=== PATIENT | male | born 1955 | race Caucasian/White ===

== ENCOUNTER → 2017-09-26 12:27 | Outpatient (CLI) | payer BC, SELFPAY | PROVIDERS: PCP General Practice; Visit Provider Surgery | DX: K62.89 Other specified diseases of anus and rectum (principal); I25.10 Atherosclerotic heart disease of native coronary artery without angina pectoris; I10 Essential (primary) hypertension; Z01.818 Encounter for other preprocedural examination | CPT/HCPCS: 93005; 93010 ==

== ENCOUNTER 2017-12-20 11:40 | Outpatient (CLI) | payer BC, SELFPAY ==
--- NOTE | 2017-12-20 11:40 | DI.RAD_ITS ---
SYMPTOM/DIAGNOSIS: PAIN RIGHT KNEE: Two views. There is moderate narrowing of the medial femoral tibial joint space. Periarticular spurring is seen involving all three joint compartments. There are large enthesophytes seen at the superior and inferior patella. There are also hypertrophic changes seen at the anterior tibial tuberosity. No acute fracture or dislocation is seen. The soft tissues are unremarkable. IMPRESSION: Moderate osteoarthritis of the right knee.
== END 2017-12-20 12:00 ==
PROVIDERS: PCP General Practice; Visit Provider Physician Assistant Surgical
DX: M25.561 Pain in right knee (principal); M17.11 Unilateral primary osteoarthritis, right knee
CPT/HCPCS: 73560

== ENCOUNTER 2018-06-30 09:29 | Emergency (ER) | payer BC, SELFPAY ==
[2018-06-30 09:34] VITALS: BP 156/116; PULSE 69; RESP 20; TEMP 36.2; O2SAT 96
--- NOTE | 2018-06-30 09:34 | W.ED.GENAD ---
Discharge Plan Disposition Patient Disposition: HOME Condition: Stable Discharge Details Chief Complaint: Epistaxis Clinical Impression: Right-sided epistaxis Primary Care Provider: Emery Goel ED Provider: Gumaro Delong Home Meds and New Rx's Prescriptions: New oxycodone 5 mg tablet 5 mg PO Q6H PRN (Reason: pain) Qty: 12 RF: 0 Continued acetaminophen [Tylenol Extra Strength] 500 mg tablet 1,000 mg PO DAILY PRNRF: 0 celecoxib [Celebrex] 200 mg capsule 200 mg PO DAILY RF: 0 celecoxib [Celebrex] 200 mg capsule 200 mg PO DAILY RF: 0 lisinopril 20 MG tablet 40 mg PO DAILY RF: 0 hydrochlorothiazide 25 MG tablet 25 mg PO DAILY RF: 0 doxazosin 4 MG tablet 4 mg PO DAILY RF: 0 Eliquis 5 MG tablet 5 mg PO BID RF: 0 metoprolol succinate 50 MG tablet extended release 24 hr 3 tab PO DAILY RF: 0 atorvastatin [Lipitor] 10 MG tablet 10 mg PO DAILY RF: 0 aspirin [Aspirin Low-Strength] 81 MG tablet,chewable 81 mg PO DAILY RF: 0 Discharge Instructions Instructions: Nosebleed (ED) Additional Instructions: if you are not contacted for an appointment with an ears, nose and throat specialist for Tuesday or Tuesday return to the emergency department on those days to have the packing removed if you have worsening bleeding return to the emergency department Medical Decision Making 62 yo male on asa and eliquis for afib and cad, comes in with right sided nose bleed that started this morning. Denies any trauma, no chest pain or sob. Direct pressure for 15 minutes hasn't slowed it down and has significant oozing from anterior right nare on exam, do not feel afrin likely to control bleeding so will place rhino rocket and reassess. Oozing is from anterior nose so doubt posterior nose bleed rhino rocket placed without incident and complications and bleeding has ceased. Will try and see if we can get him an appointment to see if ent can remove it Tuesday or tuesday, if unable advised to return here for removal Differential Diagnosis epistaxis, anterior vs posterior HPI General Mode of arrival: ambulatory. Date/Time Provider Initiated Documentation: 06/30/18 09:34. Limitations to Documentation: no limitations. Information obtained by: patient. History of Present Illness 62 year old M presents to the emergency department with the chief complaint of nose bleed, described as moderate, No relieving factors improve symptom(s), No exacerbating factors reported . Patient notes no other symptoms.. Patient did receive the following treatments prior to arrival, none Related Data Home Medications Medication Instructions Recorded Confirmed hydrochlorothiazide 25 mg PO DAILY 06/03/14 06/30/18 lisinopril 40 mg PO DAILY 06/03/14 06/30/18 Eliquis 5 mg PO BID 03/02/17 06/30/18 doxazosin 4 mg PO DAILY 03/02/17 06/30/18 aspirin [Aspirin Low-Strength] 81 mg PO DAILY 09/26/17 06/30/18 atorvastatin [Lipitor] 10 mg PO DAILY 09/26/17 06/30/18 metoprolol succinate 3 tab PO DAILY 09/26/17 06/30/18 acetaminophen 500 mg tablet 1,000 mg PO DAILY PRN tab 12/20/17 06/30/18 celecoxib 200 mg capsule 200 mg PO DAILY 12/23/17 06/30/18 celecoxib 200 mg capsule 200 mg PO DAILY 06/15/18 06/30/18 oxycodone 5 mg PO Q6H PRN #12 tab 06/30/18 Previous Rx's Medication Instructions Recorded oxycodone 5 mg PO Q6H PRN #12 tab 06/30/18 Allergies Allergy/AdvReac Type Severity Reaction Status Date / Time lansoprazole [From Prevacid] Allergy Intermediate Hives Verified 06/30/18 09:37 simvastatin [From Zocor] AdvReac Mild muscle Verified 06/30/18 09:37 aches Review of Systems Review of Systems All systems reviewed & are unremarkable except as noted in HPI and below Constitutional Denies chills, Denies fever(s) and Denies weakness Cardiovascular Denies chest pain and Denies dyspnea Respiratory Denies cough and Denies dyspnea Gastrointestinal Denies abdominal pain, Denies nausea and Denies vomiting Integumentary/Breasts Denies rash Neurologic Denies weakness PFSH Medical History CAD (coronary artery disease) CVA (cerebral vascular accident) (04/14/13) Depression HTN (hypertension) Hyperlipidemia [place] (myocardial infarction) DAVEY (obstructive sleep apnea) Obesity PAF (paroxysmal atrial fibrillation) Surgical History Cholecystectomy Colonoscopy - MAC (09/30/17) Coronary Stent Tonsillectomy Social History Smoking/Tobacco Use Status: Never Alcohol Intake: never Drug use: Rarely Do you feel safe at home: Yes Do you feel safe in your relationship?: Yes Exam Const General: no acute distress Orientation: alert HENMT Head: normal to inspection Ears: external ears normal General nose exam: no nasal polyps Mouth: moist mucous membranes Eyes General: appearance normal, both eyes and all related structures Neck Neck: normal visual inspection Resp Effort & Inspection: normal respiratory effort and able to speak in complete sentences Cardio Rate: regular rate Skin General skin exam: no rashes or lesions noted Neuro General: alert and oriented x3 Extrem General: normal to inspection Psych Mental Status: mental status grossly normal Procedures Epistaxis Control Time Out Performed: Yes Nostril: right Direct Inspection: yes Clots Removed by: blowing nose Cautery Used: none Device Inserted: other (rhino rocket) Device Size: 7 Patient Tolerated Procedure: well Complications: other (none)
--- NOTE | 2018-06-30 09:37 | ED.GENADUL_ITS ---
Discharge Plan Disposition Patient Disposition: HOME Condition: Stable Discharge Details Chief Complaint: Epistaxis Clinical Impression: Right-sided epistaxis Primary Care Provider: Emery Goel ED Provider: Gumaro Delong Home Meds and New Rx's Prescriptions: New oxycodone 5 mg tablet 5 mg PO Q6H PRN (Reason: pain) Qty: 12 RF: 0 Continued acetaminophen [Tylenol Extra Strength] 500 mg tablet 1,000 mg PO DAILY PRNRF: 0 celecoxib [Celebrex] 200 mg capsule 200 mg PO DAILY RF: 0 celecoxib [Celebrex] 200 mg capsule 200 mg PO DAILY RF: 0 lisinopril 20 MG tablet 40 mg PO DAILY RF: 0 hydrochlorothiazide 25 MG tablet 25 mg PO DAILY RF: 0 doxazosin 4 MG tablet 4 mg PO DAILY RF: 0 Eliquis 5 MG tablet 5 mg PO BID RF: 0 metoprolol succinate 50 MG tablet extended release 24 hr 3 tab PO DAILY RF: 0 atorvastatin [Lipitor] 10 MG tablet 10 mg PO DAILY RF: 0 aspirin [Aspirin Low-Strength] 81 MG tablet,chewable 81 mg PO DAILY RF: 0 Discharge Instructions Instructions: Nosebleed (ED) Additional Instructions: if you are not contacted for an appointment with an ears, nose and throat specialist for Tuesday or Tuesday return to the emergency department on those days to have the packing removed if you have worsening bleeding return to the emergency department Medical Decision Making 62 yo male on asa and eliquis for afib and cad, comes in with right sided nose bleed that started this morning. Denies any trauma, no chest pain or sob. Direct pressure for 15 minutes hasn't slowed it down and has significant oozing from anterior right nare on exam, do not feel afrin likely to control bleeding so will place rhino rocket and reassess. Oozing is from anterior nose so doubt posterior nose bleed rhino rocket placed without incident and complications and bleeding has ceased. Will try and see if we can get him an appointment to see if ent can remove it Tuesday or tuesday, if unable advised to return here for removal Differential Diagnosis epistaxis, anterior vs posterior HPI General Mode of arrival: ambulatory . Date/Time Provider Initiated Documentation: 06/30/18 09:34 . Limitations to Documentation: no limitations . Information obtained by: patient . History of Present Illness 62 year old M presents to the emergency department with the chief complaint of nose bleed, described as moderate, No relieving factors improve symptom(s), No exacerbating factors reported . Patient notes no other symptoms.. Patient did receive the following treatments prior to arrival, none Related Data Home Medications Medication Instructions Recorded Confirmed hydrochlorothiazide 25 mg PO DAILY 06/03/14 06/30/18 lisinopril 40 mg PO DAILY 06/03/14 06/30/18 Eliquis 5 mg PO BID 03/02/17 06/30/18 doxazosin 4 mg PO DAILY 03/02/17 06/30/18 aspirin [Aspirin Low-Strength] 81 mg PO DAILY 09/26/17 06/30/18 atorvastatin [Lipitor] 10 mg PO DAILY 09/26/17 06/30/18 metoprolol succinate 3 tab PO DAILY 09/26/17 06/30/18 acetaminophen 500 mg tablet 1,000 mg PO DAILY PRN tab 12/20/17 06/30/18 celecoxib 200 mg capsule 200 mg PO DAILY 12/23/17 06/30/18 celecoxib 200 mg capsule 200 mg PO DAILY 06/15/18 06/30/18 oxycodone 5 mg PO Q6H PRN #12 tab 06/30/18 Previous Rx's Medication Instructions Recorded oxycodone 5 mg PO Q6H PRN #12 tab 06/30/18 Allergies Allergy/AdvReac Type Severity Reaction Status Date / Time lansoprazole [From Prevacid] Allergy Intermediate Hives Verified 06/30/18 09:37 simvastatin [From Zocor] AdvReac Mild muscle Verified 06/30/18 09:37 aches Review of Systems Review of Systems All systems reviewed & are unremarkable except as noted in HPI and below Constitutional Denies chills, Denies fever(s) and Denies weakness Cardiovascular Denies chest pain and Denies dyspnea Respiratory Denies cough and Denies dyspnea Gastrointestinal Denies abdominal pain, Denies nausea and Denies vomiting Integumentary/Breasts Denies rash Neurologic Denies weakness PFSH Medical History CAD (coronary artery disease) CVA (cerebral vascular accident) (04/14/13) Depression HTN (hypertension) Hyperlipidemia [place] (myocardial infarction) DAVEY (obstructive sleep apnea) Obesity PAF (paroxysmal atrial fibrillation) Surgical History Cholecystectomy Colonoscopy - MAC (09/30/17) Coronary Stent Tonsillectomy Social History Smoking/Tobacco Use Status: Never Alcohol Intake: never Drug use: Rarely Do you feel safe at home: Yes Do you feel safe in your relationship?: Yes Exam Const General: no acute distress Orientation: alert HENMT Head: normal to inspection Ears: external ears normal General nose exam: no nasal polyps Mouth: moist mucous membranes Eyes General: appearance normal, both eyes and all related structures Neck Neck: normal visual inspection Resp Effort & Inspection: normal respiratory effort and able to speak in complete sentences Cardio Rate: regular rate Skin General skin exam: no rashes or lesions noted Neuro General: alert and oriented x3 Extrem General: normal to inspection Psych Mental Status: mental status grossly normal Procedures Epistaxis Control Time Out Performed: Yes Nostril: right Direct Inspection: yes Clots Removed by: blowing nose Cautery Used: none Device Inserted: other (rhino rocket) Device Size: 7 Patient Tolerated Procedure: well Complications: other (none)
[2018-06-30 10:13] VITALS: BP 192/156; PULSE 69; RESP 20; TEMP 36.2; O2SAT 98
--- NOTE | 2018-06-30 11:02 | PDOC.ERCMPRO ---
Care Management Progress Note 06/30-Dr. Delong requested assistance with an ENT f/u Tuesday/Tuesday, July 03 or , for removal of nasal packing. Referral faxed to ENT this am.
== END 2018-06-30 10:30 | disposition home or self-care (01) ==
PROVIDERS: Emergency Provider Emergency Medicine; PCP General Practice
DX: R04.0 Epistaxis (principal); I48.91 Unspecified atrial fibrillation; Z79.01 Long term (current) use of anticoagulants
CPT/HCPCS: 30901

== ENCOUNTER 2019-01-26 09:54 | Outpatient (REF) | payer MEDICARE, BC, SELFPAY ==
[2019-01-26 13:01] LABS: HGB 15.5 g/dL (13.5-17.5); Mean Corp. HGB Concentration 32.3 g/dL (32.0-36.0); Mean Corpuscular Hemoglobin 29.3 pg (27.0-33.0); Mean Corpuscular Volume 90.7 fL (80-95); Mean Platelet Volume 11.4 fL (8.0-11.0); Platelet Count 257 x1000/uL (130-400); RBC 5.29 m/cumm (4.50-6.00); RBC Distribution Width 15.4 % (11.8-14.1); White Blood Cell Count 8.15 k/cumm (4.4-10.8)
[2019-01-26 13:34] LABS: ALT 25 U/L (16-63); AST 18 U/L (15-37); Albumin 3.6 g/dL (3.4-5.0); Alkaline Phosphatase 126 U/L (46-116); Anion Gap 8.7 mmol/L (3-11); BUN 24 mg/dL (7-18); Bilirubin, Total 0.8 mg/dL (0.2-1.0); CO2 28.3 mmol/L (21.0-32.0); CREATININE 1.11 mg/dL (0.70-1.30); Calcium 8.9 mg/dL (8.5-10.1); Calculated LDL 86 mg/dL; Chloride 106 mmol/L (98-107); Cholesterol 143 mg/dL (<200); Glucose 101 mg/dL (74-106); HDL Cholesterol 45 mg/dL (40-60); Potassium 4.5 mmol/L (3.5-5.1); Sodium 143 mmol/L (136-145); Total Protein 7.1 g/dL (6.4-8.2); Triglyceride 64 mg/dL (<150)
[2019-01-26 13:42] LABS: COMMENT (LAB VIEW ONLY) 178.08 mg/dL
[2019-01-26 14:05] LABS: Microalb ug/mg Crea 525.2 ug/mg Cr
[2019-01-26 14:11] LABS: PROTEIN 137.3 mg/dL
[2019-01-26 14:18] LABS: Prot/Crea Ur Ratio 0.77
== END 2019-01-26 10:14 ==
LOC: NCHCN 09:54
PROVIDERS: PCP Nurse Practitioner Family; Visit Provider Nurse Practitioner Family
DX: I10 Essential (primary) hypertension (principal); I25.10 Atherosclerotic heart disease of native coronary artery without angina pectoris
CPT/HCPCS: 80053; 80061; 85027; 82043; 82565; 82570; 84156

== ENCOUNTER 2019-08-13 13:56 | Outpatient (CLI) | payer MEDICARE, BC, SELFPAY ==
[2019-08-15 22:45] LABS: SARS-CoV-2 RNA Undetected (Undetected)
== END 2019-08-13 14:16 ==
PROVIDERS: PCP Nurse Practitioner Family; Visit Provider Nurse Practitioner Family
DX: Z03.818 Encounter for observation for suspected exposure to other biological agents ruled out (principal)
CPT/HCPCS: U0003

== ENCOUNTER 2019-10-03 21:48 | Outpatient (REF) | payer MEDICARE, BC, SELFPAY ==
[2019-10-03 19:55] LABS: Clarity Cloudy (Clear)
[2019-10-03 20:30] LABS: C & S Indicated? No
== END 2019-10-03 22:08 ==
LOC: NCHCN 21:48
PROVIDERS: PCP Nurse Practitioner Family; Visit Provider Nurse Practitioner Family
DX: R31.0 Gross hematuria (principal)
CPT/HCPCS: 81003; 81015

== ENCOUNTER 2019-10-05 11:31 | Emergency (ER) | payer MEDICARE, BC, SELFPAY ==
[2019-10-05 11:38] VITALS: BP 101/52; PULSE 98; RESP 20; TEMP 36.3; O2SAT 96
--- NOTE | 2019-10-05 11:46 | W.ED.GENAD ---
Discharge Plan Disposition Patient Disposition: HOME Condition: Fair Discharge Details Chief Complaint: GenMedical Clinical Impression: UTI (urinary tract infection), Acute kidney injury, Dehydration Primary Care Provider: Seng Chand ED Provider: Manju Sharpe Home Meds and New Rx's Prescriptions: Continued acetaminophen [Tylenol Extra Strength] 500 mg tablet 1,000 mg PO DAILY PRNRF: 0 lisinopril 20 MG tablet 40 mg PO DAILY RF: 0 hydrochlorothiazide 25 MG tablet 25 mg PO DAILY RF: 0 doxazosin 4 MG tablet 4 mg PO DAILY RF: 0 Eliquis 5 MG tablet 5 mg PO BID RF: 0 metoprolol succinate 50 MG tablet extended release 24 hr 3 tab PO DAILY RF: 0 atorvastatin [Lipitor] 10 MG tablet 10 mg PO DAILY RF: 0 aspirin [Aspirin Low-Strength] 81 MG tablet,chewable 81 mg PO DAILY RF: 0 Discharge Instructions Instructions: Urinary Tract Infection in Men (ED) Additional Instructions: Please continue to encourage water intake. Please continue with your antibiotics, even if symptoms improve please take entire course. You are dehydrated and have changes in your blood work indicating kidney dysfunction. This is improving and likely associated with dehydration. These labs should be rechecked by your primary care. If you develop back pain, vomiting, abdominal pain, inability to stay hydrated or other new/worsening symptoms please seek care urgently once again. Please follow up with primary care provider at 3:45 with AMBIKA Simpson . Referrals: Ambrose Luna [ [facility] STAFF PHYSICIAN] - Discharge Data Discharge Date/Time-TO BE ENTERED AT DEPARTURE: 10/05/19 16:12 Medical Decision Making Patient is a pleasant 63-year-old male presenting today with chief complaint of dysuria and hematuria. Was seen by his primary care 2 days ago started on ciprofloxacin for early prostatitis. We were contacted by primary care office who sent him over here as they are concerned he may be developing sepsis. Over the past 2 days, patient has been having bouts of sweating, chills. Reports T-max of 99.7 ?F. He denies any abdominal pain. No GI upset. Denies any back or flank pain. States that the hematuria has been decreasing as has his dysuria. He states that initially, he was having 10 out of 10 pain with urination now he reports it to be a 6 out of 10. States that he did have a prostate exam completed on Tuesday and at that time it was nontender for him. On exam, patient appears nontoxic. He is noted to have a low blood pressure with a blood pressure of 101/52. However, primary care that called did report that the patient has been more hypotensive recently and attributes this to his weight loss and continuation on his antihypertensive medications. Patient has been tolerating this well. He is not endorsing any lightheadedness. He is afebrile currently. Abdominal exam is benign. Urine does appear to have RBCs and he did have some blood around his genitals. exam is significant for an enlarged prostate, More so on the right side than the left. This is firm. No boggy areas are palpated. He has no tenderness with this exam. No melena or hematochezia noted. Labs obtained. Patient has elevated lactate at 2.2. WBC 11.8. Creatinine 1.69, Patient does appear dry on exam and is currently receiving IV hdyration. UA has blood, leukocyte esterase and bacteria. While patient does have elevated lactate and creatinine, i am wondering if this is associated with dehydration. he has not been drinking much. He has no CVA tenderness, no abdominal pain or prostate tenderness. He is afebrile and nontoxic appearing. We will continue to hydrate and recheck lactate and BMP. Labs rechecked. Lactate now WNL. Creatinine is downtrending. Patient and I discussed disposition at length. Again, he has been improving with ciprofloxacin. I do not see evidence at pyelonephritis or prostatitis with a CONSUELO. He would prefer to go home and at this point, particularly since the patient is improving, this would be approrpiate. However, I would like for him to f/u closely with PCP and have his kidney function rechecked. Encouarged hydration intake. Strict return precautions given. I did call PCP and arrange for close f/u. He will continue with the ciprofloxacin. All of his questions and concerns were addressed, he is in agreement iwth this plan. HPI General Mode of arrival: ambulatory. Date/Time Provider Initiated Documentation: 10/05/19 11:46. Limitations to Documentation: no limitations. Information obtained by: patient and RN notes reviewed. History of Present Illness 63 year old M presents to the emergency department with the chief complaint of dysurea, described as severe, with intensity rated at 10. Quality is described as burning, and is localized to the genitals. Patient reports no radiation. Patient started experiencing this day(s) and it has been constant (improving since beginning antibiotics). Medication improves symptom(s), (feeling improved since bieng on antibiotics) Other factors that worsen symptoms (pain only present with urination) . Patient notes fever/chills (reports low grade fevers); denies cough, loss of appetite, nausea/vomiting, rash and shortness of breath. Patient did receive the following treatments prior to arrival, other (currently on ciprofloxacin) Related Data Home Medications Medication Instructions Recorded Confirmed hydrochlorothiazide 25 mg PO DAILY 06/03/14 10/05/19 lisinopril 40 mg PO DAILY 06/03/14 10/05/19 Eliquis 5 mg PO BID 03/02/17 10/05/19 doxazosin 4 mg PO DAILY 03/02/17 10/05/19 aspirin [Aspirin Low-Strength] 81 mg PO DAILY 09/26/17 10/05/19 atorvastatin [Lipitor] 10 mg PO DAILY 09/26/17 10/05/19 metoprolol succinate 3 tab PO DAILY 09/26/17 10/05/19 acetaminophen 500 mg tablet 1,000 mg PO DAILY PRN tab 12/20/17 10/05/19 Allergies Allergy/AdvReac Type Severity Reaction Status Date / Time lansoprazole [From Prevacid] Allergy Intermediate Hives Verified 06/30/18 09:37 simvastatin [From Zocor] AdvReac Mild muscle Verified 06/30/18 09:37 aches General Stated Complaint: GenMedical RUBIA: 3 Review of Systems Constitutional Constitutional: Reports as per HPI, Denies chills, Reports fever(s) and Denies poor appetite Cardiovascular Cardiovascular: Denies chest pain Respiratory Respiratory: Denies cough Gastrointestinal Gastrointestinal: Denies abdominal pain, Denies change in bowel habits, Denies nausea and Denies vomiting Genitourinary Genitourinary: Reports as per HPI Musculoskeletal Musculoskeletal: Reports as per HPI and Denies back pain Integumentary/Breasts Skin/Breast: Reports as per HPI and Denies rash [facility] Medical History (Updated 10/05/19 @ 16:01 by AMBIKA Salvador) CAD (coronary artery disease) CVA (cerebral vascular accident) (04/14/13) Depression HTN (hypertension) Hyperlipidemia [place] (myocardial infarction) Obesity DAVEY (obstructive sleep apnea) PAF (paroxysmal atrial fibrillation) Surgical History Cholecystectomy Colonoscopy - MAC (09/30/17) Coronary Stent Tonsillectomy Social History Smoking/Tobacco Use Status: Never Alcohol Intake: never Drug use: Rarely Do you feel safe at home: Yes Do you feel safe in your relationship?: Yes Exam Const General: cooperative, healthy appearing, comfortable, no acute distress, well developed and well groomed Nutritional Appearance: well nourished and obese Orientation: alert and awake HENCA Mouth: mucous membranes dry (appears dry) Resp Effort & Inspection: normal respiratory effort and no respiratory distress Auscultation: clear to auscultation bilaterally, no rales, no rhonchi and no wheezes Cardio Rate: regular rate Rhythm: regular rhythm Heart Sounds: S1 normal and S2 normal GI Inspection: normal to inspection Palpation: soft, no hepatosplenomegaly, not firm, no guarding, not rigid and nontender Rectal Exam: visual inspection normal, normal sphincter tone, prostate normal, No heme positive stool (normal, brown stool), No prostate abnormal and No tenderness Back/Spine/Pelvis Back: no CVA tenderness Skin General skin exam: no rashes or lesions noted Trauma: no lacerations or abrasions Neuro General: patient alert and patient awake Cognition: normal cognition Speech: speech normal Gait: normal gait Psych Appearance: grossly normal and well kempt Mental Status: mental status grossly normal Speech and Movement: speech and movement normal Course Vital Signs Vital signs: Vital Signs Temperature 36.3 C L 10/05/19 11:38 Pulse 98 H 10/05/19 11:38 Respiratory Rate 10/05/19 11:38 Blood Pressure 101/52 L 10/05/19 11:38 Pulse Oximetry 96 10/05/19 11:38 Temperature 36.3 C L 10/05/19 11:38 Temperature Source Skin 10/05/19 11:38 Pulse 98 H 10/05/19 11:38 Respiratory Rate 10/05/19 11:38 Respiratory Effort 10/05/19 11:43 Blood Pressure 101/52 L 10/05/19 11:38 Blood Pressure Position Sitting 08/21/20 11:38 Pulse Oximetry 96 10/05/19 11:38 Oxygen Delivery Method Room Air 10/05/19 11:38 Oxygen Flow Rate 0 10/05/19 11:38 Pain Level 6 10/05/19 11:38 Comment 10/05/19 11:38
[2019-10-05] MEDS: Normal Saline 1,000 ML 1000 ML IV (12:05)
[2019-10-05] MEDS: Normal Saline Flush 10 ML SYR IVP (12:05)
[2019-10-05 12:06] LABS: Abs Immature Grans 0.04 10^3/uL (0.0-0.06); Absolute Basophil Count 0.02 10^3/uL (0.0-0.2); Absolute Eosinophil Count 0.01 10^3/uL (0.0-0.7); Absolute Monocyte Count 0.72 10^3/uL (0.1-0.8); Basophils % 0.2; Eosinophils % 0.1; HCT 41.4 % (40.0-50.0); HGB 14.1 g/dL (13.5-17.5); Immature Grans % 0.3; Lymphocytes % 7.4; MCH 30.7 pg (27.0-33.0); MCHC 34.1 % (32.0-36.0); MCV 90.2 fL (80-95); MPV 10.8 fL (8.0-11.0); Monocytes % 6.1; Neutrophils % 85.9; Nucleated RBC 0 %; Platelet Count 199 10^3/uL (130-400); RBC 4.59 10^6/uL (4.36-5.78); RDW 14.9 % (11.8-14.1); RDW-SD 49.3 fL; WBC 11.83 10^3/uL (4.4-10.8)
[2019-10-05 12:07] LABS: Bilirubin Small (Negative); Blood Large (Negative); Clarity Sl Cloudy (Clear); Glucose Negative (Negative); Ketones Negative (Negative); Leukocyte Esterase Small (Negative); Nitrite Negative (Negative); pH 5.5 (5-8)
[2019-10-05 12:07] LABS: Absolute Lymphocyte Count 0.88 10^3/uL (1.2-3.4); Absolute Neutrophil Count 10.16 10^3/uL (1.2-6.7)
[2019-10-05 12:11] LABS: Lactate 2.2 mmol/L (0.6-1.4)
[2019-10-05 12:18] VITALS: RESP 16
[2019-10-05 12:24] LABS: ALT 23 U/L (16-63); AST 17 U/L (15-37); Albumin 2.7 g/dL (3.4-5.0); Alkaline Phosphatase 78 U/L (46-116); Anion Gap 9.5 mmol/L (3-11); BUN 24 mg/dL (7-18); CO2 25.5 mmol/L (21.0-32.0); CREATININE 1.69 mg/dL (0.70-1.30); Calcium 8.6 mg/dL (8.5-10.1); Chloride 99 mmol/L (98-107); Estimated GFR 40.93 (mL/min/1.73m2); Glucose 113 mg/dL (74-106); Potassium 3.5 mmol/L (3.5-5.1); Sodium 134 mmol/L (136-145); Total Protein 7.8 g/dL (6.4-8.2)
[2019-10-05 12:25] LABS: Bacteria Many HPF (Negative); Crystals Negative HPF (Negative); Epithelial Cells Rare HPF (Negative); Other Cells Few Renal (Negative); RBC >50 HPF (0-2); WBC >50 HPF (0-5)
[2019-10-05 12:26] LABS: Mucus Moderate (Negative)
[2019-10-05 12:27] LABS: C & S Indicated? Yes
[2019-10-05 12:29] VITALS: BP 123/89; PULSE 83; RESP 12; TEMP 36.7; O2SAT 98
[2019-10-05] MEDS: Lactated Ringers 1,000 ML 1000 ML IV (13:34)
[2019-10-05 14:18] VITALS: BP 131/72; PULSE 96; TEMP 36.6; O2SAT 98
[2019-10-05 15:04] LABS: Lactate 1.4 mmol/L (0.6-1.4)
[2019-10-05 15:15] LABS: Anion Gap 8.1 mmol/L (3-11); BUN 23 mg/dL (7-18); CO2 26.9 mmol/L (21.0-32.0); CREATININE 1.53 mg/dL (0.70-1.30); Calcium 8.2 mg/dL (8.5-10.1); Chloride 100 mmol/L (98-107); Estimated GFR 45.91 (mL/min/1.73m2); Glucose 95 mg/dL (74-106); Potassium 3.4 mmol/L (3.5-5.1); Sodium 135 mmol/L (136-145)
[2019-10-05 16:07] VITALS: BP 125/91; PULSE 93; RESP 24; TEMP 36.8; O2SAT 97
== END 2019-10-05 16:12 | disposition home or self-care (01) ==
PROVIDERS: Emergency Provider Physician Assistant; PCP Nurse Practitioner Family
DX: N39.0 Urinary tract infection, site not specified (principal); N17.9 Acute kidney failure, unspecified; E86.0 Dehydration; R50.9 Fever, unspecified; N40.1 Benign prostatic hyperplasia with lower urinary tract symptoms; R30.0 Dysuria; I10 Essential (primary) hypertension; Z79.01 Long term (current) use of anticoagulants; I48.0 Paroxysmal atrial fibrillation
CPT/HCPCS: 36415; 80048; 80053; 96360; 96361; 99284; 81003; 81015; 83605; 85025; 87086; J3490

== ENCOUNTER 2019-10-10 01:06 | Outpatient (CLI) | payer MEDICARE, BC, SELFPAY ==
--- NOTE | 2019-10-10 | DI.US_ITS ---
EXAM: US RENAL CLINICAL HISTORY: GROSS HEMATURIA, R31.0 TECHNIQUE: Ultrasound performed using standard protocol. COMPARISON: No exams were available for comparison FINDINGS: The kidneys are normal in size and shape. There is no evidence of renal mass, hydronephrosis, nephro lithiasis. Urinary bladder contained 81 cc. The patient was unable to void. Ureteral jets were nonvisualized. IMPRESSION: Negative renal ultrasound. In the setting of gross hematuria, additional evaluation with renal CT or MRI exam, or cystoscopy and retrograde study may be considered. DATA REPOSITORY:
== END 2019-10-10 01:26 ==
PROVIDERS: PCP Nurse Practitioner Family; Visit Provider Nurse Practitioner Family
DX: R31.0 Gross hematuria (principal)
CPT/HCPCS: 76770

== ENCOUNTER 2020-05-12 15:41 | Outpatient (REF) | payer MEDICARE, BC, SELFPAY ==
[2020-05-12 15:32] LABS: HCT 46.6 % (40.0-50.0); HGB 15.8 g/dL (13.5-17.5); MCH 30.2 pg (27.0-33.0); MCHC 33.9 % (32.0-36.0); MCV 88.9 fL (80-95); MPV 11.4 fL (8.0-11.0); Platelet Count 274 10^3/uL (130-400); RBC 5.24 10^6/uL (4.36-5.78); RDW 14.3 % (11.8-14.1); RDW-SD 46.2 fL; WBC 7.74 10^3/uL (4.4-10.8)
[2020-05-12 15:59] LABS: Hemoglobin A1C 5.7 % (<5.7)
[2020-05-12 16:16] LABS: ALT 41 U/L (16-63); AST 28 U/L (15-37); Albumin 3.8 g/dL (3.4-5.0); Alkaline Phosphatase 89 U/L (46-116); Anion Gap 10.2 mmol/L (3-11); BUN 26 mg/dL (7-18); Bilirubin, Total 0.9 mg/dL (0.2-1.0); CO2 26.8 mmol/L (21.0-32.0); CREATININE 1.3 mg/dL (0.70-1.30); Calcium 9.1 mg/dL (8.5-10.1); Chloride 105 mmol/L (98-107); Estimated GFR 55.23 (mL/min/1.73m2); Glucose 115 mg/dL (74-106); Potassium 3.6 mmol/L (3.5-5.1); Sodium 142 mmol/L (136-145); TSH (W/Ref FT4) 1.06 uIU/mL (0.36-3.74); Total Protein 7.9 g/dL (6.4-8.2)
[2020-05-12 16:27] LABS: COMMENT (LAB VIEW ONLY) 215.95 mg/dL
[2020-05-12 16:29] LABS: Microalb ug/mg Crea 74.1 ug/mg Cr
[2020-05-12 22:11] LABS: PSA, Screening 3.2 ng/mL (0.0-4.5)
[2020-05-13 09:43] LABS: HIV-1/2 Ag & Ab Screen Negative (Negative)
[2020-05-13 10:07] LABS: Hepatitis C Ab w Rflx HCV PCR Negative (Negative)
[2020-05-19 12:08] LABS: Testosterone, Free 9.43 ng/dL (3.47-13.0); Testosterone, Total 410 ng/dL (240-950)
== END 2020-05-12 15:42 | disposition home or self-care (01) ==
LOC: NCHCN 15:41
PROVIDERS: PCP Nurse Practitioner Family; Visit Provider Nurse Practitioner Family
DX: I10 Essential (primary) hypertension (principal); E78.5 Hyperlipidemia, unspecified; N52.9 Male erectile dysfunction, unspecified; Z68.41 Body mass index [BMI] 40.0-44.9, adult; Z51.81 Encounter for therapeutic drug level monitoring; Z12.5 Encounter for screening for malignant neoplasm of prostate; R73.09 Other abnormal glucose; Z11.59 Encounter for screening for other viral diseases; Z11.4 Encounter for screening for human immunodeficiency virus [HIV]
CPT/HCPCS: 80053; 84153; 84402; 84403; 85027; 86803; 87389; 82043; 82570; 83036; 84443

== ENCOUNTER 2021-08-25 15:53 | Outpatient (REF) | payer MEDICARE, BC, SELFPAY ==
[2021-08-25 14:49] LABS: HCT 46.1 % (40.0-50.0); HGB 15.5 g/dL (13.5-17.5); MCH 30.1 pg (27.0-33.0); MCHC 33.6 % (32.0-36.0); MCV 90 fL (80-95); MPV 11.5 fL (8.0-11.0); Platelet Count 299 10^3/uL (130-400); RBC 5.15 10^6/uL (4.36-5.78); RDW 15.1 % (11.8-14.1); WBC 8.65 10^3/uL (4.4-10.8)
[2021-08-25 14:54] LABS: ALT 31 U/L (16-63); AST 25 U/L (15-37); Albumin 3.7 g/dL (3.4-5.0); Alkaline Phosphatase 101 U/L (46-116); Anion Gap 11.8 mmol/L (3-11); BUN 21 mg/dL (7-18); Bilirubin, Total 0.6 mg/dL (0.2-1.0); CO2 28.2 mmol/L (21.0-32.0); CREATININE 1.3 mg/dL (0.70-1.30); Calcium 8.7 mg/dL (8.5-10.1); Calculated LDL 92 mg/dL (<100); Chloride 104 mmol/L (98-107); Cholesterol 152 mg/dL (<200); Estimated GFR 55.06 (mL/min/1.73m2); Glucose 110 mg/dL (74-106); HDL Cholesterol 41 mg/dL (40-60); Potassium 3.8 mmol/L (3.5-5.1); Sodium 144 mmol/L (136-145); Total Protein 7.4 g/dL (6.4-8.2); Triglyceride 97 mg/dL (<150)
[2021-08-25 17:22] LABS: Hemoglobin A1C 5.9 % (<5.7)
[2021-08-26 18:35] LABS: PSA, Screening 3.2 ng/mL (<=4.5)
== END 2021-08-25 15:54 | disposition home or self-care (01) ==
LOC: NCHCN 15:53
PROVIDERS: PCP Nurse Practitioner Family; Visit Provider Physician Assistant
DX: E78.5 Hyperlipidemia, unspecified (principal); R73.03 Prediabetes; Z12.5 Encounter for screening for malignant neoplasm of prostate; I48.0 Paroxysmal atrial fibrillation
CPT/HCPCS: 80053; 80061; 84153; 85027; 83036

== ENCOUNTER 2022-02-14 14:25 | Emergency (ER) | payer MEDICARE, BC, SELFPAY ==
[2022-02-14 14:36] VITALS: BP 160/95; PULSE 82; RESP 18; TEMP 36.7; O2SAT 97
--- NOTE | 2022-02-14 16:02 | ED.GENADUL_ITS ---
Discharge Plan Disposition Patient Disposition: Transfer-Acute Inpatient Care Specific Acute Inpt Facility: [facility] Condition: Serious Discharge Details Clinical Impression: Change in vision Primary Care Provider: Unknown,Unknown ED Provider: John Montana Home Meds and New Rx's Prescriptions: No Action acetaminophen [Tylenol Extra Strength] 500 mg tablet 1,000 mg PO DAILY PRN hydrochlorothiazide 25 MG tablet 25 mg PO DAILY doxazosin 4 MG tablet 4 mg PO DAILY Eliquis 5 MG tablet 5 mg PO BID diltiazem HCl 120 mg capsule,extended release 12 hr 1 cap PO DAILY Label Comments: TAKE ONE CAPSULE BY MOUTH EVERY DAY losartan 100 mg tablet 1 tab PO DAILY Label Comments: TAKE ONE TABLET BY MOUTH EVERY DAY atorvastatin [Lipitor] 10 MG tablet 10 mg PO DAILY aspirin [Aspirin Low-Strength] 81 MG tablet,chewable 81 mg PO DAILY Discharge Instructions Additional Instructions: You are offered ambulance transportation to [facility] and you have declined and wished to travel by private vehicle. Please go immediately to [facility] hospital in [place]. Go to clinic 4B in the main hospital building. You will be seen by ophthalmology. Please call us here if you have any difficulty [phone]. Return to the emerge department immediately for any worsening or new concerning symptoms Discharge Data Discharge Date/Time-TO BE ENTERED AT DEPARTURE: 02/14/22 16:22 Medical Decision Making 66-year-old male with multiple medical including history of coronary artery disease, CVA, hypertension, hyperlipidemia, A. fib, on Eliquis, here with visual disturbance left eye. Patient notes blurred vision left eye. Symptoms started 2 days ago with what are described as electrical shocks in his vision and then yesterday Yanna ink spots which have persisted. Visual disturbance is painless. Concern for retinal detachment versus vitreous detachment and hemorrhage. Bedside POC ocular ultrasound performed by me and concerning for vitreous detachment. I called [facility] transfer center to request transfer. I spoke with Dr. Staples who discussed case with attending Dr. Juan process, they will accept the patient in transfer to their clinic today. Patient wishes to be driven by his . I did offer ambulance and this was declined. HPI General Mode of arrival: ambulatory . Date/Time Provider Initiated Documentation: 02/14/22 14:48 . Limitations to Documentation: no limitations . Information obtained by: patient and family . HPI Narrative: 66-year-old male with history of coronary artery disease, CVA, hypertension, hyperlipidemia, A. fib, on Eliquis, here with chief complaint of visual disturbance. Patient notes 2 days ago he experienced visual disturbance described as electrical shocks in his left eye. Yesterday he started to experience black ink and black spots in his left vision. This has persisted. He notes blurred vision now. Patient denies numbness, tingling or weakness. No headache. No pain in his eye. Related Data Home Medications Medication Instructions Recorded Confirmed hydrochlorothiazide 25 mg tablet 25 mg PO DAILY 06/03/14 02/14/22 apixaban 5 mg tablet (Eliquis) 5 mg PO BID 03/02/17 02/14/22 doxazosin 4 mg tablet 4 mg PO DAILY 03/02/17 02/14/22 aspirin 81 mg chewable tablet 81 mg PO DAILY 09/26/17 02/14/22 (Aspirin Low-Strength) atorvastatin 10 mg tablet (Lipitor) 10 mg PO DAILY 09/26/17 02/14/22 acetaminophen 500 mg tablet 1,000 mg PO DAILY PRN 12/20/17 02/14/22 (Tylenol Extra Strength) diltiazem HCl 120 mg 1 cap PO DAILY 02/14/22 02/14/22 capsule,extended release 12 hr losartan 100 mg tablet 1 tab PO DAILY 02/14/22 02/14/22 Allergies Allergy/AdvReac Type Severity Reaction Status Date / Time lansoprazole [From Prevacid] Allergy Intermediate Hives Verified 02/14/22 14:44 simvastatin [From Zocor] AdvReac Mild muscle Verified 02/14/22 14:44 aches General Stated Complaint: EyeProblem RUBIA: 2 Review of Systems All systems reviewed & are unremarkable except as noted in HPI and below Constitutional Constitutional: Denies fever(s) Eyes Eyes: Reports as per HPI PFSH All Active Problems (Updated 02/14/22 @ 16:10 by John Montana MD) Change in vision (Acute) Medical History (Updated 02/14/22 @ 16:10 by John Montana MD) CAD (coronary artery disease) CVA (cerebral vascular accident) (04/14/13) Depression HTN (hypertension) Hyperlipidemia CO (myocardial infarction) Obesity DAVEY (obstructive sleep apnea) PAF (paroxysmal atrial fibrillation) Surgical History Cholecystectomy Colonoscopy - MAC (09/30/17) Coronary Stent Tonsillectomy Social History Smoking/Tobacco Use Status: Never Smoking risk assessment performed?: Yes Alcohol Intake: current Alcohol Intake frequency: holidays/special occasions only Alcohol type: beer Drug use: Rarely Substance use type: does not use Do you feel safe at home: Yes Do you feel safe in your relationship?: Yes Exam Const General: cooperative and no acute distress HENMT Head: normocephalic and atraumatic Mouth: moist mucous membranes Eyes Alignment and Position: alignment normal Periorbital: periorbital findings normal Conjunctivae: normal conjunctivae Sclera: normal sclerae Pupils: PERRL EOM: EOM intact bilaterally Direct ophthalmoscopy: no papilledema Other: Unable to visualize retina on the left with panoptic Resp Auscultation: clear to auscultation bilaterally, no rales, no rhonchi and no wheezes Cardio Rate: regular rate and not tachycardic Rhythm: regular rhythm Neuro General: patient alert, patient awake, patient oriented x3 and tone normal Cognition: normal cognition Speech: speech normal Motor: strength 5/5 throughout Sensory Exam: no sensory deficits noted Extrem General: no edema Course Vital Signs Vital signs: Vital Signs Temperature 36.7 C 02/14/22 14:36 Pulse 82 02/14/22 14:36 Respiratory Rate 18 02/14/22 14:36 Blood Pressure 160/95 H 02/14/22 14:36 Pulse Oximetry 97 02/14/22 14:36 Temperature 36.7 C 02/14/22 14:36 Temperature Source Temporal Artery Scan 02/14/22 14:36 Pulse 82 02/14/22 14:36 Respiratory Rate 18 02/14/22 14:36 Respiratory Effort Non-Labored 02/14/22 14:45 Blood Pressure 160/95 H 02/14/22 14:36 Blood Pressure Position Sitting 02/14/22 14:36 Pulse Oximetry 97 02/14/22 14:36 Oxygen Delivery Method Room Air 02/14/22 14:36 Oxygen Flow Rate 0 02/14/22 14:36 Pain Level 0 02/14/22 14:36 PAWSS Have you Been Recently Intoxicated or Drunk Within the Last 30 days?: No Have you Ever Experienced Previous Episodes of Alcohol Withdrawal?: No Have you ever Experienced Withdrawal Seizures?: No Have you ever Experienced Delirium Tremens(DT)s?: No Have you ever undergone Alcohol Rehabilitation Treatment (i.e, inpt ot outpatient treatment programs)?: No Have you ever Experienced Blackouts?: No Have you ever Combined Alcohol with other Downers within the last 90 days?: No Have you ever Combined Alcohol with any other Substance of Abuse during the last 90 days?: No Positive Blood Alcohol level on Presentation? [PCS.BAL]: No Evidence of Increased Autonomic Activity (i.e. HR>120, tremor, sweating, agitation, nausea)?: No Result: 0
== END 2022-02-14 16:22 | disposition short-term general hospital (02) ==
PROVIDERS: Emergency Provider Student in an Organized Health Care Education/Training Program
DX: H53.8 Other visual disturbances (principal)
CPT/HCPCS: 99285

== ENCOUNTER 2022-06-25 16:15 | Outpatient (REF) | payer MEDICARE, BC, SELFPAY ==
[2022-06-25 14:42] LABS: HCT 45.3 % (40.0-50.0); MCH 29.2 pg (27.0-33.0); MCHC 33.1 % (32.0-36.0); MCV 88 fL (80-95); MPV 11.2 fL (8.0-11.0); Platelet Count 271 10^3/uL (130-400); RBC 5.13 10^6/uL (4.36-5.78); RDW 14.7 % (11.8-14.1); RDW-SD 47.8 fL
[2022-06-25 15:17] LABS: ALT 30 U/L (16-63); AST 25 U/L (15-37); Albumin 3.6 g/dL (3.4-5.0); Alkaline Phosphatase 98 U/L (46-116); Anion Gap 8.7 mmol/L (3-11); BUN 19 mg/dL (7-18); Bilirubin, Total 0.7 mg/dL (0.2-1.0); CO2 29.3 mmol/L (21.0-32.0); CREATININE 1.3 mg/dL (0.70-1.30); Calcium 9.2 mg/dL (8.5-10.1); Calculated LDL 57 mg/dL (<100); Chloride 106 mmol/L (98-107); Cholesterol 114 mg/dL (<200); Estimated GFR 59.84 (mL/min/1.73m2); Glucose 115 mg/dL (74-106); HDL Cholesterol 40 mg/dL (40-60); Potassium 3.5 mmol/L (3.5-5.1); Sodium 144 mmol/L (136-145); Total Protein 7.7 g/dL (6.4-8.2); Triglyceride 88 mg/dL (<150)
[2022-06-25 19:29] LABS: Hemoglobin A1C 5.8 % (<5.7)
== END 2022-06-25 16:16 | disposition home or self-care (01) ==
LOC: NCHCN 16:15
PROVIDERS: Visit Provider Physician Assistant
DX: E78.5 Hyperlipidemia, unspecified (principal); I48.0 Paroxysmal atrial fibrillation; R73.03 Prediabetes
CPT/HCPCS: 80053; 80061; 85027; 83036

== ENCOUNTER → 2022-11-11 03:32 | Outpatient (CLI) | payer MEDICARE, BC, SELFPAY ==
--- NOTE | 2022-11-11 | DI.US_ITS ---
Exam(s) US CAROTID EXAM: US CAROTID CLINICAL HISTORY: DIZZINESS,R42. TECHNIQUE: Ultrasound carotids performed using grayscale, color-flow, and spectral Doppler imaging. COMPARISON: None FINDINGS: CAROTID ARTERIES: There is some plaque at the level both carotid bulbs and proximal ICAs but there are no significantly elevated velocities. VERTEBRAL ARTERIES: Antegrade flow demonstrated in both vertebral arteries in the neck. Measurements: R Bulb: 39.2cm/s PS / 13.9cm/s ED R CCA: 55.4cm/s PS / 16.2cm/s ED R ECA: 72cm/s PS / 15.2cm/s ED R ICA Prox: 46.1cm/s PS / 16.4cm/s ED R ICA Mid: 59.9cm/s PS / 15.8cm/s ED R ICA Distal: 61cm/s PS /19.6cm/s ED R Vert: 62.1cm/s PS / 16.3cm/s ED R SVR: 1.1 R DVR: 1.2 L Bulb: 51.6cm/s PS / 15.9cm/s ED L CCA: PS / 12.1cm/s ED L ECA: 80.8cm/s PS / 13cm/s ED L ICA Prox: 54.5cm/s PS / 18.5cm/s ED L ICA Mid: 50.7cm/s PS / 12.3cm/s ED L ICA Distal: 85.2cm/s PS / 25.8cm/s ED L Vert: 50.1cm/s PS / 17.3cm/s ED L SVR: 1.7 L DVR: 2.1 IMPRESSION: There is some plaque bilaterally at the carotid bulbs and proximal ICAs but no evidence of elevated v elocities. This implies that the amount of stenosis is less than 50 percent bilaterally. Antegrade flow demonstrated in both vertebral arteries. Criteria for Carotid Stenosis: Normal: ICA PSV <125 cm/s no plaque or intimal thickening is visible. <50% stenosis: ICA PSV <125 cm/s and plaque or intimal thickening is visible. 50-69% stenosis: ICA PSV is 125-250 cm/s and plaque is visible. >70% stenosis to near occlusion: ICA PSV >250 cm/s with visible plaque and luminal narrowing. DATA REPOSITORY:
== END ==
PROVIDERS: Visit Provider Physician Assistant
DX: I65.23 Occlusion and stenosis of bilateral carotid arteries
CPT/HCPCS: 93880

== ENCOUNTER 2022-11-29 12:51 | Outpatient (CLI) | payer MEDICARE, BC, SELFPAY ==
--- NOTE | 2022-11-29 08:45 | DI.RAD_ITS ---
Exam(s) XR KNEE RT 3V AP,LAT,YURIY EXAM: XR KNEE RT 3V AP,LAT,YURIY CLINICAL HISTORY: RIGHT KNEE PAIN. TECHNIQUE: 2D digital imaging was performed of the right knee. Three views obtained. AP, lateral an d PA tunnel views were obtained. COMPARISON: CR XR knee RT 2V AP,lat from 12/20/2017 FINDINGS: BONES: No acute fracture is present. No bony destructive lesion is seen. There are enthesophytes at t he anterior patella. There is a well corticated osseous density again seen at the anterior tibial tu berosity. JOINTS: There has been progression of the degenerative changes in the right knee since the prior exam ination. There is marked narrowing of the medial femoral tibial joint space. There are osteophytes involving all 3 joint compartments. No joint effusion is seen. SOFT TISSUE: Normal. IMPRESSION: Progressive degenerative changes in the right knee which are now moderately severe. DATA REPOSITORY: RADIATION DOSE DELIVERED:
== END 2022-11-29 12:52 | disposition home or self-care (01) ==
LOC: DIORS 12:51
PROVIDERS: PCP Physician Assistant; Referring Provider Physician Assistant; Visit Provider Student in an Organized Health Care Education/Training Program
DX: M17.11 Unilateral primary osteoarthritis, right knee
CPT/HCPCS: 73562; 99213

== ENCOUNTER 2023-03-07 04:45 | Outpatient (CLI) | payer MEDICARE, BC, SELFPAY ==
[2023-03-07 14:14] LABS: HCT 47.3 % (40.0-50.0); HGB 16.1 g/dL (13.5-17.5); MCH 29.4 pg (27.0-33.0); MCV 86 fL (80-95); MPV 10.7 fL (8.0-11.0); Platelet Count 256 10^3/uL (130-400); RBC 5.48 10^6/uL (4.36-5.78); RDW 14.6 % (11.8-14.1); RDW-SD 46.5 fL; WBC 10.28 10^3/uL (4.4-10.8)
[2023-03-07 14:29] LABS: Anion Gap 10.8 mmol/L (3-11); BUN 22 mg/dL (7-18); CO2 25.2 mmol/L (21.0-32.0); CREATININE 1.5 mg/dL (0.70-1.30); Calcium 9.1 mg/dL (8.5-10.1); Chloride 104 mmol/L (98-107); Estimated GFR 50.08 (mL/min/1.73m2); Glucose 101 mg/dL (74-106); Potassium 3.7 mmol/L (3.5-5.1); Sodium 140 mmol/L (136-145)
== END 2023-03-07 04:46 | disposition home or self-care (01) ==
LOC: LBO 04:45
PROVIDERS: PCP Physician Assistant; Visit Provider Student in an Organized Health Care Education/Training Program
DX: M17.11 Unilateral primary osteoarthritis, right knee (principal); Z01.818 Encounter for other preprocedural examination
CPT/HCPCS: 36415; 80048; 85027; 73560; 77073

== ENCOUNTER 2023-03-07 15:48 | Outpatient (CLI) | payer MEDICARE, BC, SELFPAY ==
--- NOTE | 2023-03-07 13:00 | DI.RAD_ITS ---
Exam(s) XR KNEE RT 1V XR STANDING ALIGNMENT EXAM: XR STANDING ALIGNMENT and XR knee RT 1 V CLINICAL HISTORY: PRE OP RIGHT TKR. TECHNIQUE: 2D digital imaging was performed. Five images were obtained. COMPARISON: CR XR knee RT 2V AP,lat from 12/20/2017 CR XR KNEE RT 3V AP,LAT,YURIY from 11/29/2022 FINDINGS: BONES: The hips are well maintained. The left knee is well maintained. There is marked narrowing of the medial joint compartment of the right knee. There are osteophytes seen at the posterior patella . In these 0 fights are seen at the anterior aspect of the right patella. There is a well-circumscr ibed bony density adjacent to the anterior tibial tuberosity which appears chronic. There is a small joint effusion. There is a mild genu varus deformity of the right leg. The ankles are well maintai danay.There is no significant leg length discrepancy. SOFT TISSUE: Normal. IMPRESSION: Arthrosis of the right knee. DATA REPOSITORY: RADIATION DOSE DELIVERED:
== END 2023-03-07 15:49 | disposition home or self-care (01) ==
LOC: DIORS 15:48
PROVIDERS: PCP Physician Assistant; Visit Provider Physician Assistant
DX: M17.11 Unilateral primary osteoarthritis, right knee (principal); Z01.818 Encounter for other preprocedural examination
CPT/HCPCS: 73560; 77073

== ENCOUNTER 2023-03-22 05:52 | Day surgery (SDC) | payer MEDICARE, BC, SELFPAY ==
[2023-03-22] VITALS (12 sets, daily range): BP systolic 107–143; BP diastolic 53–93; PULSE 66–90; RESP 14–18; TEMP 36.2–36.7; O2SAT 93–97; BMI 44.4
--- NOTE | 2023-03-22 06:25 | ANES.PREOP_ITS ---
General Info Date of Service Date Performed: 03/22/23 Height: 5 ft 10 in Weight: 140.614 kg Body Mass Index (BMI): 44.4 Surgical Procedure: Operation Date: 03/22/23 07:40 Proposed Procedure Side Surgeon p Knee Total Arthroplasty w/OrthAlign, Cementless CR Right Michael Spencer MD Meds Allergies and Home Medications Allergies Allergy/AdvReac Type Severity Reaction Status Date / Time lansoprazole [From Prevacid] Allergy Intermediate Hives Verified 03/18/23 10:56 simvastatin [From Zocor] AdvReac Mild muscle Verified 03/18/23 10:56 aches Home Medication Medication Instructions Recorded apixaban 5 mg tablet (Eliquis) 5 mg PO BID 03/02/17 doxazosin 4 mg tablet 4 mg PO DAILY 03/02/17 hydrochlorothiazide 25 mg tablet 12.5 mg PO DAILY 11/29/22 diltiazem HCl 120 mg 120 mg PO DAILY 03/07/23 capsule,extended release 12 hr losartan 100 mg tablet 100 mg PO DAILY 03/07/23 ezetimibe 10 mg tablet 10 mg PO DAILY 03/18/23 acetaminophen 500 mg tablet 1,000 mg (2 x 500 mg) PO Q8H PRN 03/22/23 pain #90 tabs dexamethasone 4 mg tablet 4 mg PO DAILY #2 tabs 03/22/23 docusate sodium 100 mg capsule 100 mg PO BID #30 caps 03/22/23 (Colace) gabapentin 300 mg capsule 300 mg PO QHS #14 caps 03/22/23 meloxicam 15 mg tablet 15 mg PO DAILY #30 tabs 03/22/23 oxycodone 5 mg tablet 5 mg PO Q4H PRN #18 tabs 03/22/23 Current Visit Medications: Current Medications Generic Name Dose Route Start Last Admin Trade Name Freq PRN Reason Stop Dose Admin Acetaminophen 1,000 mg 03/22/23 06:00 Acetaminophen 500 Mg Tab PO 03/22/23 18:00 PREOP JOANA Gabapentin 300 mg 03/22/23 06:00 Gabapentin 300 Mg Cap PO 03/22/23 18:00 PREOP JOANA Tranexamic Acid 1,000 mg/ 60 mls @ 360 mls/hr 03/22/23 06:00 Sodium Chloride IVPB 03/22/23 18:00 PREOP JOANA Ringer's Solution 1,000 mls @ 80 mls/hr 03/22/23 06:00 IV 04/20/23 23:59 INFUSION JOANA Cefazolin Sodium 3,000 mg/ 100 mls @ 200 mls/hr 03/22/23 06:00 Sodium Chloride IVPB 03/22/23 16:00 PREOP JOANA IV Miscellaneous Supplies 1 each 03/22/23 06:00 Iv Access IV 04/20/23 23:59 DIRECTED JOANA Meloxicam 7.5 mg 03/22/23 06:00 Meloxicam 7.5 Mg Tab PO 03/22/23 16:00 PREOP JOANA Sodium Chloride 0 ml 03/22/23 06:00 Normal Saline Flush 10 Ml Syr IV 04/20/23 23:59 PRN PRN Sodium Chloride 0 ml 03/22/23 06:00 Normal Saline 10 Ml Vial IJ 04/20/23 23:59 DIRECTED PRN Sterile Water 0 ml 03/22/23 06:00 Water,Injection,Sterile 10 Ml Vial IJ 04/20/23 23:59 DIRECTED PRN [facility] Active Problems Active Problems: Problem Status Onset Code Osteoarthritis of right knee M17.11 Medical History Medical History Chronic a-fib CVA (cerebral vascular accident) (04/14/13) 2018-19. Pt. states he lost part of his speech and had to go to speech therapy and has got 85% of it back. Has been dc'd from neurology at [facility] Obesity HTN (hypertension) PAF (paroxysmal atrial fibrillation) MT (myocardial infarction) 2010 [place] [facility] [place] Hyperlipidemia Depression CAD (coronary artery disease) DAVEY (obstructive sleep apnea) Does not wear machine Surgical History Surgical History Calcaneal spur, left foot Tonsillectomy Coronary Stent 2011 Colonoscopy - MAC (09/30/17) Cholecystectomy Tobacco Smoking/Tobacco Use Status: Never Alcohol Alcohol Intake: current Alcohol intake frequency: holidays/special occasions only Alcohol type: beer Substance Use Substance use: Never Substance use type: does not use Vital Signs and Lab Results Lab Results Blood Type / Crossmatch: No Data to Display Complete Blood Count: White Blood Count 10.28 10^3/uL (4.4-10.8) 03/07/23 14:05 Red Blood Count 5.48 10^6/uL (4.36-5.78) 03/07/23 14:05 Hemoglobin 16.1 g/dL (13.5-17.5) 03/07/23 14:05 Hematocrit 47.3 % (40.0-50.0) 03/07/23 14:05 Platelet Count 256 10^3/uL (130-400) 03/07/23 14:05 Complete Metabolic Panel: Sodium 140 mmol/L (136-145) 03/07/23 14:05 Potassium 3.7 mmol/L (3.5-5.1) 03/07/23 14:05 Chloride 104 mmol/L (98-107) 03/07/23 14:05 Carbon Dioxide 25.2 mmol/L (21.0-32.0) 03/07/23 14:05 BUN 22 mg/dL (7-18) H 03/07/23 14:05 Creatinine 1.5 mg/dL (0.70-1.30) H 03/07/23 14:05 Est GFR (CKD-EPI 2020) 50.08 (mL/min/1.73m2) 03/07/23 14:05 Calcium 9.1 mg/dL (8.5-10.1) 03/07/23 14:05 Glucose 101 mg/dL (74-106) 03/07/23 14:05 Liver Function Panel: No Data to Display Coagulation Panel: No Data to Display Cardiac Panel: No Data to Display Arterial Blood Gas: No Data to Display Venous Blood Gas: No Data to Display Pancreas Panel: No Data to Display Thyroid Panel: No Data to Display Infectious Disease: No Data to Display Blood Cultures: No Data to Display Toxicology Panel: No Data to Display Imaging and Studies Imaging and Studies Study information below may be from another EMR and interpreted by another provider. Please see original notes in EMR for more complete details. Stress Test Summary: STRESS TEST - NUCLEAR MEDICINE PATIENT NAME: ISSAC ESPINO UNIT #: [id number] ADMITTING PROVIDER: CARLA FAUST, JESUS PRIMARY CARE PROVIDER: SONJA BRYAN MD DATE OF SERVICE: 07/12/13 : 1955 PRE-STRESS EVALUATION DATE: 07/12/13 : 51 HEIGHT: 70 inches WEIGHT: 300 lbs BP: 160/80 PULSE: 52 SUBJECTIVE: Hx a-fib. States it's been a while since he has had anything done. States he's had a stroke 3 weeks ago and was put on new medication. States CVA left him with speech deficit. Hx MT with stent 4-5 years ago. Smoker: Never Exercises Regularly: No Elevated lipids: Chol: 134 Diabetes: Neg HDL: 34 Hypertension: Yes LDL: 84 Asthma: Neg [facility] Allergies: Prevacid. Family History: Father/MT's Medications: Lisinopril, metoprolol, coumadin, Statin. PHYSICAL EXAMINATION: HR reg. LS clear. RESTING 12-LEAD EKG: Sinus bradycardia at 58 bpm with nonspecific T-wave changes. * STRESS TEST REPORT PROTOCOL: Lexiscan TARGET HEART RATE: N/A (% of maximal). TARGET HEART RATE ACHIEVED: N/A TERMINATION OF EXERCISE: ARRHYTHMIAS: Rare PAC's ANGINA: None ASSESSMENT: Myocardial perfusion imaging shows no significant defects. LVEF 40% but visually the LVEF is essentially normal. IMPRESSION: Negative for ischemia. Patient Name: ISSAC ESPINO Unit #: [id number] Loc: DI Ordering Provider: JESUS AGUIRRE MD Status: REG CLI Primary Care Provider: SONJA BRYAN MD Date of Exam: 07/12/13 Sex: M : 1955 Age: 57 Exam(s) [id number] NM:MPI Resting & Stress GRP Reason for exam: CAD, 414.00, A FIB, 427.31 Medical History: Comment: SYMPTOMS/DIAGNOSIS: CORONARY ARTERY DISEASE, AFIB, CVA Department of Nuclear Medicine SPECT Nuclear Cardiology Report Exercise: Lexiscan: X Dose: 0.4mgm REST: 15.9 mCi [id number] IV was administered at 7:40 AM on 07/12/13 in accordance with established rest protocol procedures. Images of the heart were obtained with SPECT reconstruction. STRESS: 46.3 mCi [id number] IV was administered at 8:55 AM on 07/12/13 in accordance with established stress protocol procedures. Images of the heart were obtained with SPECT reconstruction. INTERPRETATION: View Normal Transient Mixed Fixed Perfusion Defect Defect Defect Short Doole X Vertical Long Doole X Horizontal Long Doole X Low dose, non-diagnostic CT used for attenuation correction only. EJECTION FRACTION: 40% EDV: ml ESV: ml GATED WALL MOTION: visually appears 50-60% NORMAL OTHER (DESCRIBE) CONCLUSION: No evidence of ischemia. TECH: TF The exam was performed on 07/12/13 and read by the Radiologist on 07/12/13, the Facilities Maintenance Assistant did not read until 07/17/13. CC: CARLA FAUST, JESUS Dictated By: BENJAMIN AGUIRRE MD [id number] <Electronically signed by BENJAMIN WAGGONER MD> 07/18/13 0823 <Electronically signed by JESUS AGUIRRE MD> 07/26/13 0734 Transcribed By: Francie Madrigal 07/17/13 0922 Technologist: Kole Isaac This is privileged, confidential information intended only for the provider named. Any use or distribution by any person other than this provider is strictly prohibited. If you receive this report in error, please notify us immediately at [phone] and return the original report to us at the address above. Thank-you. Carotid Artery Summary:: Patient Name: Issac Espino Unit #: [id number] Loc: DI Ordering Provider: Ambrose Luna Status: REG CLI Primary Care Provider: None,None Date of Exam: 11/11/22 Sex: M Admission Date: 11/11/22 : 1955 Age: 67 Exam(s) US CAROTID EXAM: US CAROTID CLINICAL HISTORY: DIZZINESS,R42. TECHNIQUE: Ultrasound carotids performed using grayscale, color-flow, and spectral Doppler imaging. COMPARISON: None FINDINGS: CAROTID ARTERIES: There is some plaque at the level both carotid bulbs and proximal ICAs but there are no significantly elevated velocities. VERTEBRAL ARTERIES: Antegrade flow demonstrated in both vertebral arteries in the neck. Measurements: R Bulb: 39.2cm/s PS / 13.9cm/s ED R CCA: 55.4cm/s PS / 16.2cm/s ED R ECA: 72cm/s PS / 15.2cm/s ED R ICA Prox: 46.1cm/s PS / 16.4cm/s ED R ICA Mid: 59.9cm/s PS / 15.8cm/s ED R ICA Distal: 61cm/s PS /19.6cm/s ED R Vert: 62.1cm/s PS / 16.3cm/s ED R SVR: 1.1 R DVR: 1.2 L Bulb: 51.6cm/s PS / 15.9cm/s ED L CCA: PS / 12.1cm/s ED L ECA: 80.8cm/s PS / 13cm/s ED L ICA Prox: 54.5cm/s PS / 18.5cm/s ED L ICA Mid: 50.7cm/s PS / 12.3cm/s ED L ICA Distal: 85.2cm/s PS / 25.8cm/s ED L Vert: 50.1cm/s PS / 17.3cm/s ED L SVR: 1.7 L DVR: 2.1 IMPRESSION: There is some plaque bilaterally at the carotid bulbs and proximal ICAs but no evidence of elevated velocities. This implies that the amount of stenosis is less than 50 percent bilaterally. Antegrade flow demonstrated in both vertebral arteries. Criteria for Carotid Stenosis: Normal: ICA PSV <125 cm/s no plaque or intimal thickening is visible. <50% stenosis: ICA PSV <125 cm/s and plaque or intimal thickening is visible. 50-69% stenosis: ICA PSV is 125-250 cm/s and plaque is visible. >70% stenosis to near occlusion: ICA PSV >250 cm/s with visible plaque and luminal narrowing. DATA REPOSITORY: Ordered By: Ambrose Luna CC: Dictated By: Mich Black M.D. 11/11/22 1140 <Electronically signed by Mich Black M.D. in [place]> 11/11/22 114 Transcribed By: Mich Black MD This is privileged, confidential information intended only for the provider named. Any use or distribution by any person other than this provider is strictly prohibited. If you receive this report in error, please notify us immediately at [phone] and return the original report to us at the address above. Thank-you. Anesthesia Assessment and Plan Anesthesia History Personal History: No History of Anesthesia Complications Family History: No Family History of Anesthesia Complications Exercise Tolerance Exercise Tolerance: Metabolic Equivalents>4 Pertinent Negatives Pertinent Negatives: No Symptoms of GERD, No Major Cardiovascular Symptoms or Complaints and No Major Pulmonary Symptoms or Complaints Cardiac & Pulmonary Exam Cardiac Exam: Normal S1/S2 Heart Sounds (distant) Pulmonary Exam: Clear Bilateral Breath Sounds Implantable Cardiac Device Does patient have a Pacemaker or an ICD?: No Airway Exam Known Difficult Airway: No Mallampati Class: 3 Mouth Opening: Normal (> 3cm) Thyromental Distance: Greater than 3 cm Facial Hair: Full Franks Neck Range of Motion: Full ROM Neck Circumference: Normal Teeth Condition: Normal Dentition ASA Classification ASA Score: ASA 3 Emergency Case?: No NPO Status NPO Status: NPO Clears >2 hours, Solids >8 hours Anesthesia Plan Resuscitation Status: Full Code Anesthesia Technique: Spinal Anesthesia Airway Planned: Natural Airway Pain Management: Surgeon and patient request nerve block Monitors Used: Standard Monitors Preoperative Comments:: History of cva and mi with stents- cleared by cardiology no further testing required
[2023-03-22] MEDS: Lactated Ringers 1,000 ML 80 ML IV (07:03)
[2023-03-22] MEDS: Gabapentin 300 MG CAP PO (07:04)
[2023-03-22] MEDS: Acetaminophen 500 MG TAB 1000 MG PO (07:04)
[2023-03-22] MEDS: MELOXICAM 7.5 MG TAB PO (07:10)
--- NOTE | 2023-03-22 07:21 | PDOC.DSDIS_ITS ---
Date of service: 03/22/23 Time of Service: 07:26 Discharge Plan Disposition Patient Disposition: Home Condition: Good Discharge Details Reason For Visit: Right knee DJD Attending Provider: Michael Spencer Primary Care Provider: Ambrose Luna Home Meds and New Rx's Prescriptions: New acetaminophen 500 mg tablet 1,000 mg PO Q8H PRN Qty: 90 0RF Rx Instructions: Take two tablets up to every 8 hours as needed for pain docusate sodium [Colace] 100 mg capsule 100 mg PO BID Qty: 30 0RF meloxicam 15 mg tablet 15 mg PO DAILY Qty: 30 1RF Rx Instructions: Take one tablet daily for pain and inflammation dexamethasone 4 mg tablet 4 mg PO DAILY Qty: 2 0RF Rx Instructions: Take one tablet once daily for two days gabapentin 300 mg capsule 300 mg PO QHS Qty: 14 0RF Rx Instructions: Take one tablet at bedtime oxycodone 5 mg tablet 5 mg PO Q4H PRNQty: 18 0RF Rx Instructions: Take one tablet up to every 4 hours as needed for severe postoperative pain Continued hydrochlorothiazide 25 mg tablet 12.5 mg PO DAILY doxazosin 4 MG tablet 4 mg PO DAILY Eliquis 5 MG tablet 5 mg PO BID diltiazem HCl 120 mg capsule,extended release 12 hr 120 mg PO DAILY Patient Comments: TAKE ONE CAPSULE BY MOUTH EVERY DAY losartan 100 mg tablet 100 mg PO DAILY Patient Comments: TAKE ONE TABLET BY MOUTH EVERY DAY ezetimibe 10 mg tablet 10 mg PO DAILY Patient Comments: TAKE ONE TABLET BY MOUTH EVERY DAY Discontinued acetaminophen [Tylenol Extra Strength] 500 mg tablet 1,000 mg PO DAILY PRN celecoxib [Celebrex] 100 mg capsule 100 mg PO DAILY Discharge Instructions Additional Instructions: Total Knee Discharge Instructions Activity: The most important activity is to walk and to work on gentle motion (both flexion and extension). You should try to take short walks a few times a day. It is important that when resting you work on keeping the knee straight. Avoid putting a pillow behind the knee as this will encourage flexion. Work on range of motion exercises as provided by Physical Therapy. - Start outpatient physical therapy within 2 weeks. - You should wear the VIDAL hose on both legs for 2 weeks. You may remove these at night. You may also use any compression sock in place of the VIDAL hose. - Utilize [employer] to review exercises, see videos on exercises and obtain basic information pertaining to your surgery and your recovery. Dressing: Remove the Matias wrap by 2 days after your surgery and put on the VIDAL stocking given to you from the hospital. Keep the surgical dressing (underneath the MATIAS wrap) in place for at least one week. After the first week it may be removed and replaced with light gauze and tape or nothing. The wound and dressi ng may get wet after 3 days but avoid soaking the dressing or otherwise it will need to be changed. Many people prefer covering the dressing with cling wrap (saran wrap) to minimize it from getting soaked. If it gets wet, just pat dry. If it starts to peel off then it will need to be changed. Medications: - You should take Tylenol and anti-inflammatory Meloxicam as your primary pain control medications. If the Meloxicam is too expensive or not covered, please call the office for another alternative (Advil/Ibuprofen or Naproxen/Aleve) - You have been prescribed a stronger pain medication Oxycodone for breakthrough pain, take as needed as prescribed. - You have been prescribed Gabapentin to take at night for restlessness and nerve pain. - You will resume your anticoagulation, Eliquis, tomorrow for DVT prevention unless instructed otherwise. - You have also been prescribed Decadron to take to control post-operative nausea and pain. You will start this tomorrow. - If you have constipation you should take Colace (which has been prescribed) or Miralax (which is available [id number]). It takes most people 3-4 days to have a bowel movement. Follow-up: 2 weeks If you have any acute concerns or questions, please do not hesitate to contact the office at [phone]. You may contact Dr. Spencer with any questions after hours through the hospital at [phone] or on his cell phone at [phone]. Referrals: Michael Spencer MD [ [facility] STAFF PHYSICIAN] - Equipment/Supplies: Walker Activity:: Elevate Remove Dressings/Wound Care:: Do Not Remove Shower/Bathe:: 72 hours and Cover Diet:: As Tolerated Discharge Orders Discharge Orders: Discharge Order (Routine); Ordered 03/22/23 Ordered By: Serene Kumar
[2023-03-22] MEDS: ceFAZolin 3,000 MG in Normal Saline 100 ML 200 MG IVPB (07:44)
--- NOTE | 2023-03-22 08:22 | W.ANESNERVE ---
Nerve Block Single Injection Procedure Date and Time Date Performed: 03/22/23 Procedure Start: 07:20 Location Where Procedure Performed Procedure Location: Day Surgery Unit Reason Performed: Postoperative Analgesia Requesting Provider: Michael Spencer Timeout Performed Timeout Performed: Yes Monitoring Used ECG, Blood Pressure and SpO2 Sterility Sterility: Hand Hygiene, Surgical Cap, Surgical Mask, Sterile Gloves and Chlorhexidine Sedation Given During Procedure Sedation Given (Indicate Dose Given): No Sedation given Patient Mental Status Patient Mental Status: Awake Nerve Block 1st Nerve Block: Laterality: Right Block Type: Adductor Canal Ultrasound Image Saved?: Yes Needle / Catheter Used: 100mm SonoPlex II Local Anesthetic Bolus (Indicate Dose Given): Lidocaine used for local infiltration of skin, Injected in 3-5ml increments after negative blood aspiration and Bupivacaine 0.25% Dose:: 15mL Additives (Indicate Dose Given): None Ultrasound: Sterile probe cover and gel used Nerve Stimulator: Not Used Paresthesia: None Procedure Tolerated: No Complications and Patient tolerated well Procedure Outcome: Successful Performed By: Magali Rivera Supervised By: Matilda Kasper
--- NOTE | 2023-03-22 09:46 | W.PM.OP ---
Date of service: 03/22/23 Time of Service: 08:05 Operative Note Operative Note DATE OF PROCEDURE: 03/22/23 PRE-OP DIAGNOSIS: Right Knee Osteoarthritis POST-OP DIAGNOSIS: same PROCEDURE: Right Total Knee Replacement with Intraoperative Navigation SURGEON: Michael Spencer EDGER MACHINE OPERATOR: Serene Kumar ANESTHESIA TYPE: Spinal Refer to Anesthesia Record ESTIMATED BLOOD LOSS: 150 PATHOLOGY: none sent TOURNIQUET TIME: 0 COMPLICATIONS: None Patient was transported to: PACU Patient's condition: stable Implants: 1. Depuy Attune Cementless Cruciate Retaining Femoral Component, Size 7 2. Depuy Attune Cementless Fixed Bearing Tibial Component, Size 7 3. Depuy Attune 7x8mm CR/FB Poly 4. Depuy Attune Patellar Component, Size 38 Indications: I have seen Issac in clinic for symptoms of RIGHT knee arthritis, confirmed with radiographic findings. Issac has exhausted nonoperative methods and was having significant limitations in daily function and desired better function and less pain. I discussed the technical details of a knee replacement. I explained the risks of the procedure to include, but not limited to, bleeding, infection, pain, stiffness, fracture, damage to nerves and vessels, damage to muscles and tendons, loosening, need for repeat procedure, blood clot and cardiopulmonary demise. Despite these risks, Issac elected to proceed. Findings: There was significant signs of arthritis throughout the knee involving all three compartments, worse medially. There was an ossicle in the patellar tendon which was protected. Procedure Description: Issac was greeted in the preoperative holding area where the correct side was identified and marked. The consent was reviewed with the patient and signed. The history and physical was updated. All questions were answered. Preoperative mediacations were administered: Acetaminophen 1000mg, Celebrex 400mg, and Gabapentin 300mg. An adductor canal block was then administered by the anesthesia team in the PACU. Issac was taken back to the operating room. A spinal anesthestic was then administered. The patient was placed into the supine position on the operating room table. A nonsterile tourniquet was placed high onto the leg. Posts were placed for positioning during the procedure. All bony prominences were well padded. Prophylactic antibiotics in the form of Cefazolin were administered. 1g of Tranxemic Acid was given intravenously within 30 minutes of incision. The right leg was then prepped with Chloraprep and draped in a standard fashion with impervious stockinette. A second prep with Chloraprep was performed prior to application of Iodine impregnated skin protection. A timeout to confirm correct identity, side and site, procedure, allergies, anesthesia, and medical concerns was performed. With the knee in some flexion, a midline incision was made overlying the knee. Full thickness skin flaps were raised once the extensor mechanism was encountered. These were raised medially and laterally. Any bleeding was controlled with electrocautery. Once the extensor mechanism was fully exposed, a medial parapatellar arthrotomy was performed in a flexed position. All bleeding from the arthrotomy and the geniculate arteries was coagulated. A medial subperiosteal peel was performed with electrocautery to the midcoronal plane. Due to the significant varus deformity the entire medial tibial plateau was exposed. The fat pad was removed while keeping the patellar tendon protected. The anterior distal femur synovium was removed for later visualization. The ACL and PCL were resected and the anterior horn of the lateral meniscus was transected. The knee was then flexed with the patella everted. Large osteophytes from the tibia were removed. Large osteophytes from the femur were removed. A single starting pin was then placed 1cm anterior to the PCL insertion and the notch in the direction of the femoral head. The OrthoAlign device was applied over the pin. It was oriented to be in line with the epicondylar axis and the trochlear groove. It was then pinned into place. The navigation computer was then turned on and calibrated. The distal femur cut was set at 1 degrees varus and 3.5 degrees flexion. The distal femur cutting guide then was positioned for a 9mm cut. The distal femur was cut with an oscillating saw while protecting the soft tissues. The tibia was then addressed. The OrthoAlign device was placed over the tibial tubercle and medial tibia and secured into position. Once again, OrthoAlign was calibrated and then set for a 2 degree varus cut and 5 degrees of posterior slope. With this locked into position, the cut thickness stylus was used to assess cut thickness. The medial side, most involved side, was set for a 6mm cut. This was then held in position and pinned into place with 2 additional pins and a cross pin for stability. The medial and lateral collateral ligaments were protected and the cut was performed. With this completed, it was assessed and noted to be of appropriate dimensions. The guide and OrthoAlign was removed. A spacer block was inserted and the knee was brought into extension to ensure enough space was present. . The Orthoalign gap balancing device was then placed in extension. This was used to ensure that the ligaments were properly balanced with up to 2 to 3 mm laxity laterally compared medially. The extension gap was measured as 20mm. The knee was then brought into 90 degrees of flexion and the ligament saw runner was once again placed. Under the same amount of force the flexion gap was measured. The Attune specific jig was placed and the flexion gap was made to match the extension gap. The femur was then sized as a size 7. The 4-in-1 cutting guide was the placed. An barb wing was used to confirm appropriate position of the anterior cut to avoid notching. This cutting guide was ensured to be flush on the cut surface and then pinned into place with headed pins. While protecting the soft tissues, quad tendon, and collateral ligaments, the anterior and posterior cuts were performed with a saw. The central two pins were removed and the posterior and anterior chamfers were cut next. The notch-cutting guide was placed. This was pinned to lateralize the femoral component as much as possible while keeping it flush on the cut surface. This was then pinned into position. A saw was used to make the notch cut. A rasp smoothed the cut surfaces. The medial and lateral menisci were removed. A trial femoral component was then inserted, impacted down to the cut surfaces, and the lug holes were drilled. A provisional trial tibial component was placed and the knee was brought through range of motion. The polyethylene was trialed until there was good flexion and extension with excellent stability to the medial and lateral collaterals. The patella was tracking without thumbs. A size 8mm polyethylene component provided the best range of motion and stability with less than 2mm gapping with medial and lateral stress and full extension without significant hyperextension. The tibial cut surface was fully exposed. The tibia was then sized as a 7. The tibia had been previously marked during trialing to correspond to the center of the tibial component to help with rotation. The trial was aligned to this toney, approximately rotated to the medial 1/3rd of the tibial tubercle. The trial was pinned into place. The tibia was prepared with a reamer and a keel punch and lug holes. The knee was then brought into extension and the patella was measured as 29mm. Using the patellar clamp and cut guide, this was resected to a flat surface with at least 13mm of thickness remaining. The size 38 patella fit the best. This was oriented and then clamped into position. The lugs were drilled. The trial components were removed. The final components were opened on the back table. The periosteal and capsular tissues, especially posteriorly, around the knee were then systematically injected with a periarticular cocktail consisting of 246mg of Ropivacaine, 0.5mg of Epinephrine, 0.08mg of Clonidine, and 30mg of Ketorolac, diluted to 100cc. On the back table, with the implants opened, the cement was mixed. One batch of high viscosity cement was prepared with vacuum assistance. After the cement was ready a small amount was placed on the cut surface of the patella and the patellar button was clamped into position and held. While the cement was hardening, the cementless knee components were placed. Starting with the tibial component, the tibia was subluxed anteriorly and the lug holes of the component were lined up. The tibia was then impacted with an impactor and mallet until the tibial component was in contact with the tibia. Then, the femoral component was inserted. The lug holes were aligned and the component was impacted into position. The final polyethylene component was inserted. The knee was irrigated with Irrisept Chlorhexadine solution. This was allowed to sit in the knee for 3 minutes and then it was thoroughly irrigated out with saline. After the cement had finally cured, approximately 15min, the clamp was removed from the patella and the knee was taken through range of motion. The patella was tracking with a no-thumbs technique. The capsule was then reapproximated with a No. 1 Vicryl at multiple locations. The capsule was finally closed with a No. 2 Stratafix, barbed suture. Deep tissues were then reapproximated with 0 Vicryl and 2-0 Vicryl. The skin was closed with a running 3-0 Monocryl in a subcuticular fashion. This was reinforced with skin glue. A Mepilex silver dressing was applied along with a [id number] TORIN wrap. A CryoCuff was applied. Issac was transferred to the hospital bed without difficulty an suffering no apparent complication. Issac has a good prognosis. Physical therapy will start today and without restrictions, weight-bearing as tolerated. Eliquis 5mg BID, regular home anticoagulation, will be used for DVT prophylaxis.
[2023-03-22] MEDS: fentaNYL 100 MCG/2 ML VIAL IVP ×2 (10:30→10:40)
[2023-03-22] MEDS: oxyCODONE 5 MG TAB PO (11:10)
--- NOTE | 2023-03-22 11:48 | IN_ITS ---
PT Notes Visit Reasons: Right knee DJD Physical Therapy Day Surgery Initial Evaluation Date: 03/22/2023 Referring Doctor: AMBIKA Wills PT Orders: PT CONSULT: S/P Ortho Surgery Precautions: WBAT on the R LE with AD. Patient Profile/Admitting Diagnosis: Issac is a 67-year-old male with degenerative joint disease of the right knee and is status post right total knee arthroplasty on postoperative day 0. PMHX: Medical History (Updated 03/07/23 @ 13:29 by Serene Kumar) CVA (cerebral vascular accident) (04/14/13) Obesity HTN (hypertension) PAF (paroxysmal atrial fibrillation) NV (myocardial infarction) Hyperlipidemia Depression CAD (coronary artery disease) DAVEY (obstructive sleep apnea) Does not wear machine Surgical History (Updated 03/07/23 @ 13:29 by Serene Kumar) Calcaneal spur, left foot Tonsillectomy Coronary Stent Colonoscopy - MAC (09/30/17) Cholecystectomy Social History/Home Situation: Lives with spouse in a private home with 7 steps to enter with a rail on one side. Independent with all aspects of ADLs prior to surgery without AD although has had increasing difficulty with mobility ADL performance due to worsening arthritis. Equipment Owned/DME: [facility] Subjective: Reports 3/10 pain in the right knee at rest. Denied headache, chest pain, and lightheadedness throughout session. Objective: General Observation: TORIN wraps to right LE. TEDS to L leg. Mental Status: Alert and oriented x 4 Pain: As above ROM: Right Lower Extremity: Hip flexion WFL. Hip abduction WFL. Knee flexion 30 degrees to 100 degrees. Knee extension -30 degrees. Ankle dorsiflexion WFL. Ankle plantarflexion WFL. Left Lower Extremity: Hip flexion WFL. Hip abduction WFL. Knee flexion WFL. Ankle dorsiflexion WFL. Ankle plantarflexion WFL. Strength: Right Lower Extremity: Hip flexors 4/5. Hip abductors 4/5. Knee flexors 3-/5. Knee extensors 3-/5. Ankle dorsiflexors 5/5. Ankle plantarflexors 5/5. Left Lower Extremity:Hip flexors 5/5. Hip abductors 5/5. Knee flexors 5/5. Knee extensors 5/5. Ankle dorsiflexors 5/5. Ankle plantarflexors 5/5. Sensation: Intact tested pain and light pressure in BLE Bed Mobility/Transfers: Minimal cueing provided for use of B hands as needed for support, movement sequence, AD management, and posture to reduce fall risk and minimize pain report Sit to stand contact-guard assist with FWW Stand to sit standby assist with FWW Bed to chair standby assist with FWW Gait: Facilitated safe and correct performance of level surface ambulation covering a distance of 150 feet using front wheeled walker with reciprocal step through Heel-toe gait pattern requiring only standby assist and minimal cueing provided for movement sequence, AD management, and posture to reduce fall risk and minimize pain report. Stairs: Guided patient with safe and correct negotiation of 3 x 4 inch steps and 2 x 6 inch steps holding onto 1 rail and using a single-point cane on the other side requiring only contact-guard assist with step to gait pattern and minimal verbal cueing for movement sequence, increased right knee flexion on each ascent, AD management, and posture to reduce fall risk and minimize pain report. Balance: Static Sitting: Normal Dynamic Sitting: Normal Static Standing: Fair Dynamic Standing: Fair Special Tests: Mobility Limitations Standardized Measure [facility] 6 clicks Basic Mobility Inpatient Short Form: Raw Score: 23 CMS Score: 11% deficit Informed Consent/Education: Patient instructed in purpose of PT consult. Packet containing TKA exercise protocol has been given to patient. Education and training on initial set of exercises that can be done at home have been completed with patient. Trained patient with correct performance of exercises below to maximize motor control, joint flexibility, soft tissue extensibility of the R knee musculature: Access Code: [email or web address] URL: [email or web address] Date: 03/22/2023 Prepared by: Barbra Pichardo Exercises - Supine Quad Set - 1 x daily - 7 x weekly - 1 sets - 10 reps - 5 hold - Supine Heel Slide - 1 x daily - 7 x weekly - 1 sets - 10 reps - 5 hold - Supine Ankle Pumps - 1 x daily - 7 x weekly - 1 sets - 10 reps - 5 hold - Small Range Straight Leg Raise - 1 x daily - 7 x weekly - 1 sets - 10 reps - 5 hold - Seated April - 1 x daily - 7 x weekly - 1 sets - 10 reps - 5 hold Assessment: Patient requires use of a front wheel walker for mobility ADL performance to maximize independence and reduce fall risk. Patient presents with clinical signs and symptoms consistent with current/admitting diagnoses that have resulted to mobility limitations, gait instability, generalized weakness, and impairment of motor control as demonstrated by the following impairment level findings: 1. Decreased strength to R knee major muscle groups 2. Impaired standing balance 3. Limitation of joint range of motion in R knee Impairments are contributing to the following functional limitations: 1. Inability to safely ambulate without assistive device 2. Increase completion time for mobility ADL performance 3. Increased fall risk Patient is assessed as a 70884 moderate complexity based on the following: History: 67-year-old male with impairment level findings, functional limitati ons, and past medical history as indicated above Examination: Demonstrable impairment in strength, balance, and mobility level with underlying impairments and functional limitations as documented above Presentation: Evolving Decision Makin moderate complexity Goals: N/A. PT evaluation and 1-2 treatment sessions only for functional mobility training using recommended AD and for HEP instruction. Plan of Care/Treatment Plan: N/A. PT evaluation and 1-2 treatment session only for functional mobility training using recommended AD and for HEP instruction. DISCHARGE RECOMMENDATIONS: Home when medically cleared by orthopedic surgeon. Recommend outpatient PT services in order to optimize functional mobility outcomes and facilitate return to independent community ambulation without an assistive device. TREATMENT CODE/TIME: 50349 x 20 minutes for 1 unit, 9753 0 x 13 minutes for 1 unit (11:48-12:21) Thank you for the opportunity to participate in the care of this patient. Please sign an return this page within 30 days if you agree with the above POC. Thank you! Physician Signature Date [facility] Thank you for the opportunity to participate in the care of this patient. Barbra Pichardo PT, DPT, CLT [facility] [place], [place]
--- NOTE | 2023-03-22 12:22 | W.ANESPOSTOP ---
Postoperative Evaluation Date, Time and Location Date Performed: 03/22/23 Time Performed: 12:23 Patient Location: Day Surgery Unit Vital Signs Most Recent Imported Vital Signs: Most Recent Vital Signs Temp Pulse Resp BP Pulse Ox 36.5 C 77 17 122/85 94 03/22/23 11:32 03/22/23 11:32 03/22/23 11:32 03/22/23 11:32 03/22/23 11:32 Pain Score Most Recent Pain Score: Most Recent Pain Score Pain Level 3 03/22/23 11:00 Assessment Mental Status: Awake (Alert & Oriented to Patient Baseline) Airway and Respiratory Function: Patent airway with normal (patient baseline) respiratory exam Cardiovascular Function: Hemodynamically Stable Hydration Status: Adequately Hydrated Nausea & Vomiting: No Nausea or Vomiting Pain: Pt. Denies Any Pain Peripheral Nerve Block: Regional nerve block not resolved at time of post operative discharge
== END 2023-03-22 13:03 | disposition home or self-care (01) ==
PROVIDERS: PCP Physician Assistant; Visit Provider Student in an Organized Health Care Education/Training Program
PROC: (CPT 27447; principal; 2023-03-22 07:30)
DX: M17.11 Unilateral primary osteoarthritis, right knee (principal); I48.0 Paroxysmal atrial fibrillation; Z79.01 Long term (current) use of anticoagulants; I10 Essential (primary) hypertension; I25.10 Atherosclerotic heart disease of native coronary artery without angina pectoris; Z95.5 Presence of coronary angioplasty implant and graft; G47.33 Obstructive sleep apnea (adult) (pediatric); E66.9 Obesity, unspecified; I25.2 Old myocardial infarction; Z86.73 Personal history of transient ischemic attack (TIA), and cerebral infarction without residual deficits; Z68.41 Body mass index [BMI] 40.0-44.9, adult
CPT/HCPCS: 27447; 20985; 76942; 97162; 97530; C1776; J0665; J0690; J1100; J2001; J2250; J2371; J2401; J2405; J2598; J2704; J3010

== ENCOUNTER 2023-03-29 13:07 | Outpatient (REF) | payer MEDICARE, BC, SELFPAY ==
[2023-03-29 15:24] LABS: HCT 36.8 % (40.0-50.0); HGB 12.3 g/dL (13.5-17.5); MCH 29.6 pg (27.0-33.0); MCHC 33.4 % (32.0-36.0); MCV 89 fL (80-95); MPV 10.8 fL (8.0-11.0); Platelet Count 311 10^3/uL (130-400); RBC 4.15 10^6/uL (4.36-5.78); RDW 15.9 % (11.8-14.1); RDW-SD 51.4 fL
[2023-03-29 15:31] LABS: ESR 42 mm/hr (0-20)
[2023-03-29 15:52] LABS: Bacteria Many HPF (Negative); C & S Indicated? C&S Done As Ordered; Casts Negative LPF (Negative); Crystals Few Calcium Oxalate HPF (Negative); Epithelial Cells Negative HPF (Negative); Mucus Negative (Negative); RBC Negative HPF (0-2)
[2023-03-29 15:56] LABS: ALT 77 U/L (16-63); AST 26 U/L (15-37); Albumin 2.8 g/dL (3.4-5.0); Alkaline Phosphatase 116 U/L (46-116); Anion Gap 9.8 mmol/L (3-11); BUN 31 mg/dL (7-18); Bilirubin, Total 1.1 mg/dL (0.2-1.0); C-Reactive Protein 5.79 mg/dL (<or=0.5); CO2 27.2 mmol/L (21.0-32.0); CREATININE 1.2 mg/dL (0.70-1.30); Calcium 8.4 mg/dL (8.5-10.1); Chloride 107 mmol/L (98-107); Estimated GFR 65.46 (mL/min/1.73m2); Glucose 124 mg/dL (74-106); Potassium 3.9 mmol/L (3.5-5.1); Sodium 144 mmol/L (136-145); Total Protein 6.3 g/dL (6.4-8.2)
[2023-03-29 23:18] LABS: PSA, Screening 4.8 ng/mL (<=4.5)
== END 2023-03-29 13:08 | disposition home or self-care (01) ==
LOC: NCHCN 13:07
PROVIDERS: PCP Physician Assistant; Visit Provider Student in an Organized Health Care Education/Training Program
DX: R31.0 Gross hematuria (principal); Z12.5 Encounter for screening for malignant neoplasm of prostate
CPT/HCPCS: 80053; 84153; 85027; 85652; 81015; 86140; 87086

== ENCOUNTER 2023-04-04 15:52 | Outpatient (CLI) | payer MEDICARE, BC, SELFPAY ==
--- NOTE | 2023-04-04 09:45 | DI.RAD_ITS ---
Exam(s) XR STANDING ALIGNMENT XR KNEE RT 1V EXAM: XR STANDING ALIGNMENT and XR knee RT 1 V CLINICAL HISTORY: 1ST POST OP S/P R TKA. TECHNIQUE: 2D digital imaging was performed. Five images were obtained. COMPARISON: CR XR STANDING ALIGNMENT from 03/07/2023 CR XR KNEE RT 1V from 03/07/2023 FINDINGS: BONES: There are degenerative changes seen in the hips bilaterally. The patient is now status post r ight total knee replacement. The orthopedic hardware appears in good position. There is still soft tissue swelling around the knee and small joint effusion. The well corticated osseous density adjace nt to the anterior tibial tuberosity is unchanged. There are mild degenerative changes seen in the l eft knee characterized by joint space narrowing and small osteophytes. The ankles are well maintaine d.The right lower extremity measures 98 cm long. The left lower extremity measures 100 cm long. SOFT TISSUE: Normal. IMPRESSION: Right total knee replacement. DATA REPOSITORY: RADIATION DOSE DELIVERED:
== END 2023-04-04 15:53 | disposition home or self-care (01) ==
LOC: DIORS 15:52
PROVIDERS: PCP Physician Assistant; Referring Provider Physician Assistant; Visit Provider Student in an Organized Health Care Education/Training Program
DX: Z96.651 Presence of right artificial knee joint (principal); Z47.1 Aftercare following joint replacement surgery
CPT/HCPCS: 73560; 77073

== ENCOUNTER → 2023-04-26 03:28 | Outpatient (CLI) | payer MEDICARE, BC, SELFPAY ==
--- NOTE | 2023-04-26 06:15 | DI.CT_ITS ---
Exam(s) CT ABDOMEN PELVIS WO/W EXAM: CT ABDOMEN PELVIS WO/W CLINICAL HISTORY: hematuria,r31.0. TECHNIQUE: Imaging Protocol: Axial computed tomography images with coronal and sagittal reformatted images were created and reviewed CONTRAST MATERIAL: Intravenous: Omnipaque-350 100cc Oral: None COMPARISON: CT ABD PELVIS WITH CONTRAST from 08/04/2017 FINDINGS: VISUALIZED LUNG BASES: No nodules nor pleural effusions evident. However, there is now a small amoun t of increased pericardial fluid posteriorly; none anteriorly. Heart size is upper normal. ABDOMEN: There is no ascites. LIVER: There are no focal hepatic lesions evident. No dilated intrahepatic ducts. GALLBLADDER/BILIARY: Gallbladder is again noted to be surgically absent. CBD is not dilated. PANCREAS: No evidence of pancreatic mass nor dilatation of the pancreatic duct. SPLEEN: Spleen is not enlarged. No obvious intrasplenic lesions. Splenic and portal veins are paten t. ADRENALS: There are no significant adrenal masses. KIDNEYS:No cysts evident. No solid renal masses. No calculi nor hydronephrosis.. Single ureter on each side is not dilated. There are no filling defects within the renal pelves and infundibulum. ABDOMINAL AORTA: Abdominal aorta is not enlarged. LYMPH NODES:There is no retroperitoneal nor paraaortic adenopathy. ABDOMINAL WALL: Again noted is a fat containing anterior left para umbilical hernia sac. Does not co ntain bowel loops. No adjacent bowel transition point. No bowel obstruction. GI: There is no evidence of bowel obstruction, free air, nor abscess. PELVIS: GI: No evidence of appendicitis.No evidence of sigmoid diverticulitis. LYMPH NODES: There is no intrapelvic nor inguinal adenopathy. REPRODUCTIVE: Enlarged prostate gland is again noted.. Measures 6 cm wide. There is no adjacent obt urator adenopathy. Seminal vesicles appear unremarkable. URINARY BLADDER: Urinary bladder wall is mildly uniformly thickened and appears trabeculated. No div erticuli. No distinct intraluminal mass evident.. The bladder base is indented by the enlarged pros power. OSSEOUS: No fractures and no significant osseous lesions. IMPRESSION: 1. No radiopaque calculi in the kidneys. No hydronephrosis nor hydroureter. No solid renal masses n or cysts evident. 2. Urinary bladder wall is diffusely thickened and mildly trabeculated. There is no distinct bladder wall mass. No bladder diverticuli noted. Solitary nondilated ureter on each side. 3. Enlarged prostate gland measuring 6 cm wide. No obturator adenopathy. No sclerotic bone lesions. 4. No evidence of acute inflammatory process in the abdomen and pelvis. No bowel obstruction. No fr ee air. No abscess. No ascites. Left para umbilical anterior abdominal wall fat only containing hernias again noted. The previously described epiploic appendagitis in left side of the pelvis has resolved. RADIATION DOSE DELIVERED: Total DLP DATA REPOSITORY: All CT scans at this facility are submitted to the National Radiology Data Registry (NRDR) Dose Index Registry (DIR) with the [employer] ([employer]). RADIATION OPTIMIZATION: All CT scans at this facility use at least one of these dose optimization te chniques: automated exposure control; mA and/or kV adjustment per patient size (includes targeted exa ms where dose is matched to clinical indication); or iterative reconstruction.
[2023-04-26] MEDS: Omnipaque 350 MG/ML 500 ML BTL-Imaging package 100 ML IJ (08:19)
[2023-04-26] MEDS: Normal Saline - Diluent 50 ML VIAL IJ ×2 (08:22→08:23)
== END ==
PROVIDERS: PCP Physician Assistant; Visit Provider Urology
DX: R31.0 Gross hematuria (principal); N20.1 Calculus of ureter
CPT/HCPCS: 74178

== ENCOUNTER → 2023-05-02 08:22 | Outpatient (BNVA) | payer MEDICARE, BC, SELFPAY | PROVIDERS: PCP Physician Assistant; Visit Provider Student in an Organized Health Care Education/Training Program | DX: Z47.1 Aftercare following joint replacement surgery (principal); Z96.651 Presence of right artificial knee joint ==

== ENCOUNTER → 2023-05-16 12:29 | Outpatient (BNVA) | payer MEDICARE, BC, SELFPAY | PROVIDERS: PCP Physician Assistant; Referring Provider Physician Assistant; Visit Provider Urology | DX: R31.0 Gross hematuria (principal); R97.20 Elevated prostate specific antigen [PSA] | CPT/HCPCS: 52000 ==

== ENCOUNTER → 2023-06-13 08:04 | Outpatient (BNVA) | payer MEDICARE, BC, SELFPAY | PROVIDERS: PCP Physician Assistant | DX: Z47.1 Aftercare following joint replacement surgery (principal); Z96.651 Presence of right artificial knee joint ==

== ENCOUNTER 2023-08-02 16:09 | Outpatient (REF) | payer MEDICARE, BC, SELFPAY ==
[2023-08-02 16:08] LABS: Hemoglobin A1C 5.7 % (<5.7)
[2023-08-02 16:20] LABS: ALT 26 U/L (16-63); AST 23 U/L (15-37); Albumin 3.7 g/dL (3.4-5.0); Alkaline Phosphatase 106 U/L (46-116); Anion Gap 9.8 mmol/L (3-11); BUN 16 mg/dL (7-18); Bilirubin, Total 0.9 mg/dL (0.2-1.0); CO2 28.2 mmol/L (21.0-32.0); Calcium 9.1 mg/dL (8.5-10.1); Calculated LDL 58 mg/dL (<100); Chloride 104 mmol/L (98-107); Cholesterol 121 mg/dL (<200); Glucose 104 mg/dL (74-106); HDL Cholesterol 49 mg/dL (40-60); Potassium 3.5 mmol/L (3.5-5.1); Sodium 142 mmol/L (136-145); Total Protein 7.2 g/dL (6.4-8.2); Triglyceride 73 mg/dL (<150)
[2023-08-02 16:35] LABS: CREATININE 1.2 mg/dL (0.70-1.30); Estimated GFR 65.46 (mL/min/1.73m2)
[2023-08-03 18:27] LABS: PSA, Screening 3.4 ng/mL (<=4.5)
== END 2023-08-02 16:10 | disposition home or self-care (01) ==
LOC: NCHCN 16:09
PROVIDERS: PCP Physician Assistant; Visit Provider Physician Assistant
DX: R73.03 Prediabetes (principal); I10 Essential (primary) hypertension; E78.5 Hyperlipidemia, unspecified; R97.20 Elevated prostate specific antigen [PSA]; Z12.5 Encounter for screening for malignant neoplasm of prostate
CPT/HCPCS: 80053; 80061; 84153; 83036

== ENCOUNTER 2024-02-09 12:33 | Outpatient (REF) | payer MEDICARE, BC, SELFPAY ==
--- OUTSIDE RECORDS SUMMARY | 2024-02-09 12:37 | XMS_ITS | Encounter Summary ---
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 Social History Tobacco Use Types Packs/Day Years Used Date Smoking Tobacco: Never Smokeless Tobacco: Never Alcohol Use Standard Drinks/Week Comments Not Currently 0 (1 standard drink = 0.6 oz pur e alcohol) occ Sex and Gender Information Value Date Recorded Sex Assigned at Not on file Gender Identity Not on file Sexual Orientation Not on file documented as of this encounter Progress Notes * Michael Irizarry MD - 03/16/2022 7:15 AM EST ASSESSMENT/PLAN: Visual Acuity Visual Acuity (Snellen - Linear) Right Left Dist cc 20/20 -2 20/100 -/+1 Dist ph cc NI Correction: Glasses Tonometry Tonometry (Tonopen, 7:41 AM) Right Left Pressure 15 22 1. Vitreous hemorrhage of left eye 02/14/2022 2. 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 Post-op instructions reviewed. Discussed that the combination of VH, NVD, NVEs with vein dilation (after avastin) are suspicious for RVO. 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
--- OUTSIDE RECORDS SUMMARY | 2024-02-09 12:37 | XMS_ITS | Encounter Summary ---
[place] [address] Care Team Providers Care Supervisor Dyer Name Role Phone Ambrose Luna Primary Care Provider [phone] Reason for Visit * Auth/Cert (Routine) Specialty Diagnoses / Procedures Referred By Contpepper t Referred To Contact Diagnoses Vitreous hemorrhage, left eye Vitreous hemorrhage, left eye Procedures PRO VITRECTOMY,FOCAL LASER RX RETINA VITRECTOMY, PARS PLANA, LASER (WRVU 13.2) Michael Irizarry MD [facility] Referral ID Status Reason Start Date Expiration Date Visits Re quested Visits Authorized [id number] 1 1 Encounter Details Date Type Department Care Team (Late st Contact Info) Description 03/15/2022 1:10 PM EST - 03/15/2022 3:01 PM EST Surgery [place] [address] Michael Irizarry MD VITRECTOMY, PARS PLANA, LASER (WRVU 13.2) Social History Tobacco Use Types Packs/Day Years Used Date Smoking Tobacco: Never Smokeless Tobacco: Never Tobacco Cessation:Counseling Given: Not Answered Alcohol Use Standard Drinks/Week Comments Not Currently 0 (1 standard drink = 0.6 oz pur e alcohol) occ Sex and Gender Information Value Date Recorded Sex Assigned at Not on file Gender Identity Not on file Sexual Orientation Not on file documented as of this encounter Last Filed Vital Signs Vital Sign Reading Time Taken Comments Blood Pressure 145/102 03/15/2022 3:00 PM EST Pulse 56 03/15/2022 2:52 PM EST Temperature 36.5 ??C (97.7 ??F) 03/15/2022 3:00 PM ES T Respiratory Rate 14 03/15/2022 3:00 PM EST Oxygen Saturation 95% 03/15/2022 3:00 PM EST Inhaled Oxygen Concentration - - Weight 147 kg (324 lb) 03/15/2022 11:49 AM EST Height 177.8 cm (5' 10) 03/15/2022 11:49 AM EST Body Mass Index 46.49 03/15/2022 11:49 AM EST documented in this encounter Discharge Instructions * Patient Instructions* Michael Irizarry MD - 03/15/2022 2:52 PM EST DROPS: Operated eye: Please keep the patch on the operated eye and do NOT use any eye drops. You will start them right after your post-op day 1 exam. Non- operated eye: Please continue all the eye drops (if any) as previously instructed POSITIONING: No special positioning WARNING SYMPTOMS People frequently feel mild-moderate soreness, blurriness or discomfort that improve within days. Eyelid edema and redness are also common for weeks. However, if you experience severe pain, severe blurriness, severe tenderness and/or light sensitivity please call the [facility] telephone center ([phone]) immediately and ask to be connected to the shot blast equipment operator forest economics professor. PAIN May use over the counter pain medications as needed: Tylenol 1000mg- up to 3 times/day as needed and/or ibuprofen 600mg up to 3 times/day as needed EYE SHIELD: Keep eye shield on the eye overnight. OTHERS It is ok to walk or do most of the simple daily activities at home (eg watching TV, reading with the other eye) Avoid high impact exercise or activities (e.g. weight lifting, running) for at least 1 week. Avoid lifting heavy weights for 1 week (i.e. Not more than 5-10 lbs) Avoid straining, coughing, squeezing etc as much as possible FLIGHTS: Do NOT take any flights until you discuss it with your doctor. There's severe risk for the eye if you're in areas of high altitude (flight, very tall mountains etc) documented in this encounter Medications at Time of Discharge Medication Sig Dispensed Refills Start Date End Date ezetimibe (Zetia) 10 mg Tablet 03/10/2022 hydroCHLOROthiazide (Hydrodiuril) 25 mg Tablet Take 25 mg by mouth daily. 01/04/2022 losartan (COZAAR) 100 mg Tablet 02/19/2022 Eliquis 5 mg Tablet Take 5 mg by mouth 2 times daily. 01/01/2022 simvastatin (ZOCOR) 80 mg tablet Take by mouth every other day. 03/26/2010 nitroGLYcerin (NITROSTAT) 0.4 mg SL tablet 0.4 MG = 1 Tablet(s), Sublingual, PRN 03/26/2010 dilTIAZem CD (Cardizem CD) 120 mg Capsule, Sust. Release 24 hr 02/19/2022 07/20/2022 documented as of this encounter H&P Notes * Michael Irizarry MD - 03/15/2022 12:31 PM EST Patient Name: Issac Espino Patient Age: 66 y.o. Birthdate: 1955 Admit date: 03/15/2022 Attending Physician: Michael Irizarry MD History and Physical Reviewed. No changes noted. Ok to proceed with eye surgery as planned. Michael Irizarry MD, PhD Apprentice Painter [employer] of Ophthalmology Diseases of the Retina and Vitreous documented in this encounter Miscellaneous Notes * Op Note - Michael Irizarry MD - 03/15/2022 1:31 PM EST [facility] Operative Note Patient Name: Issac Espino : [id number] MR#: [id number] Case Date: 03/15/2022 Surgeon: Surgeon(s) and Role: * Michael Irizarry MD - Primary Preoperative diagnosis: Vitreous hemorrhage, left eye Postoperative diagnosis: Vitreous hemorrhage, retinal vein occlusion, neovacularization of the discand elseswhere, left eye Procedure(s) (LRB): VITRECTOMY, PARS PLANA, LASER (WRVU 13.2) (Left) Anesthesia: MAC Estimated Blood Loss: 10-15ml Specimens removed during surgery: None Drains: * No LDAs found * Surgical Closure: Primary Closure - skin incision is completely closed without any wires, lucas, drains or other devices Disposition: regional anesthesia administered without incident Condition: doing well without problems (Please see the Surgical Encounter Summary for any Implant and Specimen details pertinent to this patient.) HPI/Surgical Indications: Blurred vision due to vitreous hemorrhage, left eye Procedure Description: DESCRIPTION OF PROCEDURE: The patient was brought to the operative suite at the [facility] where a time-out was done to confirm correct eye, correct patient, and correct procedure.The patient was sedated and peribulbar anesthesia was given using a 5ml mixture of 50:50 lidocaine 4% and marcaine 0.75%. The left eye was prepped and draped in the normal sterile fashion for intraocular surgery and a wire lid speculum was used throughout the case to retract the eyelids. Using the Dimitri 25-gauge vitrectomy system, trocars were placed in the inferotemporal, superotemporal and superonasal quadrants approximately 4 mm from the limbus. An infusion cannula was placed in the inferotemporal quadrant and its position was confirmed by direct visualization with the light pipe before it was turned on. Using the vitrector and the light pipe, the eye was entered and examination of the fundus revealed very dense vitreous hemorrhage. A 360 core vitrectomy was performed. Due to the ongoing bleeding core vitrectomy took more than 10-15 minutes while the IOP was on 60mmHg. The posterior hyaloid was detached. Careful vitrectomy of the vitreous base was performed while the medical services assistant was depressing the sclera. There were no retinal breaks. 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 Panretinal photocoagulation was performed 360 degrees (1362 spots, 200- 300mw, 200ms). Partial fluid -air exchange was performed. Intravitreal injection of Avastin 1.25 mg/0.05ml (Lot [id number] ER, [facility] [id number]) was administered in order to control of the neovacsularization During the procedure the cornea developed edema limiting the view and the epithelium had to be carefully removed using a crescent blade. Each of the trocars was removed sequentially, the sclerotomies were closed with 6-0 plain gut sutures and the eye was left adequately pressurized, air and watertight. A drop of vigamox and antibioticointment were applied on the eye followed by a patch and shield. The patient was awoken from sedation and brought to the recovery room in stable condition.They have follow up in the retina clinic in 1 day. Surgical Infection Prevention Bundle Used? No Attestation: Case Date: 03/15/2022 I performed this procedure without the involvement of a resident. Michael Irizarry MD 03/15/2022 documented in this encounter Plan of Treatment Not on file documented as of this encounter Procedures Procedure Name Priority Date/Time Associated Diagnosis Comments REMOVAL OF CORNEAL EPITHELIUM, W OR W/O, CHEMOCAUTERIZATION Routine 03/15/2022 2:50 PM EST Vitreous hemorrhage of left eye Removal Corneal Epithelium W/Wo Chemocauterization (32431) Yes 03/15/2022 12:54 PM EST Vitreous hemorrhage of left eye Vitrectomy, Focal Laser Rx Retina ([id number]) Yes 03/15/2022 12:54 PM EST Vitreous hemorrhage of left eye VITRECTOMY, PARS PLANA, LASER Routine 03/15/2022 11:36 AM EST Vitreous hemorrhage of left eye documented in this encounter Visit Diagnoses Diagnosis Vitreous hemorrhage of left eye Vitreous hemorrhage Vitreous hemorrhage of left eye Vitreous hemorrhage documented in this encounter Administered Medications Inactive Administered Medications - up to 3 most recent administrations Medication Order MAR Action Action Date Dose Rate Site acetaminophen (Tylenol) tablet 1,000 mg 1,000 mg, Oral, ONCE, 1 dose, On Tue03/15/22 at 1215, Administer with SIP of H2O only. Maximum dose of acetaminophen is 4,000 mg from all sources in 24 hours., Day of Surgery (Day of Procedure), Routine Given 03/15/2022 11:59 AM EST 1,000 mg atropine (Isopto Atropine) 1 % solution 1 drop 1 drop, Left Eye, EVERY 5 MIN, 3 doses, First dose on Tue03/15/22 at 1215, Last dose on Tue03/15/22 at 1225, Day of Surgery (Day of Procedure), Routine Given 03/15/2022 12:49 PM EST 1 drop Given 03/15/2022 12:46 PM EST 1 drop Given 03/15/2022 12:38 PM EST 1 drop balanced salt (BSS PLUS) irrigation solution ONCE PRN, Starting on Tue03/15/22 at 1334, Until Tue03/15/22 at 1738, Intra-Operative (Intra-Procedure), Routine Given 03/15/2022 1:34 PM EST 1 Bottle 19- Surgical Site balanced salt (BSS) irrigation solution ONCE PRN, Starting on Tue03/15/22 at 1335, Until Tue03/15/22 at 1738, Intra-Operative (Intra-Procedure), Routine Given 03/15/2022 1:35 PM EST 1 Bottle 19- Surgical Site BEVACizumab (Avastin) ophthalmic injection ONCE PRN, Starting on Tue03/15/22 at 1441, Until Tue03/15/22 at 1738, Intra-Operative (Intra-Procedure), Routine Given 03/15/2022 2:41 PM EST 1.25 mg BUpivacaine (pf) (Marcaine) (7.5 mg/mL) 0.75% injection ONCE PRN, Starting on Tue03/15/22 at 1310, Until Tue03/15/22 at 1738, Intra-Operative (Intra-Procedure), Routine Given 03/15/2022 1:10 PM EST 2.5 mLs 19- Surgical Site EPINEPHrine (Adrenalin (PF)) injection solution ONCE PRN, Starting on Tue03/15/22 at 1336, Until Tue03/15/22 at 1738, Intra-Operative (Intra-Procedure), Routine Given 03/15/2022 1:36 PM EST 0.5 mg 20-Other (document i n comment section) lactated ringers infusion 1,000 mL, at 100 mL/hr, Intravenous, CONTINUOUS, Starting on Tue03/15/22 at 1215, Until Tue03/15/22 at 1519, Day of Surgery (Day of Procedure) Restarted 03/15/2022 12:54 PM EST New Bag 03/15/2022 12:02 PM EST 1,000 mLs 100 mL/hr lidocaine (Xylocaine) (20 mg/mL) 2% injection ONCE PRN, Starting on Tue03/15/22 at 1310, Until Tue03/15/22 at 1738, Intra-Operative (Intra-Procedure), Routine Given 03/15/2022 1:10 PM EST 2.5 mLs 20-Other (document i n comment section) moxifloxacin (Vigamox) 0.5 % ophthalmic solution 1 drop 1 drop, Left Eye, EVERY 5 MIN, 3 doses, First dose on Tue03/15/22 at 1215, Last dose on Tue03/15/22 at 1225, Day of Surgery (Day of Procedure), Routine Given 03/15/2022 12:49 PM EST 1 drop Given 03/15/2022 12:45 PM EST 1 drop Given 03/15/2022 12:39 PM EST 1 drop moxifloxacin (Vigamox) 0.5 % ophthalmic solution ONCE PRN, Starting on Tue03/15/22 at 1337, Until Tue03/15/22 at 1738, Intra-Operative (Intra-Procedure), Routine Given 03/15/2022 1:37 PM EST 1 drop pcpcnybi-yqekcvoqd-odyULERHwqxuf (Dexacine) 3.5 mg/g-10,000 unit/g-0.1 % ophthalmic ointment ONCE PRN, Starting on Tue03/15/22 at 1337, Until Tue03/15/22 at 1738, Intra-Operative (Intra-Procedure), Routine Given 03/15/2022 1:37 PM EST 0.25 Tubes PHENYLephrine (Mydfrin) 2.5 % ophthalmic solution 1 drop 1 drop, Left Eye, EVERY 5 MIN, 3 doses, First dose on Tue03/15/22 at 1215, Last dose on Tue03/15/22 at 1225, Day of Surgery (Day of Procedure), Routine Given 03/15/2022 12:45 PM EST 1 drop Given 03/15/2022 12:39 PM EST 1 drop Given 03/15/2022 12:25 PM EST 1 drop povidone-iodine (Betadine Ophthalmic Prep) 5 % ophthalmic solution ONCE PRN, Starting on Tue03/15/22 at 1315, Until Tue03/15/22 at 1738, Intra-Operative (Intra-Procedure), Routine Given 03/15/2022 1:15 PM EST 30 mLs prednisoLONE acetate (Pred-Forte) 1 % suspension 1 drop 1 drop, Left Eye, ONCE, 1 dose, On Tue03/15/22 at 1215, Day of Surgery (Day of Procedure), Routine Given 03/15/2022 12:35 PM EST 1 drop tetracaine (PF) (Pontocaine) ophthalmic solution ONCE PRN, Starting on Tue03/15/22 at 1310, Until Tue03/15/22 at 1738, Intra-Operative (Intra-Procedure), Routine Given 03/15/2022 1:10 PM EST 1 drop documented in this encounter Active and Recently Administered Medications Times are shown in EST. Scheduled Medication Order 03/13/2022 03/14/2022 03/15/2022 acetaminophen (Tylenol) tablet 1,000 mg (COMPLETED) 1,000 mg, Oral, ONCE, 1 dose, On Tue03/15/22 at 1215, Administer with SIP of H2O only. Maximum dose of acetaminophen is 4,000 mg from all sources in 24 hours., Day of Surgery (Day of Procedure), Routine 1159 (Given - Provid er: Jennifer Escamilla RN) atropine (Isopto Atropine) 1 % solution 1 drop (COMPLETED) 1 drop, Left Eye, EVERY 5 MIN, 3 doses, First dose on Tue03/15/22 at 1215, Last dose on Tue03/15/22 at 1225, Day of Surgery (Day of Procedure), Routine 1238 (Given - Provid er: Jennifer Escamilla RN)1246 (Given - Provider: Jennifer Escamilla RN)1249 (Given - Provider: Jennifer Escamilla RN) moxifloxacin (Vigamox) 0.5 % ophthalmic solution 1 drop (COMPLETED) 1 drop, Left Eye, EVERY 5 MIN, 3 doses, First dose on Tue03/15/22 at 1215, Last dose on Tue03/15/22 at 1225, Day of Surgery (Day of Procedure), Routine 1239 (Given - Provid er: Jennifer Escamilla RN)1245 (Given - Provider: Jennifer Escamilla RN)1249 (Given - Provider: Jennifer Escamilla RN) PHENYLephrine (Mydfrin) 2.5 % ophthalmic solution 1 drop (COMPLETED) 1 drop, Left Eye, EVERY 5 MIN, 3 doses, First dose on Tue03/15/22 at 1215, Last dose on Tue03/15/22 at 1225, Day of Surgery (Day of Procedure), Routine 1225 (Given - Provid er: Jennifer Escamilla RN)1239 (Given - Provider: Jennifer Escamilla RN)1245 (Given - Provider: Jennifer Escamilla RN) prednisoLONE acetate (Pred-Forte) 1 % suspension 1 drop (COMPLETED) 1 drop, Left Eye, ONCE, 1 dose, On Tue03/15/22 at 1215, Day of Surgery (Day of Procedure), Routine 1235 (Given - Provid er: Jnenifer Escamilla RN) Continuous Medication Order 03/13/2022 03/14/2022 03/15/2022 lactated ringers infusion (CANCELED) 1,000 mL, at 100 mL/hr, Intravenous, CONTINUOUS, Starting on Tue03/15/22 at 1215, Until Tue03/15/22 at 1519, Day of Surgery (Day of Procedure) 1202 (New Bag - Prov ider: Jennifer Escamilla RN)1253 (Paused - Provider: Braden Salmeron CRNA - Comment: Switch to gravity)1254 (Restarted - Provider: Braden Salmeron CRNA)1313 (Anesthesia Volume Adjustment - Provider: Braden Salmeron CRNA) PRN Medication Order 03/13/2022 03/14/2022 03/15/2022 acetaminophen (Tylenol) tablet 1,000 mg 1,000 mg, Oral, EVERY 6 HOURS PRN, Starting on Tue03/15/22 at 1452, Until Tue03/15/22 at 1738, Pain, MODERATE pain (4-6), Should be used concomitantly if other analgesics are ordered. Maximum dose of acetaminophen is 4,000 mg from all sources in 24 hours., Routine balanced salt (BSS PLUS) irrigation solution (CANCELED) ONCE PRN, Starting on Tue03/15/22 at 1334, Until Tue03/15/22 at 1738, Intra-Operative (Intra-Procedure), Routine 1334 (Given - Provid er: Michael Irizarry MD) balanced salt (BSS) irrigation solution (CANCELED) ONCE PRN, Starting on Tue03/15/22 at 1335, Until Tue03/15/22 at 1738, Intra-Operative (Intra-Procedure), Routine 1335 (Given - Provid er: Michael Irizarry MD) BEVACizumab (Avastin) ophthalmic injection (CANCELED) ONCE PRN, Starting on Tue03/15/22 at 1441, Until Tue03/15/22 at 1738, Intra-Operative (Intra-Procedure), Routine 1441 (Given - Provid er: Michael Irizarry MD) BUpivacaine (pf) (Marcaine) (7.5 mg/mL) 0.75% injection (CANCELED) ONCE PRN, Starting on Tue03/15/22 at 1310, Until Tue03/15/22 at 1738, Intra-Operative (Intra-Procedure), Routine 1310 (Given - Provid er: Michael Irizarry MD - Comment: peribulbar block) EPINEPHrine (Adrenalin (PF)) injection solution (CANCELED) ONCE PRN, Starting on Tue03/15/22 at 1336, Until Tue03/15/22 at 1738, Intra-Operative (Intra-Procedure), Routine 1336 (Given - Provid er: Michael Irizarry MD - Comment: added to BSS Plus) lidocaine (Xylocaine) (20 mg/mL) 2% injection (CANCELED) ONCE PRN, Starting on Tue03/15/22 at 1310, Until Tue03/15/22 at 1738, Intra-Operative (Intra-Procedure), Routine 1310 (Given - Provid er: Michael Irizarry MD - Comment: peribulbar block) moxifloxacin (Vigamox) 0.5 % ophthalmic solution (CANCELED) ONCE PRN, Starting on Tue03/15/22 at 1337, Until Tue03/15/22 at 1738, Intra-Operative (Intra-Procedure), Routine 1337 (Given - Provid er: Shanta Castellon RN - Comment: post op) nzswqipq-ghlgnmerz-fvmWEXCXaekxc (Dexacine) 3.5 mg/g-10,000 unit/g-0.1 % ophthalmic ointment (CANCELED) ONCE PRN, Starting on Tue03/15/22 at 1337, Until Tue03/15/22 at 1738, Intra-Operative (Intra-Procedure), Routine 1337 (Given - Provid er: Shanta Castellon RN - Comment: post op) povidone-iodine (Betadine Ophthalmic Prep) 5 % ophthalmic solution (CANCELED) ONCE PRN, Starting on Tue03/15/22 at 1315, Until Tue03/15/22 at 1738, Intra-Operative (Intra-Procedure), Routine 1315 (Given - Provid er: Shanta Castellon RN - Comment: prep) tetracaine (PF) (Pontocaine) ophthalmic solution (CANCELED) ONCE PRN, Starting on Tue03/15/22 at 1310, Until Tue03/15/22 at 1738, Intra-Operative (Intra-Procedure), Routine 1310 (Given - Provid er: Shanta Castellon RN) documented in this encounter Care Teams Supervisor Dyer Relationship Specialty Start Date End Date Ambrose Luna PA [address] [place] [address] PCP - General Internal Medicine 03/12/22 documented as of this encounter
--- OUTSIDE RECORDS SUMMARY | 2024-02-09 12:37 | XMS_ITS | Encounter Summary ---
Author Organization [facility] [place] [address] Care Team Providers Care Photographic Equipment Technician Name Role Phone Ambrose Luna Primary Care Provider [phone] Reason for Visit * Reason Comments Blurred Vision Encounter Details Date Type Department Care Team (Late st Contact Info) Description 05/31/2023 8:00 AM EDT [place] [address] Gumaro Chavez MD [facility] [place] [address] Age-related nuclear cataract of both eyes; Macular pucker, left; Stable branch retinal vein occlusion of left eye- post PRP and PPV Social History Tobacco Use Types Packs/Day Years Used Date Smoking Tobacco: Never Smokeless Tobacco: Never Alcohol Use Standard Drinks/Week Comments Not Currently 0 (1 standard drink = 0.6 oz pur e alcohol) occ Sex and Gender Information Value Date Recorded Sex Assigned at Not on file Gender Identity Not on file Sexual Orientation Not on file documented as of this encounter Patient Instructions * Patient Instructions* Gumaro Chavez MD - 05/31/2023 8:00 AM EDT Medications: Use eye medications as instructed by Dr. Chavez during your appointment. For non eye medications not prescribed by the Ophthalmology (Eye) Clinic, please follow up with your PCP (primary care provider) for instructions. Dilation: Your eyes may have been dilated during your visit. Patients response to dilation varies and the duration of dilation can range from 4 to 24 hours. Be careful with visually demanding tasks until these effects have worn off. Driving: Wait until your vision has returned to normal baseline after your eye visit before driving. Changes in vision or eyes: Please call the eye clinic, , for any significant changes invision, new flashes or floaters or eye pain Eye safety is important: please use eye protection during any activities in which you could injury your eyes. documented in this encounter Progress Notes * Gumaro Chavez MD - 05/31/2023 8:00 AM EDT Images from the original note were not included. Encounter Diagnoses Name Primary? Age-related nuclear cataract of both eyes Macular pucker, left Stable branch retinal vein occlusion of left eye- post PRP and PPV Issac Espino is a 67 y.o. with the following ophthalmic problems: Cataract with Anisometropia OS>OD: elects to follow for now. Essentially has mono vision. MR given per request BRVO OS post PRP and PPV (VH) 2022 Follow 05/31/23 photo ERM OS: follow Plan: - as above - Follow up 2 m or as needed - Findings and concerns discussed with Issac and he expressed understanding. -Upon Return IOP MR if vision down by 2 lines compared to last visit BAT documented in this encounter Plan of Treatment Not on file documented as of this encounter Procedures Procedure Name Priority Date/Time Associated Diagnosis Comments FUNDUS PHOTOS - OU- BOTH EYES Routine 05/31/2023 10:16 AM EDT Stable branch retinal vein occlusion of left eye- post PRP and PPV OCT RETINA - OU - BOTH EYES Routine 05/31/2023 10:15 AM EDT Macular pucker, left documented in this encounter Results * Fundus Photos - OU - Both Eyes (05/31/2023 10:16 AM EDT) Anatomical Region Laterality Modality Other Narrative 05/31/2023 10:16 AM EDT OD: wnl OS: 360 PRP, no NV, scattered blot heme- rare. Gumaro Chavez MD OPHTHALMOLOGY SERVIC ES ORDERABLES * OCT Retina - OU - Both Eyes (05/31/2023 10:15 AM EDT) Anatomical Region Laterality Modality Other Narrative 05/31/2023 10:15 AM EDT Indication: Evaluation of possible macular pathology OD: nl foveal contour with center = 232 microns OS: abnl foveal contour with center = 255 microns Impression: Mild ERM OS Gumaro Chavez MD OPHTHALMOLOGY SERVIC ES ORDERABLES documented in this encounter Visit Diagnoses Diagnosis Age-related nuclear cataract of both eyes Senile nuclear sclerosis Macular pucker, left Stable branch retinal vein occlusion of left eye- post PRP and PPV documented in this encounter Care Teams Photographic Equipment Technician Relationship Specialty Start Date End Date Ambrose Luna PA [address] [place] [address] PCP - General Internal Medicine 03/12/22 documented as of this encounter
--- OUTSIDE RECORDS SUMMARY | 2024-02-09 12:37 | XMS_ITS | Encounter Summary ---
Author Organization [facility] [place] [address] Care Team Providers Care Receipt And Report Clerk Name Role Phone Ambrose Luna Primary Care Provider Encounter Details Date Type Department Care Team (Latest Contact Info) Description 03/16/2022 Travel Social History Tobacco Use Types Packs/Day Years Used Date Smoking Tobacco: Never Smokeless Tobacco: Never Alcohol Use Standard Drinks/Week Comments Not Currently 0 (1 standard drink = 0.6 oz pur e alcohol) occ Sex and Gender Information Value Date Recorded Sex Assigned at Not on file Gender Identity Not on file Sexual Orientation Not on file documented as of this encounter Plan of Treatment Not on file documented as of this encounter Visit Diagnoses Not on filedocumented in this encounter Care Teams Receipt And Report Clerk Relationship Specialty Start Date End Date Ambrose Luna PA [address] [place], [place] [id number] PCP - General Internal Medicine 03/12/22 documented as of this encounter
--- OUTSIDE RECORDS SUMMARY | 2024-02-09 12:37 | XMS_ITS | Encounter Summary ---
Author Organization [facility] [place] [address] Care Team Providers Care Wet Finisher Wool Name Role Phone Ambrose Luna Primary Care Provider [phone] Reason for Visit * Reason Comments Procedure Encounter Details Date Type Department Care Team (Latest Contact Info) Description 05/10/2023 9:00 AM EDT Procedure [place] [address] Gumaro Chavez MD [facility] [place] [address] Cataract, unspecified cataract type, unspecified laterality Social History Tobacco Use Types Packs/Day Years [...] as of this encounter Progress Notes * Gumaro Chavez MD - 05/10/2023 9:00 AM EDT POMs done today. documented in this encounter Plan of Treatment Not on file documented as of this encounter Procedures Procedure Name Priority Date/Time Associated Diagnosis Comments [id number]-[id number]-MMA CALC BY LASER INTERFEROMETRY - OU - BOTH EYES Routine 05/10/2023 9:46 AM EDT Cataract, unspecified cataract type, unspecified laterality documented in this encounter Results * CUDINBO-PPCMP-NUN Calc By Laser Interferometry - OU - Both Eyes (05/10/2023 9:46 AM EDT) Anatomical Region Laterality Modality Other Narrative 05/10/2023 9:46 AM EDT Table formatting from the original result was not included. Patient Hx Past Medical Hx ??Pt. ??has a past medical history of Allergy, Cataract, Herpes, Hyperlipidemia, and Hypertension. Past Ophth Surg Hx ??Ophth surgical history includes: left intravitreal injection, 03/15/2022 (Avastin done during PPV sx) and left retina procedures other, 03/15/2022 (PPV/Avastin - DM). Eye Meds ??apixaban, dilTIAZem, doxazosin, ezetimibe, hydroCHLOROthiazide, losartan, moxifloxacin, fwciohmg-ioqfpelke-qzaCMQPPoobxk, nitroGLYcerin, prednisoLONE acetate, sildenafiL, and simvastatin IOL Biometry - Initial (source: [facility]STAR) OD OS Date Performed 05/10/2023 ??9:22 AM 05/10/2023 ??9:22 AM ?? Target Refraction -0.25 -0.25 ?? Axial Length 23.99 (mm) 23.97 (mm) ?? Anterior Chamber Depth 3.51 (mm) 3.57 (mm) ?? Horizontal White to White 11.95 (mm) 11.92 (mm) ?? Formula Used ? K's 42.83, 42.99@043, 034 / 43.00, 43.10@133, 124 43.35, 43.38@007, 009 / 44.23, 44.53@097, 099 ? Add'l Comments/Discrepancies/Concerns: POM done by DEEDEE on 05/10/2023 S/p PPV + Avastin OS on 03/15/[address] OS [address] Dr[address] Irizarry IOL-Master results: AL - OD: 24.00 mm ?? OS: 23.96 mm ACD - OD: 3.52 mm ?? OS: 3.62 mm WTW - OD: 12.10 mm ?? OS: 12.20 mm Gumaro Chavez MD OPHTHALMOLOGY SERVIC ES ORDERABLES documented in this encounter Visit Diagnoses Diagnosis Cataract, unspecified cataract type, unspecified laterality documented in this encounter Care Teams Wet Finisher Wool Relationship Specialty Start Date End Date Ambrose Luna PA [address] [place] [address] PCP - General Internal Medicine 03/12/22 documented as of this encounter
--- OUTSIDE RECORDS SUMMARY | 2024-02-09 12:37 | XMS_ITS | Encounter Summary ---
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 Vitreous hemorrhage of left eye 2. 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 Branch retinal vein occlusion of left eye with retinal neovascularization Good anatomic and surgical outcome. Despite the PPV, the cataract has not yet progressed- the patient would not benefit from CE in the near future Postpone the existing 10/[address] 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
--- OUTSIDE RECORDS SUMMARY | 2024-02-09 12:37 | XMS_ITS | Clinical Summary ---
Author Organization [facility] Address [facility] [place] [address] Care Team Providers Care Taco Maker Name Role Phone Ambrose Luna Primary Care Provider [phone] Allergies Active Allergy Reactions Criticality Noted Date Comments Lansoprazole Hives 03/12/2022 Lsnegfz-Uqg-Lhr Reductase Inhibitors 03/12/2022 Muscle aches Medications Medication Sig Dispensed Refills Start Date End Date Status simvastatin (ZOCOR) 80 mg tablet Take by mouth every other day. 03/26/2010 Active nitroGLYcerin (NITROSTAT) 0.4 mg SL tablet 0.4 MG = 1 Tablet(s), Sublingual, PRN 03/26/2010 Active Eliquis 5 mg Tablet Take 5 mg by mouth 2 times daily. 01/01/2022 Active ezetimibe (Zetia) 10 mg Tablet 03/10/2022 Active hydroCHLOROthiazide (Hydrodiuril) 25 mg Tablet Take 25 mg by mouth daily. 01/04/2022 Active losartan (COZAAR) 100 mg Tablet 02/19/2022 Active doxazosin (Cardura) 2 mg tablet TAKE TWO TABLETS BY MOUTH EVERY NIGHT 06/25/2022 Active sildenafiL (Viagra) 100 mg tablet TAKE ONE-HALF TO ONE TABLET BY MOUTH APPROXIMATELY 30 MINUTES PRIOR TO INTERCOURSE 06/25/2022 Active dilTIAZem (Cardizem SR) 120 mg ER 12 hr capsule Take 120 mg by mouth daily. 06/17/2022 Active Active Problems Problem Noted Date Diagnosed Date Age-related nuclear cataract of both eyes 2023 Macular pucker, left 05/31/2023 Stable branch retinal vein o cclusion of left eye- post PRP and PPV 05/31/2023 DAVEY (obstructive sleep apnea) 01/15/2020 Permanent atrial fibrillation 01/15/2020 S/P coronary artery stent placement 01/15/2020 Coronary artery disease invo lving [place] coronary artery of [place] heart without angina pectoris 07/16/2019 Current use of intermediate school teacher anticoagulation 020 Dyslipidemia 07/16/2019 Family History Medical History Relation Comments Heart Disease Father Hypertension Father Cancer Mother Amblyopia Neg Hx Cataracts Neg Hx Diabetes Neg Hx Glaucoma Neg Hx Macular Degeneration Neg Hx Retinal Detachment Neg Hx Strabismus Neg Hx Thyroid Disease Neg Hx Relation Status Comments Father Mother Social History Tobacco Use Types Packs/Day Years Used Date Smoking Tobacco: Never Smokeless Tobacco: Never Tobacco Cessation:Counseling Given: Not Answered Alcohol Use Standard Drinks/Week Comments Not Currently 0 (1 standard drink = 0.6 oz pur e alcohol) occ Sex and Gender Information Value Date Recorded Sex Assigned at Not on file Gender Identity Not on file Sexual Orientation Not on file Last Filed Vital Signs Vital Sign Reading [...] Mass Index 46.49 03/15/2022 11:49 AM EST Plan of Treatment Health Maintenance Due Date Last Done Comments CT Colonography 1953 Colonoscopy 1953 Colorectal Cancer Screening 1955 FIT DNA 1953 FIT 1953 Sigmoidoscopy (10 year) with FIT yearly 1953 Sigmoidoscopy 1953 Hepatitis C Screening 10/27/1971 Pneumoccocal Vaccine: 65+ (1 of 2 - PCV) 1972 Tetanus/Diphtheria/Pertussis Vaccines (1 - Tdap) 1972 Zoster vaccine (1 of 2) 10/27/2003 Advance Directive 2008 Diabetes Screening (HgbA1C o r Glucose) 03/26/2013 03/26/2010, 03/25/2010, 03/25/2010 RSV Vaccine (1 - Risk 60-74 years 1-dose series) 2013 Covid-19 Vaccine ( - 2023-2 5 season) 2023 Influenza (Flu) vaccine (1 o f 1 - Influenza standard series) 10/16/2023 Lipid Screening Discontinued 03/25/2010 Procedures Procedure Name Priority Date/Time Associated Diagnosis Comments BASIC METABOLIC PANEL Routine 03/26/2010 8:42 AM EST LIPID PANEL (REFLEX DIRECT LDL) Routine 03/25/2010 8:00 PM EST from Last 3 Months or Most Recently Relevant to Health Maintenance Results * BASIC METABOLIC PANEL (NON-FASTING) (03/26/2010 8:42 AM EST) Glucose 88 <=199 mg/dL CERNER MILLENNIUM Comment:Diabetes: >=200 mg/d L plus symptoms Blood Urea Nitrogen 15 10 - 20 mg/dL CERNER MILLENNIUM Creatinine 0.90 0.80 - 1.50 mg/dL CERNER MILLENNIUM Sodium 139 135 - 145 mmol/L CERNER MILLENNIUM Potassium 3.8 3.5 - 5.0 mmol/L CERNER MILLENNIUM Comment: Please note: ??Patients with WBC >100,000 may have falsely elevated Potassium levels. ??For accurate Potassium quantification in these patients send serum separator tube (gold top) for subsequent determinations. ??Contact the Clinical Chemistry Laboratory if there are any questions. Chloride 105 98 - 107 mmol/L CERNER MILLENNIUM Carbon Dioxide 24 22 - 31 mmol/L CERNER MILLENNIUM Anion Gap 10 5 - 15 mmol/L CERNER MILLENNIUM Calcium 8.5 8.5 - 10.5 mg/dL CERNER MILLENNIUM Est Glomerular Filtration Rate >60 >=60 CERNER MILLENNIUM Comment: The National Kidney Disease Education Program (NKDEP) has recommended all laboratories report estimated GFR (eGFR) along with plasma creatinine measurements to assist you with recognition of early kidney disease. Caveats: ??Plasma creatinine should be at steady-state (unchanged within the past week). ??Patient age > = 18 years, and for Americans multiply eGFR by 1.2. At present, NKDEP does NOT recommend using the MDRD equation for drug dosing purposes and pharmacists should continue to use their current dosing methods. In addition, numerical eGFR values greater than 60 ml/min/1.73 square meters should be treated as > 60, and not an exact number due to greater inaccuracies at these higher values. Per NKDEP, they classify normal renal function as any GFR >60ml/min/1.73 square meters; chronic kidney disease when GFR <60, and renal failure when GFR <15. ??This calculation may not be valid for patients with atypical muscle mass (very lean or obese), acute renal failure, and in patients with diabetic kidney disease. References: http://nkdep.nih.gov/resources/NKDEP_Suggestn4Labs_0606_508.pdf http://www.kidney.org/professionals/kls/pdf/faq_gfr.pdf Blood specimen (specimen) 03/26/2010 8:42 AM EST 03/26/2010 9:06 AM EST Andrew Lockwood II, MD CHEMISTRY ORDER ANNA [facility] * (ABNORMAL) LIPID PANEL (03/25/2010 8:00 PM EST) [facility] Signature Cholesterol, Total 174 <=199 mg/dL [facility] Comment: Recommendations of the NCEP Adult Treatment Panel for the following risk cutoff thresholds for the [place] population: Desirable: <200 mg/dL Borderline High: 200-239 mg/dL High: > or = 240 mg/dL Triglyceride 104 <=149 mg/dL ZIA [facility] Comment: Reference Range: Normal triglycerides: ??<150 mg/dL Borderline high: ??150-199 mg/dL High: ??200-499 mg/dL Very high: ??>lo=037 mg/dL AMANDA 2001; 285(19):0223-0576 HDL Cholesterol 49 >=40 mg/dL ZIA [facility] Comment: Reference range: ??Low HDL: ?? < 40 mg/dL ??Normal: ?40-60 mg/dL ??Desirable: > 60 mg/dL AMANDA 2001; 285(19):3730-7678 LDL Cholesterol 104(H) <=99 mg/dL [facility]ERN[facility] MILLENNIUM Comment: Reference range: ?? Optimal: ?<100 mg/dL ?? Near Optimal/Above Optimal: ?? 100-129 mg/dL ?? Borderline high: ?130-159 mg/dL ?? High: ? 160-189 mg/dL ?? Very high: ?>kk=652 mg/dL AMANDA 2001: 285(19):6870-4650 Cholesterol/HDL Ratio 3.6 ratio [facility]ER MILLENNIUM Comment: A Cholesterol to HDL ratio below 4:1 is desirable. ??Studies suggest that increased CAD risk occurs at ratios above 5 for females and above 6 for men. ? [place] Heart Association ??(http://www.americanheart.org) ? Gem Int Med, 1994; 121:641 ? AM J Med, 1998; 105(1A):48S Fasting? Not Indicated ZIA MARIEIUM Blood specimen (specimen) 03/25/2010 8:00 PM EST 03/25/2010 8:09 PM EST Andrew Lockwood II, MD CHEMISTRY ORDER ANNA ZIA MUÑIZ from Last 3 Months or Most Recently Relevant to Health Maintenance Care Teams Taco Maker Relationship Specialty Start Date End Date Ambrose Luna PA [address] [place], [place] [id number] PCP - General Internal Medicine 03/12/22
--- OUTSIDE RECORDS SUMMARY | 2024-02-09 12:37 | XMS_ITS | Encounter Summary ---
Author Organization [facility] [place] [address] Care Team Providers Care Conservation Of Resources Commissioner Name Role Phone Ambrose Luna Primary Care Provider Encounter Details Date Type Department Care Team (Latest Contact Info) Description 03/20/2022 Travel Social History Tobacco Use Types Packs/Day [...] on filedocumented in this encounter Care Teams Conservation Of Resources Commissioner Relationship Specialty Start Date End Date Ambrose Luna PA [address] [place], [place] [id number] PCP - General Internal Medicine 03/12/22 documented as of this encounter
--- OUTSIDE RECORDS SUMMARY | 2024-02-09 12:37 | XMS_ITS | Encounter Summary ---
Author Organization [facility] [place] [address] Care Team Providers Care Application Processor Name Role Phone Ambrose Luna Primary Care Provider Encounter Details Date Type Department Care Team (Latest Contact Info) Description 07/13/2022 Travel Social History Tobacco Use Types Packs/Day [...] on filedocumented in this encounter Care Teams Application Processor Relationship Specialty Start Date End Date Ambrose Luna PA [address] [place], [place] [id number] PCP - General Internal Medicine 03/12/22 documented as of this encounter
--- OUTSIDE RECORDS SUMMARY | 2024-02-09 12:37 | XMS_ITS | Encounter Summary ---
Author Organization [facility] [place] [address] Care Team Providers Care Medical Program Specialist Name Role Phone Ambrose Luna Primary Care Provider [phone] Encounter Details Date Type Department Care Team (Latest Contact Info) Description 05/09/2023 Travel Social History Tobacco Use Types Packs/Day [...] on filedocumented in this encounter Care Teams Medical Program Specialist Relationship Specialty Start Date End Date Ambrose Luna PA [address] [place], [place] [phone] PCP - General Internal Medicine 03/12/22 documented as of this encounter
--- OUTSIDE RECORDS SUMMARY | 2024-02-09 12:37 | XMS_ITS | Encounter Summary ---
Author Organization [facility] [place] [address] Care Team Providers Care Trimming Assembler Name Role Phone Ambrose Luna Primary Care Provider [phone] Reason for Visit * Reason Onset Date Comments Bumped Appointment 06/22/2022 Encounter Details Date Type Department Care Team (Late st Contact Info) Description 06/22/2022 [place] [phone] Michael Irizarry MD Bumped Appointment Social History Tobacco Use Types Packs/Day Years Used Date Smoking Tobacco: Never Smokeless Tobacco: Never Alcohol Use Standard Drinks/Week Comments Not Currently 0 (1 standard drink = 0.6 oz pur e alcohol) occ Sex and Gender Information Value Date Recorded Sex Assigned at Not on file Gender Identity Not on file Sexual Orientation Not on file documented as of this encounter Miscellaneous Notes * Telephone Encounter - Paty Barksdale - 06/29/2022 4:36 PM EDT Scheduled * Telephone Encounter - Makayla Haddad - 06/29/2022 3:29 PM EDT LMx2 for pt to let him know 08/27 appt with DM has been canceled and that [place] [facility] [place] of [place] and [place] out of [place]. Follow up with [facility] in 4 months for DFE, OCT OU Bumped x1 08/27 Let pt know in msg that we can reschedule his appt with DM to see him before he leaves in June or July and to call back to reschedule if he would like to see DM before he leaves. Letter sent. * Telephone Encounter - Makayla Haddad - 06/22/2022 8:23 AM EDT LM for pt to let him know appt on 08/27 w/ DM has been canceled and calling to reschedule: Follow up with [facility] in 4 months for DFE, OCT OU bumped x1 08/27 Please let pt know that DM is leaving [facility] and [place] out of state. Okay to reschedule appt for June or July to see DM prior to his leaving [facility]. Please ask Makayla for scheduling options if needed. documented in this encounter Plan of Treatment Not on file documented as of this encounter Visit Diagnoses Not on filedocumented in this encounter Care Teams Trimming Assembler Relationship Specialty Start Date End Date Ambrose Luna PA [address] [place] [address] PCP - General Internal Medicine 03/12/22 documented as of this encounter
--- OUTSIDE RECORDS SUMMARY | 2024-02-09 12:37 | XMS_ITS | Encounter Summary ---
Author Organization [facility] [place] [address] Care Team Providers Care Tunneller Name Role Phone Ambrose Luna Primary Care Provider Encounter Details Date Type Department Care Team (Latest Contact Info) Description 03/26/2022 Travel Social History Tobacco Use Types Packs/Day [...] on filedocumented in this encounter Care Teams Tunneller Relationship Specialty Start Date End Date Ambrose Luna PA [address] [place], [place] [phone] PCP - General Internal Medicine 03/12/22 documented as of this encounter
--- OUTSIDE RECORDS SUMMARY | 2024-02-09 12:37 | XMS_ITS | Encounter Summary ---
Author Organization [facility] Address [facility] [place] [address] Care Team Providers Care Asphalt Spreader Operator Name Role Phone Ambrose Luna Primary Care Provider [phone] Reason for Visit * Reason Comments Post Op s/p PPV / Avastin OS done 03/15/2022 Encounter Details Date Type Department Care Team (Late st Contact Info) Description 03/26/2022 2:00 PM EST [place] [address] Travis Rodriguez MD 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 Vitreous hemorrhage of left eye s/p PPV 03/15/22 2. 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 ORELLANA I have seen the patient in person and reviewed the history and I agree with the details as written.The assessment and plan were formulated in discussion with me and I agree with them as documented. 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
--- OUTSIDE RECORDS SUMMARY | 2024-02-09 12:37 | XMS_ITS | Encounter Summary ---
Author Organization [facility] [place] [address] Care Team Providers Care Elevator Erector Name Role Phone Ambrose Luna Primary Care Provider [phone] Reason for Visit * Reason Comments Post Op s/p PPV / Avastin OS done 03/15/2022 for VH OS 02/14/2022 Encounter Details Date Type Department Care Team (Late st Contact Info) Description 04/20/2022 12:15 PM EST Office [place] [address] Michael Irizarry MD Vitreous hemorrhage of left eye s/p PPV [...] as of this encounter Progress Notes * Freddy Person MD - 04/20/2022 12:15 PM EST I also saw this patient with Dr. Irizarry. See his note for our joint assessment and plan. Briefly, 66 M doing well s/p PPV with endolaser and avastin for VH from NVD/NVE. Regressed, good laser, VH cleared. IOP good. -- Freddy Person MD PGY-3, Ophthalmology Resident #[id number] 04/20/2022 1:20 PM I saw the patient with the following level of supervision from the attending: Direct from Dr. Irizarry. * Michael Irizarry MD - 04/20/2022 12:15 PM EST ASSESSMENT/PLAN: 1. Vitreous hemorrhage of left eye s/p PPV 03/15/22 2. 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 Discussed the relatively slow and oftentimes incomplete visual recovery after successful surgery for this condition. The cataract is slowly progressing - the patient will benefit from CE over the next year Refer for cataract evaluation in 6-9 months Follow up with Retina in 4 months for DFE, OCT OU I, Luiz Gaviria, have performed the documentation for this encounter in the presence of, and acting asa scribe for Michael Irizarry MD PhD. I performed the services which were documented by the scribe, and I agree with the accuracy of the documentation in this encounter. Michael Irizarry MD PhD. 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
--- OUTSIDE RECORDS SUMMARY | 2024-02-09 12:37 | XMS_ITS | Encounter Summary ---
Author Organization [facility] [place] [address] Care Team Providers Care Reflow Operator Name Role Phone Ambrose Luna Primary Care Provider [phone] Encounter Details Date Type Department Care Team (Latest Contact Info) Description 04/20/2022 Travel Social History Tobacco Use Types Packs/Day [...] on filedocumented in this encounter Care Teams Reflow Operator Relationship Specialty Start Date End Date Ambrose Luna PA [address] [place], [place] [phone] PCP - General Internal Medicine 03/12/22 documented as of this encounter
--- OUTSIDE RECORDS SUMMARY | 2024-02-09 12:37 | XMS_ITS | Encounter Summary ---
Author Organization [facility] [place] [address] Care Team Providers Care Gravel Inspector Name Role Phone Ambrose Luna Primary Care Provider [phone] Encounter Details Date Type Department Care Team (Latest Contact Info) Description 07/20/2022 Travel Social History Tobacco Use Types Packs/Day [...] on filedocumented in this encounter Care Teams Gravel Inspector Relationship Specialty Start Date End Date Ambrose Luna PA [address] [place], [place] [phone] PCP - General Internal Medicine 03/12/22 documented as of this encounter
--- OUTSIDE RECORDS SUMMARY | 2024-02-09 12:37 | XMS_ITS | Encounter Summary ---
Author Organization [facility] [place] [address] Care Team Providers Care Grab Driver Name Role Phone Ambrose Luna Primary Care Provider Encounter Details Date Type Department Care Team (Latest Contact Info) Description 05/31/2023 Travel Social History Tobacco Use Types Packs/Day [...] on filedocumented in this encounter Care Teams Grab Driver Relationship Specialty Start Date End Date Ambrose Luna PA [address] [place], [place] [phone] PCP - General Internal Medicine 03/12/22 documented as of this encounter
--- OUTSIDE RECORDS SUMMARY | 2024-02-09 12:38 | XMS_ITS | Encounter Summary ---
[facility] [place] [address] Care Team Providers Care Jammer Hooker Name Role Phone Unknown Primary Care Provider Unavailabl e Encounter Details Date Type Department Care Team (Latest Contact Info) Description 02/19/2022 Travel Social History Tobacco Use Types Packs/Day Years Used Date Smoking Tobacco: Never Assessed Sex and Gender Information Value Date Recorded Sex Assigned at Not on file Gender Identity Not on file Sexual Orientation Not on file documented as of this encounter Plan of Treatment Not on file documented as of this encounter Visit Diagnoses Not on filedocumented in this encounter Care Teams Jammer Hooker Relationship Specialty Start Date End Date Unknown None PCP - General 02/14/19 03/11/22 documented as of this encounter
--- OUTSIDE RECORDS SUMMARY | 2024-02-09 12:38 | XMS_ITS | Encounter Summary ---
Author Organization [facility] Address [address] [place] [address] Care Team Providers Care Cuff Presser Name Role Phone Sudhakar Fitzgerald MD Unavailable [phone] Ambrose Luna [facility] Primary Care Provider [phone] Encounter Details Date Type Department Care Team (Late st Contact Info) Description 03/29/2023 Lab Requisition [facility] Pathology & Laboratory Medicine - [address] [id number] Outr Resulting Lab, Provider Social History Tobacco Use Types Packs/Day Years Used Date Smoking Tobacco: Never Smokeless Tobacco: Never Interpersonal Safety Answer Date Record ed Physically Hurt Never 09/16/2019 Verbally Threaten Not on file 09/16/2019 Sex and Gender Information Value Date Recorded Sex Assigned at Not on file Legal Sex Male 18:30 EST Gender Identity Male 01/12/2021 10:53 EST Sexual Orientation Not on file documented as of this encounter Functional Status * Because of a physical, mental, or emotional condition, does this person have difficulty doing errands alone such as visiting a doctor's office or shopping? Answer Date of Assessment Author No 07/16/2019 11:13 EDT documented as of this encounter Mental Status * Because of a physical, mental, or emotional condition, does this person have serious difficulty concentrating, remembering, or making decisions? Answer Entry Date Author No 07/16/2019 11:13 EDT documented in this encounter Plan of Treatment Upcoming Encounters Date Type Department Care Team (Late st Contact Info) Description 03/14/2024 8:15 EST Office Visit [facility] [address] [place] [address] [place] [address] Sudhakar Fitzgerald MD [address] [place] [address] documented as of this encounter Procedures Procedure Name Priority Date/Time Associated Diagnosis Comments PSA TOTAL, DIAGNOSTIC Routine 03/29/2023 8:31 EST documented in this encounter Results * (ABNORMAL) PSA TOTAL, DIAGNOSTIC (03/29/2023 8:31 EST) PSA 4.8(H) <=4.5 ng/mL 03/29/2023 23:13 EST [facility] Blood VENOUS BLOOD / Unknown 03/29/2023 8:31 EST 03/29/2023 21:36 EST Narrative [facility] - 03/29/2023 23:13 EST NOTE: Serum PSA concentration should not be interpreted as absolute evidence for the presence or absence of malignant disease. Assayed on Siemens ADVIA Centaur XPT using chemiluminescent technology.??Values obtained by using different assay methods cannot be used interchangeably. us Provider Outr Resulting Lab CHEMISTRY & BLOOD GA S ORDERABLES Final Result [facility] [address] [place] [address] documented in this encounter Visit Diagnoses Not on filedocumented in this encounter Care Teams Cuff Presser Relationship Specialty Start Date End Date Ambrose Luna RPA [address] [place] [id number] PCP - General Family Medicine - Primary Care 02/15/20 Sudhakar Fitzgerald MD [address] [place] [address] Cardiovascular Disease 02/25/21 documented as of this encounter
--- OUTSIDE RECORDS SUMMARY | 2024-02-09 12:38 | XMS_ITS | Encounter Summary ---
Author Organization [facility] Address [address] [place] [address] Care Team Providers Care Outcome Analyst Name Role Phone Sudhakar Fitzgerald MD Unavailable [phone] Ambrose Luna [facility] Primary Care Provider + [phone] Encounter Details Date Type Department Care Team (Late st Contact Info) Description 05/12/2020 Lab Requisition [facility] Pathology & Laboratory Medicine - [address] [id number] Outr Resulting Lab, Provider Social History Tobacco [...] Info) Description 03/14/2024 8:15 EST Office Visit [facility] [address] [place] [address] [place] [id number] Sudhakar Fitzgerald MD [address] [place] [address] documented as of this encounter Procedures Procedure Name Priority Date/Time Associated Diagnosis Comments HEPATITIS C AB W REFLEX TO HCV RNA BY PCR Routine 05/12/2020 10:40 EDT documented in this encounter Results * HEPATITIS C AB W REFLEX TO HCV RNA BY PCR (05/12/2020 10:40 EDT) Hep C Antibody Negative Negative 05/13/2020 10:03 EDT [facility] Blood VENOUS BLOOD / Unknown 05/12/2020 10:40 EDT 05/12/2020 21:14 EDT us Provider Outr Resulting Lab CHEMISTRY & BLOOD GA S ORDERABLES Final Result [facility] [address] [place] [address] documented in this encounter Visit Diagnoses Not on filedocumented in this encounter Care Teams Outcome Analyst Relationship Specialty Start Date End Date Ambrose Luna RPA [address] [place] [id number] PCP - General Family Medicine - Primary Care 02/15/20 Sudhakar Fitzgerald MD [address] [place], [place] [address]A [address] [place] [address] Cardiovascular Disease 02/25/21 documented as of this encounter
--- OUTSIDE RECORDS SUMMARY | 2024-02-09 12:38 | XMS_ITS | Encounter Summary ---
Author Organization [facility] [place] [address] Care Team Providers Care Coin Teller Name Role Phone Unknown Primary Care Provider Unavailabl e Encounter Details Date Type Department Care Team (Late st Contact Info) Description 03/03/2022 [place] [address] Michael Irizarry MD Social History Tobacco Use Types Packs/Day Years Used Date Smoking Tobacco: Never Assessed Sex and Gender Information Value Date Recorded Sex Assigned at Not on file Gender Identity Not on file Sexual Orientation Not on file documented as of this encounter Miscellaneous Notes * Telephone Encounter - Samy Nunn - 03/03/2022 9:12 AM EST Pt scheduled * Telephone Encounter - Makayla Haddad - 03/03/2022 8:48 AM EST Called pt to schedule next appt with DM: Follow up 2wk for DFE OS, B-scan OS No answer, unable to leave vm - vm full. documented in this encounter Plan of Treatment Not on file documented as of this encounter Visit Diagnoses Not on filedocumented in this encounter Care Teams Coin Teller Relationship Specialty Start Date End Date Unknown None PCP - General 02/14/19 03/11/22 documented as of this encounter
--- OUTSIDE RECORDS SUMMARY | 2024-02-09 12:38 | XMS_ITS | Encounter Summary ---
[facility] Organization [facility] [place] [address] Care Team Providers Care Overhead Foreman Name Role Phone Emery Goel MD Primary Care Provider [phone] Encounter Details Date Type Department Care Team (Late st Contact Info) Description 03/25/2010 1:18 PM EST - 03/26/2010 1:20 PM EST Hospital Encounter Intermediate [place] [id number] Andrew Lockwood II, MD Discharge Disposition: Home Social History Tobacco Use Types Packs/Day Years Used Date Smoking Tobacco: Never Assessed Sex and Gender Information Value Date Recorded Sex Assigned at Not on file Gender Identity Not on file Sexual Orientation Not on file documented as of this encounter Medications at Time of Discharge Medication Sig Dispensed Refills Start Date End Date simvastatin (ZOCOR) 80 mg tablet Take by mouth every other day. 03/26/2010 nitroGLYcerin (NITROSTAT) 0.4 mg SL tablet 0.4 MG = 1 Tablet(s), Sublingual, PRN 03/26/2010 clopidogrel (PLAVIX) 75 mg tablet 75 MG = 1 Tablet(s), PO, Once daily 03/26/2010 03/12/2022 metoprolol succinate (TOPROL-XL) 50 mg 24 hr tablet 50 MG = 1 Tablet(s), PO, Once daily 03/26/2010 03/12/2022 lisinopril (PRINIVIL;ZESTRIL) 20 mg tablet 20 MG = 1 Tablet(s), PO, Once daily 03/26/2010 03/12/2022 aspirin 325 mg tablet 03/25/20102022 documented as of this encounter Plan of Treatment Not on file documented as of this encounter Procedures Procedure Name Priority Date/Time Associated Diagnosis Comments DIFFERENTIAL, AUTOMATED Routine 03/26/19 11 8:42 AM EST CARDIAC ENZYMES ([facility]) Routine 03/26/2010 8:42 AM EST PROTHROMBIN TIME Routine 03/26/2010 8:42 AM EST CBC (WITH DIFF) Routine 03/26/2010 8:42 AM EST ALANINE AMINOTRANSFERASE Routine 011 8:42 AM EST ASPARTATE AMINOTRANSFERASE Routine 03/26/2010 8:42 AM EST PHOSPHORUS Routine 03/26/2010 8:42 AM EST ALKALINE PHOSPHATASE Routine 03/26/2010 8:42 AM EST MAGNESIUM Routine 03/26/2010 8:42 AM EST BASIC METABOLIC PANEL Routine 03/26/2010 8:42 AM EST CARDIAC ENZYMES ([facility]) Routine 03/26/2010 12:25 AM EST DIFFERENTIAL, AUTOMATED Routine 03/25/19 11 8:00 PM EST APTT STAT 03/25/2010 8:00 PM EST PROTHROMBIN TIME Routine 03/25/2010 8:00 PM EST CBC (WITH DIFF) Routine 03/25/2010 8:00 PM EST TSH Routine 03/25/2010 8:00 PM EST PHOSPHORUS Routine 03/25/2010 8:00 PM EST PRO-BRAIN NATRIURETIC PEPTIDE Routine 03/25/2010 8:00 PM EST MAGNESIUM Routine 03/25/2010 8:00 PM EST HEMOGLOBIN A1C Routine 03/25/2010 8:00 PM EST HEPATIC FUNCTION PANEL Routine 1 8:00 PM EST LIPID PANEL (REFLEX DIRECT LDL) Routine 03/25/2010 8:00 PM EST BASIC METABOLIC PANEL Routine 03/25/2010 8:00 PM EST CARDIAC ENZYMES ([facility]P) Routine 03/25/2010 5:15 PM EST documented in this encounter Results * (ABNORMAL) REFLEX LAB-A-DIFF (03/26/2010 8:42 AM EST) Neutrophil % 73.9(H) 34.0 - 71.0 % CERNER MILLENNIUM Neutrophil Absolute 7.17(H) 1.50 - 6.30 x10(3)/mc L CERNER MILLENNIUM Lymph % 18.0(L) 19.0 - 53.0 % CERNER MILLENNIUM Lymphocytes Abs 1.8 1.0 - 3.6 x10(3)/mc L CERNER MILLENNIUM Monocyte % 6.6 4.0 - 13.0 % CERNER MILLENNIUM Monocyte Abs 0.6 0.2 - 1.0 x10(3)/mc L CERNER MILLENNIUM Eos % 0.9 0.0 - 7.0 % CERNER MILLENNIUM Eosinophils Abs 0.1 0.0 - 0.5 x10(3)/mc L CERNER MILLENNIUM Basophil % 0.3 0.0 - 2.0 % CERNER MILLENNIUM Baso Absolute 0.0 0.0 - 0.2 x10(3)/mc L CERNER MILLENNIUM Immature Gran % 0.30 0.00 - 0.66 % CERNER MILLENNIUM Comment: Immature granulocytes(IG's)percentage and absolute count will include metamyelocytes, myelocytes, and promyelocytes. Blood smears from CBCs yielding IG's will be scanned manually for concordance. If this scan disagrees with the automated IG or if promyelocytes are noted, a manual differential will be performed. Immature Gran Absolute 0.03 0.00 - 0.05 x10(3)/mc L CERNER MILLENNIUM Blood specimen (specimen) 03/26/2010 8:42 AM EST 03/26/2010 9:06 AM EST Andrew Lockwood II, MD [facility] Performing Organization Address [facility] de Phone Number CERMUNDO PARKENNIUM * (ABNORMAL) PROTIME-INR (03/26/2010 8:42 AM EST) Prothrombin Time 14.8(H) 12.3 - 14.7 sec CERNER MILLENNIUM Comment: [facility] Transfusion Committee Guidelines: INR less than 2.0, PTT less than OR equal to 43.5 seconds, or Fibrinogen greater than or equal to 100 mg/dl indicate adequate procoagulant activity for hemostasis in patients without underlying bleeding disorders. International Normalization Ratio 1.1 0.9 - 1.1 CERNER MILLENNIUM Blood specimen (specimen) 03/26/2010 8:42 AM EST 03/26/2010 9:06 AM EST Andrew Lockwood II, MD HEMATOLOGY ORDCelina ARROYO Performing Organization Address [facility] de Phone Number CERMUNDO PARKENNIUM * (ABNORMAL) CBC (03/26/2010 8:42 AM EST) White Blood Cell 9.7 4.0 - 10.0 x10(3)/mc L CERNER MILLENNIUM Red Blood Cell 5.52 4.63 - 6.08 x10(6)/mc L CERNER MILLENNIUM Hemoglobin 15.5 13.7 - 17.5 gm/dL CERNER MILLENNIUM Hematocrit 46.6 40.0 - 51.0 % CERNER MILLENNIUM Mean Cell Volume 84.4 79.0 - 92.0 fL CERNER MILLENNIUM Mean Cell Hemoglobin 28.1 25.6 - 32.2 pg CERNER MILLENNIUM Mean Cell Hemoglobin Concentration 33.3 32.0 - 36.5 gm/dL CERNER MILLENNIUM Platelet 260 145 - 370 x10(3)/mc L CERNER MILLENNIUM RDW Standard Deviation 48.4(H) 35.0 - 46.0 fL CERNER MILLENNIUM RDW coefficient of variation 15.7(H) 10.9 - 14.4 % CERNER MILLENNIUM Mean Platelet Volume 11.5 9.0 - 12.0 fL CERNER MILLENNIUM Blood specimen (specimen) 03/26/2010 8:42 AM EST 03/26/2010 9:06 AM EST Andrew Lockwood II, MD HEMATOLOGY [facility] Performing Organization Address [facility] Co de Phone Number ZIA MUÑIZ * (ABNORMAL) CARDIAC ENZYME PANEL (03/26/2010 8:42 AM EST) Troponin-T 0.06(H) <=0.03 ng/mL CERNER MILLENNIUM Comment: 0.03 ng/mL: ??Represents the 99th percentile upper reference limit for normals >0.03 ng/mL: ??Elevated cardiac troponin T level indicative of myocardial damage Diagnosis of acute, evolving or recent AR requires a typical rise and gradual fall of cTnT with at least ONE of the following: a) ??Ischemic symptoms b) ??Development of pathologic Q waves on the ECG c) ??ECG changes indicative of ischemia (S-T segment elevation/depression) d) ??Coronary artery intervention Serial bloods should be obtained for testing on admission, at 6-9h and again at 12-24h if earlier samples are negative and the clinical index of suspicion is high. Reference [Myocardial infarction redefined a consensus document of the Joint Society of Cardiology/[place] [employer] Committee for the redefinition of myocardial infarction. Journal of the [place] College [employer]iology 2000; 36: 959-969] Creatine Kinase 74 0 - 200 unit/L CERNER MILLENNIUM Blood specimen (specimen) 03/26/2010 8:42 AM EST 03/26/2010 9:06 AM EST Andrew Lockwood II, MD CHEMISTRY ORDER ANNA Performing Organization Address [facility]/State/ZIP Co de Phone Number CERMUNDO PARKENNIUM * ALANINE AMINOTRANSFERASE (03/26/2010 8:42 AM EST) Alanine Aminotransferase 17 0 - 55 unit/L CERNER MILLENNIUM Blood specimen (specimen) 03/26/2010 8:42 AM EST 03/26/2010 9:06 AM EST Andrew Lockwood II, MD CHEMISTRY ORDER ANNA CERMUNDO MARIEIUM * ASPARTATE AMINOTRANSFERASE (03/26/2010 8:42 AM EST) Aspartate Aminotransferase 16 0 - 39 unit/L CERNER MILLENNIUM Blood specimen (specimen) 03/26/2010 8:42 AM EST 03/26/2010 9:06 AM EST Andrew Lockwood II, MD CHEMISTRY ORDER ANNA Performing Organization Address [facility] Co de Phone Number CERMUNDO MARIEIUM * ALKALINE PHOSPHATASE (03/26/2010 8:42 AM EST) Alkaline Phosphatase 94 40 - 120 unit/L CERNER VIVIANENNIUM Blood specimen (specimen) 03/26/2010 8:42 AM EST 03/26/2010 9:06 AM EST Andrew Lockwood II, MD CHEMISTRY ORDER ANNA CERMUNDO MARIEIUM * MAGNESIUM (03/26/2010 8:42 AM EST) Magnesium 0.96 0.69 - 1.07 mmol/L CERNER VIVIANENNIUM Blood specimen (specimen) 03/26/2010 8:42 AM EST 03/26/2010 9:06 AM EST Andrew Lockwood II, MD CHEMISTRY ORDER ANNA CERNER VIVIANENNIUM * PHOSPHORUS (03/26/2010 8:42 AM EST) Phosphorus 2.7 2.5 - 4.5 mg/dL CERNER MILLENNIUM Blood specimen (specimen) 03/26/2010 8:42 AM EST 03/26/2010 9:06 AM EST Andrew Lockwood II, MD CHEMISTRY ORDER ANNA CERNER MILLENNIUM * BASIC METABOLIC PANEL (NON-FASTING) (03/26/2010 8:42 [...] Lockwood II, MD CHEMISTRY ORDER ANNA ZIA [employer] * (ABNORMAL) CARDIAC ENZYME PANEL (03/26/2010 12:25 AM EST) Troponin-T 0.04(H) <=0.03 ng/mL CERNER MILLENNIUM Comment: 0.03 ng/mL: ??Represents the 99th percentile upper reference limit for normals >0.03 ng/mL: ??Elevated cardiac troponin T level indicative of myocardial damage Diagnosis of acute, evolving or recent AR requires a typical rise and gradual fall of cTnT with at least ONE of the following: a) ??Ischemic symptoms b) ??Development of pathologic Q waves on the ECG c) ??ECG changes indicative of ischemia (S-T segment elevation/depression) d) ??Coronary artery intervention Serial bloods should be obtained for testing on admission, at 6-9h and again at 12-24h if earlier samples are negative and the clinical index of suspicion is high. Reference [Myocardial infarction redefined a consensus document of the Joint Society of Cardiology/[place] [employer]iology Committee for the redefinition of myocardial infarction. Journal of the [place] [employer]iology 2000; 36: 959-969] Creatine Kinase 66 0 - 200 unit/L CERNER PersistIQENNIUM Blood specimen (specimen) 03/26/2010 12:25 AM EST 03/26/2010 12:33 AM EST Andrew Lockwood II, MD CHEMISTRY ORDER ANNA CERNER MILLENNIUM * (ABNORMAL) REFLEX LAB-A-DIFF (03/25/2010 8:00 PM EST) Neutrophil % 75.1(H) 34.0 - 71.0 % CERNER MILLENNIUM Neutrophil Absolute 6.47(H) 1.50 - 6.30 x10(3)/mc L CERNER MILLENNIUM Lymph % 17.6(L) 19.0 - 53.0 % CERNER MILLENNIUM Lymphocytes Abs 1.5 1.0 - 3.6 x10(3)/mc L CERNER MILLENNIUM Monocyte % 5.9 4.0 - 13.0 % CERNER MILLENNIUM Monocyte Abs 0.5 0.2 - 1.0 x10(3)/mc L CERNER MILLENNIUM Eos % 0.9 0.0 - 7.0 % CERNER MILLENNIUM Eosinophils Abs 0.1 0.0 - 0.5 x10(3)/mc L CERNER MILLENNIUM Basophil % 0.3 0.0 - 2.0 % CERNER MILLENNIUM Baso Absolute 0.0 0.0 - 0.2 x10(3)/mc L CERNER MILLENNIUM Immature Gran % 0.20 0.00 - 0.66 % CERNER MILLENNIUM Comment: Immature granulocytes(IG's)percentage and absolute count will include metamyelocytes, myelocytes, and promyelocytes. Blood smears from CBCs yielding IG's will be scanned manually for concordance. If this scan disagrees with the automated IG or if promyelocytes are noted, a manual differential will be performed. Immature Gran Absolute 0.02 0.00 - 0.05 x10(3)/mc L CERNER MILLENNIUM Blood specimen (specimen) 03/25/2010 8:00 PM EST 03/25/2010 8:09 PM EST Andrew Lockwood II, MD HEMATOLOGY ORDE [facility] Performing Organization Address City/[facility]/ZIP Co de Phone Number CERNER MILLENNIUM * (ABNORMAL) PROTIME-INR (03/25/2010 8:00 PM EST) Prothrombin Time 16.3(H) 12.3 - 14.7 sec CERNER MILLENNIUM Comment: [facility] Transfusion Committee Guidelines: INR less than 2.0, PTT less than OR equal to 43.5 seconds, or Fibrinogen greater than or equal to 100 mg/dl indicate adequate procoagulant activity for hemostasis in patients without underlying bleeding disorders. International Normalization Ratio 1.3(H) 0.9 - 1.1 CERNER MILLENNIUM Blood specimen (specimen) 03/25/2010 8:00 PM EST 03/25/2010 8:10 PM EST Andrew Lockwood II, MD HEMATOLOGY ORDCelina ARROYO Performing Organization Address [facility] de Phone Number ZIA PARKENNIUM * (ABNORMAL) APTT (03/25/2010 8:00 PM EST) Partial Thromboplastin Time 44(H) 25 - 37 sec CERMUNDO PARKENNIUM Comment: Recommended therapeutic PTT range for full dose unfractionated heparin is 80-114 seconds. Blood specimen (specimen) 03/25/2010 8:00 PM EST 03/25/2010 8:10 PM EST Andrew Lockwood II, MD HEMATOLOGY ORDE D[facility] Performing Organization Address [facility] de Phone Number IZA MARIEIUM * (ABNORMAL) CBC (03/25/2010 8:00 PM EST) White Blood Cell 8.6 4.0 - 10.0 x10(3)/mc L [facility] M[facility] Red Blood Cell 5.40 4.63 - 6.08 x10(6)/mc L CERNER MILLENNIUM Hemoglobin 15.6 13.7 - 17.5 gm/dL CERNER MILLENNIUM Hematocrit 45.7 40.0 - 51.0 % CERNER MILLENNIUM Mean Cell Volume 84.6 79.0 - 92.0 fL CERNER MILLENNIUM Mean Cell Hemoglobin 28.9 25.6 - 32.2 pg [facility] Mean Cell Hemoglobin Concentration 34.1 32.0 - 36.5 gm/dL [facility] MILLEN[facility]UM Platelet 242 145 - 370 x10(3)/mc L CERNER MILLENNIUM RDW Standard Deviation 48.8(H) 35.0 - 46.0 fL CERNER MILLENNIUM RDW coefficient of variation 16.0(H) 10.9 - 14.4 % CERNER MILLENNIUM Mean Platelet Volume 11.2 9.0 - 12.0 fL [facility] Blood specimen (specimen) 03/25/2010 8:00 PM EST 03/25/2010 8:09 PM EST Andrew Lockwood II, MD HEMATOLOGY YVONNE ARROYO [facility] * TSH (03/25/2010 8:00 PM EST) Thyroid Stimulating Hormone 1.59 0.27 - 4.20 mcIU/mL [facility] Comment: [place] Cord Blood Reference Range: ??0.35 23.00 uIU/mL Blood specimen (specimen) 03/25/2010 8:00 PM EST 03/25/2010 8:09 PM EST Andrew Lockwood II, MD CHEMISTRY ORDER ANNA Performing Organization Address City/[facility]/ZIP Co de Phone Number [facility] * (ABNORMAL) BRAIN NATRIURETIC PEPTIDE (03/25/2010 8:00 PM EST) NT-proBNP 187(H) <=125 pg/mL [facility] Blood specimen (specimen) 03/25/2010 8:00 PM EST 03/25/2010 8:09 PM EST Andrew Lockwood II, MD CHEMISTRY ORDER ANNA [facility] * HEMOGLOBIN A1C (03/25/2010 8:00 PM EST) Hemoglobin A1c 5.2 4.3 - 6.1 % CERNER MILLENNIUM Estimated Average Glucose 103 mg/dL [facility] Comment: eAG equivalents for HbA1c percentages: HbA1c(%) ?eAG(mg/dL) 6.0 ?126 6.5 ?140 7.0 ?154 7.5 ?169 8.0 ?183 8.5 ?197 9.0 ?212 9.5 ?226 10.0 ? 240 Limitations: The eAG calculation has not been validated on women, individuals below 18 years old and above 70 years old, and individuals with hemoglobinopathies. Additional resources are available on the ADA website: ??http://professional.diabetes.org/glucosecalculator.aspx Reference: Naseem ORELLANA, Maycol J, Samantha R, et al. ??Translating the A1C assay into estimated average glucose values. ??Diabetes Care 2008:31(8):1975-7403. Blood specimen (specimen) 03/25/2010 8:00 PM EST 03/25/2010 8:09 PM EST Andrew Lockwood II, MD CHEMISTRY ORDER ANNA [facility] * MAGNESIUM (03/25/2010 8:00 PM EST) Magnesium 0.94 0.69 - 1.07 mmol/L [facility] Blood specimen (specimen) 03/25/2010 8:00 PM EST 03/25/2010 8:09 PM EST Andrew Lockwood II, MD CHEMISTRY ORDER ANNA [facility] * PHOSPHORUS (03/25/2010 8:00 PM EST) Pathologist [facility] Phosphorus 2.6 2.5 - 4.5 mg/dL [facility] Blood specimen (specimen) 03/25/2010 8:00 PM EST 03/25/2010 8:09 PM EST Andrew Lockwood II, MD CHEMISTRY ORDER ANNA Performing Organization Address City/[facility]/ZIP Co de Phone Number [facility] * (ABNORMAL) LIPID PANEL (03/25/2010 8:00 PM EST) [facility] Cholesterol, Total 174 <=199 mg/dL [facility] Comment: Recommendations of the NCEP Adult Treatment Panel for the following risk cutoff thresholds for the [place] population: Desirable: <200 mg/dL Borderline High: 200-239 mg/dL High: > or = 240 mg/dL Triglyceride 104 <=149 mg/dL [facility] Comment: Reference Range: Normal triglycerides: ??<150 mg/dL Borderline high: ??150-199 mg/dL High: ??200-499 mg/dL Very high: ??>zy=534 mg/dL AMANDA 2001; 285(19):0880-5261 HDL Cholesterol 49 >=40 mg/dL [facility] Comment: Reference range: ??Low HDL: ?? < 40 mg/dL ??Normal: ?40-60 mg/dL ??Desirable: > 60 mg/dL AMANDA 2001; 285(19):2770-5758 LDL Cholesterol 104(H) <=99 mg/dL [facility] Comment: Reference range: ?? Optimal: ?<100 mg/dL ?? Near Optimal/Above Optimal: ?? 100-129 mg/dL ?? Borderline high: ?130-159 mg/dL ?? High: ? 160-189 mg/dL ?? Very high: ?>ah=817 mg/dL AMANDA 2001: 285(19):0929-5807 Cholesterol/HDL Ratio 3.6 ratio CERNER MILLENNIUM Comment: A Cholesterol to HDL ratio below 4:1 is desirable. ??Studies suggest that increased CAD risk occurs at ratios above 5 for females and above 6 for men. ? [place] Heart Association ??(http://www.americanheart.org) ? Gem Int Med, 1994; 121:641 ? AM J Med, 1998; 105(1A):48S Fasting? Not Indicated CERNER MILLENNIUM Blood specimen (specimen) 03/25/2010 8:00 PM EST 03/25/2010 8:09 PM EST Andrew Lockwood II, MD CHEMISTRY ORDER ANNA Performing Organization Address [facility] Co de Phone Number ZIA MARIEIUM * HEPATIC FUNCTION PANEL (03/25/2010 8:00 PM EST) Pathologist [facility] Protein, Total 7.6 6.4 - 8.3 gm/dL CERNER MILLENNIUM Albumin 4.2 3.2 - 5.2 gm/dL CERNER MILLENNIUM Aspartate Aminotransferase 22 0 - 39 unit/L CERNER MILLENNIUM Alanine Aminotransferase 22 0 - 55 unit/L CERNER MILLENNIUM Alkaline Phosphatase 88 40 - 120 unit/L CERNER MILLENNIUM Bilirubin, Total 0.7 0.2 - 1.3 mg/dL CERNER MILLENNIUM Bilirubin, Direct 0.2 0.0 - 0.3 mg/dL CERNER MILLENNIUM Blood specimen (specimen) 03/25/2010 8:00 PM EST 03/25/2010 8:09 PM EST Andrew Lockwood II, MD CHEMISTRY ORDER ANNA Performing Organization Address [facility] Co de Phone Number ZIA MARIEIUM * BASIC METABOLIC PANEL (NON-FASTING) (03/25/2010 8:00 PM EST) [facility] Glucose 143 <=199 mg/dL CERNER MILLENNIUM Comment:Diabetes: >=200 mg/d L plus symptoms Blood Urea Nitrogen 14 10 - 20 mg/dL CERNER MILLENNIUM Creatinine 0.84 0.80 - 1.50 mg/dL CERNER MILLENNIUM Sodium 140 135 - 145 mmol/L CERNER MILLENNIUM Potassium 3.5 3.5 - 5.0 mmol/L CERNER MILLENNIUM Comment: Please note: ??Patients with WBC >100,000 may have falsely elevated Potassium levels. ??For accurate Potassium quantification in these patients send serum separator tube (gold top) for subsequent determinations. ??Contact the Clinical Chemistry Laboratory if there are any questions. Chloride 105 98 - 107 mmol/L CERNER MILLENNIUM Carbon Dioxide 23 22 - 31 mmol/L CERNER MILLENNIUM Anion Gap 12 5 - 15 mmol/L CERNER MILLENNIUM Calcium 8.7 8.5 - 10.5 mg/dL CERNER MILLENNIUM Est [...] disease. References: http://nkdep.nih.gov/resources/NKDEP_Suggestn4Labs_0606_508.pdf http://www.kidney.org/professionals/kls/pdf/faq_gfr.pdf Blood specimen (specimen) 03/25/2010 8:00 PM EST 03/25/2010 8:09 PM EST Andrew Lockwood II, MD CHEMISTRY ORDER ANNA Performing Organization Address City/[facility]/ZIP Co de Phone Number ZIA MUÑIZ * CARDIAC ENZYME PANEL (03/25/2010 5:15 PM EST) Troponin-T <0.03 <=0.03 ng/mL CERNER MILLENNIUM Comment: 0.03 ng/mL: ??Represents the 99th percentile upper reference limit for normals >0.03 ng/mL: ??Elevated cardiac troponin T level indicative of myocardial damage Diagnosis of acute, evolving or recent AR requires a typical rise and gradual fall of cTnT with at least ONE of the following: a) ??Ischemic symptoms b) ??Development of pathologic Q waves on the ECG c) ??ECG changes indicative of ischemia (S-T segment elevation/depression) d) ??Coronary artery intervention Serial bloods should be obtained for testing on admission, at 6-9h and again at 12-24h if earlier samples are negative and the clinical index of suspicion is high. Reference [Myocardial infarction redefined a consensus document of the Joint Society of Cardiology/[place] College of Cardiology Committee for the redefinition of myocardial infarction. Journal of the [place] College of Cardiology 2000; 36: 959-969] Creatine Kinase 90 0 - 200 unit/L [facility] Blood specimen (specimen) 03/25/2010 5:15 PM EST 03/25/2010 5:28 PM EST Andrew Lockwood II, MD CHEMISTRY ORDER ANNA ZIA MUÑIZ documented in this encounter Visit Diagnoses Not on filedocumented in this encounter Active and Recently Administered Medications Care Teams Overhead Foreman Relationship Specialty Start Date End Date Emery oGel MD PCP - General 01/06/10 02/13/19 documented as of this encounter
--- OUTSIDE RECORDS SUMMARY | 2024-02-09 12:38 | XMS_ITS | Encounter Summary ---
Author Organization [facility] [place] [address] Care Team Providers Care Supervisor [employer] Name Role Phone Unknown Primary Care Provider Unavailabl e Reason for Visit * Reason Comments Vitreous Hemorrhage Encounter Details Date Type Department Care Team (Late st Contact Info) Description 02/19/2022 8:15 AM EST Office Visit [facility]note 3][place] [address] Michael Irizarry MD Vitreous hemorrhage of left eye (02/14/22) Social History Tobacco Use Types Packs/Day Years Used Date Smoking Tobacco: Never Assessed Sex and Gender Information Value Date Recorded Sex Assigned at Not on file Gender Identity Not on file Sexual Orientation Not on file documented as of this encounter Progress Notes * Michael Irizarry MD - 02/19/2022 8:15 AM EST ASSESSMENT/PLAN: 1. Vitreous hemorrhage of left eye (02/14/22) Visual Acuity Visual Acuity (Snellen - Linear) Right Left Dist cc 20/25 -2 HM Dist ph cc NI Near cc 20/20- HM Correction: Glasses 1. Vitreous Hemorrhage OS (02/14/22) Issac Espino presents with VH OS. The fundoscopic exam is very limited from the VH but the B-scandid not reveal any signs of RD, retinal tears or choroidal tumors. The patient is not diabetic. Discussed the broad DDx of this clinical presentation and the fact that the VH can take months to resolve. Surgical repair is not recommended at this point but might be an option in the future. Recommended using 2-3 pillows at bedtime and avoiding a supine position, limiting high impact exercise etc. Follow up 1wk for DFE, B-scan OS documented in this encounter Plan of Treatment Not on file documented as of this encounter Procedures Procedure Name Priority Date/Time Associated Diagnosis Comments US B-SCAN - OS - LEFT EYE Routine 02/19/2022 9:21 AM EST Vitreous hemorrhage of left eye (02/14/22) documented in this encounter Results * US B-Scan - OS - Left Eye (02/19/2022 9:21 AM EST) Anatomical Region Laterality Modality Other Narrative 02/19/2022 9:21 AM EST Reliability was good. Progression has no prior data. Quality was good. Findings included vitreous hemorrhage. Notes Plan: See a/p Michael Irizarry MD OPHTHALMOLOGY SERVICES ORDERABLES documented in this encounter Visit Diagnoses Diagnosis Vitreous hemorrhage of left eye (02/14/22) Vitreous hemorrhage documented in this encounter Care Teams Supervisor [employer] Relationship Specialty Start Date End Date Unknown None PCP - General 02/14/19 03/11/22 documented as of this encounter
--- OUTSIDE RECORDS SUMMARY | 2024-02-09 12:38 | XMS_ITS | Encounter Summary ---
Author Organization [facility] [place] [address] Care Team Providers Care Service Transformer Repair Supervisor Name Role Phone Ambrose Luan Primary Care Provider [phone] Reason for Visit * Reason Comments Vitreous Hemorrhage Encounter Details Date Type Department Care Team (Late st Contact Info) Description 03/12/2022 9:15 AM EST Office [place] [id number] Michael Irizarry MD Vitreous hemorrhage of left eye 02/14/2022 Social History Tobacco Use Types Packs/Day Years Used Date Smoking Tobacco: Never Smokeless Tobacco: Never Tobacco Cessation:Counseling Given: Not Answered Alcohol Use Standard Drinks/Week Comments Yes 1 (1 standard drink = 0.6 oz pur e alcohol) occ Sex and Gender Information Value Date Recorded Sex Assigned at Not on file Gender Identity Not on file Sexual Orientation Not on file documented as of this encounter Progress Notes * Michael Irizarry MD - 03/12/2022 9:15 AM EST ASSESSMENT/PLAN: 1. Vitreous hemorrhage of left eye 02/14/2022 Visual Acuity Visual Acuity (Snellen - Linear) Right Left Dist cc 20/20 LPwP Near cc 20/20 Correction: Glasses 1. Vitreous Hemorrhage OS (02/14/22) Exam and BScan negative for RD or tumors. VA even worse. Discussed the option of PPV vs observationand agreed to do surgery. The patient has already stopped ASA and got the green light from Raj Fitzgerald MD, his kitchen lead in [facility] to proceed with surgery under anesthesia and stop Eliquis 3 days prior (=today) AAO video shown/ASRS and DH fact sheet given Surgery will be done under MAC The risk of eye surgery include, but are not limited to, need for additional surgery, cataract formation, retinal detachment, endophthalmitis, retinal artery occlusion, suprachoroidal hemorrhage, lens dislocation, double vision (due to anesthesia or the surgery) permanent loss of vision, loss of eye. The patient understands the risks, and any and all questions were answered to the patient's satisfaction. The patient agrees to proceed with surgery as planned. The risks of anesthesia (including [place], CVA, etc) will be discussed with the anesthesia team. Follow up [facility] on 03/16 documented in this encounter Plan of Treatment Not on file documented as of this encounter Procedures Procedure Name Priority Date/Time Associated Diagnosis Comments US B-SCAN - OS - LEFT EYE Routine 03/12/2022 10:23 AM EST Vitreous hemorrhage of left eye 02/14/2022 documented in this encounter Results * US B-Scan - OS - Left Eye (03/12/2022 10:23 AM EST) Anatomical Region Laterality Modality Other Narrative 03/12/2022 10:23 AM EST Reliability was good. Progression has no prior data. Quality was good. Findings included vitreous hemorrhage. Notes Plan: See a/p Michael Irizarry MD OPHTHALMOLOGY SERVICES ORDERABLES documented in this encounter Visit Diagnoses Diagnosis Vitreous hemorrhage of left eye 02/14/2022 Vitreous hemorrhage documented in this encounter Care Teams Service Transformer Repair Supervisor Relationship Specialty Start Date End Date Ambrose Luna PA [address] [place] [address] PCP - General Internal Medicine 03/12/22 documented as of this encounter
--- OUTSIDE RECORDS SUMMARY | 2024-02-09 12:38 | XMS_ITS | Encounter Summary ---
Author Organization [facility] Address [address] [place] [address] Care Team Providers Care Personal Banking Officer Name Role Phone Sudhakar Fitzgerald MD Unavailable [phone] Ambrose Luna [facility] Primary Care Provider [phone] Reason for Visit * Reason Comments Coronary Artery Disease Encounter Details Date Type Department Care Team (Late st Contact Info) Description 03/10/2023 10:[address] [facility] [address] [place] [address] Sudhakar Fitzgerald MD [address] [facility] [address] [place] [address] S/P coronary artery stent placement (Primary Dx); Dyslipidemia; Essential hypertension; Permanent atrial fibrillation (HCC-CMS); Current use of lobsterman anticoagulation; Preoperative clearance Social History Tobacco Use Types Packs/Day Years [...] Sign Reading Time Taken Comments Blood Pressure 125/86 03/10/2023 1011 EST Pulse 58 03/10/2023 1011 EST Temperature - - Respiratory Rate - - Oxygen Saturation 95% 03/10/2023 1011 EST Inhaled Oxygen Concentration - - Weight 138 kg (304 lb 4.8 oz) 03/10/2023 1011 ES T Height 177.8 cm (5' 10) 03/10/2023 1011 EST Body Mass Index 43.66 03/10/2023 1011 EST documented in this encounter Functional Status * Because of [...] 07/16/2019 11:13 EDT documented in this encounter Progress Notes * Sudhakar Fitzgerald MD - 03/10/2023 1015 EST [facility] CARDIOLOGY FOLLOW-UP Date of Service: 03/10/2023 Reason for Visit: S/P coronary artery stent placement [Z95.5] ASSESSMENT CAD s/p LAD PCI 2010. MPI 2019 w / normal perfusion but abnormal contraction, EF 46 %. No angina orheart failure. HLP. On low dose statin + Zetia b/o intolerance to higher doses. No up to date lipid profile. HTN. Controlled. Permanent Afib. Rate controlled. Anti-coagulated, no bleeding. Pre-operative risk. Increased risk of cardiac events given h/o CVA and CAD. No active or prohibitive cardiac conditions. PLAN I did not make any medication changes today. ASA can be stopped if concerns bleeding but he should stay on Eliquis which can be held for 48 hrs prior to procedures if needed. Adjust lipid lowering Rx to achieve LDL < 70. Would check lipoprotein (a) w/ next cholesterol test; if Lp(a) > 125, aim for LDL of < 50. No need for further pre-op cardiac testing. Follow-up 1 year, no testing SUBJECTIVE Issac Espino, 1955 67 y.o. man with personal history of DAVEY no tolerating CPAP, CVA, permanent Afib and CAD s/p LAD PCI 2010. Feeling well. Denies any cardiac s/s. Functional capacity limited by knee pain - scheduled for TKR . Has been playing w/ the grandchildren. Does not feel limited from a cardioplumonary standpoint. Sequela from CVA include mild word finding difficulties. No motor deficits. No recurrent CVA or TIA Denies CP, SOB, PND, edema, palpitations, syncope, bleeding, GI symptoms. Outpatient Medications Marked as Taking for the 03/10/23 encounter (Office Visit) with Sudhakar Fitzgerald MD Medication Sig aspirin chewable 81 mg tablet Take 1 Tablet by mouth daily. atorvastatin (LIPITOR) 10 mg tablet Take 1 Tablet by mouth daily. Tuesday, Tuesday, Tuesday - 10mg celecoxib (CELEBREX) 100 mg capsule Take 1 Capsule by mouth daily. dilTIAZem (CARDIZEM CD) 120 mg capsule TAKE 1 CAPSULE BY MOUTH DAILY doxazosin (CARDURA) 4 mg tablet TK 1 T PO QD ELIQUIS 5 mg tablet Take 1 Tablet by mouth 2 times daily. ezetimibe (ZETIA) 10 mg tablet Take 1 Tablet by mouth daily. hydroCHLOROthiazide (HYDRODIURIL) 25 mg tablet Take by mouth daily. nitroGLYCERIN (NITROSTAT) 0.[address] under the tongue. Allergies: Lansoprazole, Lisinopril, Metoprolol, and Simvastatin Social Hx: Nonsmoker. No alcohol. ROS: Pertinent positives and negatives mentioned above. OBJECTIVE Wt Readings from Last 3 Encounters: 03/10/23 (!) 138 kg (304 lb 4.8 oz) 03/10/22 (!) 146.1 kg (322 lb) 02/25/21 (!) 147 kg (324 lb) BP Readings from Last 3 Encounters: 03/10/23 125/86 03/10/22 130/72 02/25/21 130/88 Pulse Readings from Last 3 Encounters: 03/10/23 58 03/10/22 85 02/25/21 81 Diagnostic Data: Available in- and [id number] records including laboratory and cardiac studies reviewed. Lab Results Hematology: Lab Results Component Value Date WBC 9.28 02/25/2021 HGB 16.3 02/25/2021 PLT 301 02/25/2021 No results found for: FERRITIN, IRON, TIBC, LABIRON Chemistry: Lab Results Component Value Date CREATININE 1.11 02/25/2021 CALCGFR 68 02/25/2021 BUN 19 02/25/2021 NA 142 02/25/2021 CL 102 02/25/2021 K 4.0 02/25/2021 MG 1.9 02/25/2021 LABALBU 4.3 02/25/2021 ALT 26 02/25/2021 AST 29 02/25/2021 ALKPHOS 101 02/25/2021 TBIL 0.6 02/25/2021 Cardiac Markers: No results found for: NTBNP, TROPONINI, CPK, URICACID, CRP, SCRP Lipids: Lab Results Component Value Date CHOL 165 02/25/2021 TRIG 125 02/25/2021 HDL 38 02/25/2021 LDL 83 01/28/2020 LDLBASE 102 02/25/2021 NHDLCH 127 02/25/2021 Endocrine: Lab Results Component Value Date TSH 1.56 02/25/2021 Cardiac & Imaging Studies NM stress test 2019: Normal perfusion. Diffuse hypokinesis, EF 46%. PHYSICAL EXAM GENERAL: No acute distress. HEENT: Anicteric. NECK: Supple, no obvious neck vein distention but difficult to assess due to body habitus. CHEST: Nontender. LUNGS: Clear to auscultation bilaterally, no rhonchi rales or wheezes. HEART: Regular rate and irregular rhythm, normal S1-S2, no murmurs. EXTREM: No cyanosis, or edema, equal pulses. SKIN: Warm and dry, no rashes. NEURO: Alert and oriented x3, grossly intact ORDERS & MEDICATION CHANGES No orders of the defined types were placed in this encounter. There are no discontinued medications. Med Orders Placed This Visit and Additions to the Medication List Medications celecoxib (CELEBREX) 100 mg capsule Sig: Take 1 Capsule by mouth daily. Sudhakar Fitzgerald MD, PhD documented in this encounter Plan of Treatment Upcoming Encounters Date Type Department Care Team (Late st Contact Info) Description 03/14/2024 8:[address] [facility] [address] [place] [address] Sudhakar Fitzgerald MD [address] [place] [address] [place] [address] documented as of this encounter Visit Diagnoses Diagnosis S/P coronary artery stent placement- Primary Postsurgical percutaneous transluminal coronary angioplasty status Dyslipidemia Other and unspecified hyperlipidemia Essential hypertension Unspecified essential hypertension Permanent atrial fibrillation (HCC-CMS) Atrial fibrillation Current use of usp anticoagulation Long-term (current) use of anticoagulants Preoperative clearance Preoperative examination, unspecified documented in this encounter Historical Medications * This list may reflect changes made after this encounter. celecoxib (CELEBREX) 100 mg capsule Take 1 Capsule by mouth daily. added in this encounter Care Teams Personal Banking Officer Relationship Specialty Start Date End Date Ambrose Luna RPA [address] [place] [id number] PCP - General Family Medicine - Primary Care 02/15/20 Sudhakar Fitzgerald MD [address] [place] [address] [address] [place] [address] Cardiovascular Disease 02/25/21 documented as of this encounter
--- OUTSIDE RECORDS SUMMARY | 2024-02-09 12:38 | XMS_ITS | Encounter Summary ---
Author Organization [facility] Address [address] [place] [address] Care Team Providers Care Music Writer Name Role Phone Sudhakar Fitzgerald MD Unavailable [phone] Ambrose Luna [facility] Primary Care Provider [phone] Encounter Details Date Type Department Care Team (Late st Contact Info) Description 02/25/2021 8:55 EST Phlebotomy Only [facility] - Outpatient Phlebotomy Drawing [address] [place] [address] Lab, [facility] Dyslipidemia; Permanent atrial fibrillation (HCC-CMS) (HCC) Social History Tobacco Use Types Packs/Day Years [...] Description 03/14/2024 8:[address] [facility] [address] [place], [place] [id number] Sudhakar Fitzgerald MD 130 [facility] [address] [place] [address] documented as of this encounter Procedures Procedure Name Priority Date/Time Associated Diagnosis Comments THYROID CASCADE Routine 02/25/2021 8:55 EST Permanent atrial fibrillation (HCC-CMS) (HCC) Dyslipidemia COMPLETE BLOOD COUNT AND DIFFERENTIAL Routine 02/25/2021 8:55 EST Permanent atrial fibrillation (HCC-CMS) (HCC) MAGNESIUM Routine 02/25/2021 8:55 EST Permanent atrial fibrillation (HCC-CMS) (HCC) LIPID PROFILE (INCLUDES CHOLESTEROL, TRIGLYCERIDES, HDL, LDL) Routine 02/25/2021 8:55 EST Dyslipidemia COMPREHENSIVE METABOLIC PANEL (CMP) Routine 02/25/2021 8:55 EST Permanent atrial fibrillation (HCC-CMS) (HCC) documented in this encounter Results * MAGNESIUM (02/25/2021 8:55 EST) Magnesium 1.9 1.7 - 2.8 mg/dL 02/25/2021 10:07 EST [facility] Blood VENOUS BLOOD / Unknown Venipuncture / Unknown 02/25/2021 8:55 EST 02/25/2021 9:27 EST us Sudhakar Fitzgerald MD CHEMISTRY & BLOOD GAS ORDERABL ES Final Result [facility] [address] [place] [address] * THYROID CASCADE (02/25/2021 8:55 EST) TSH 1.56 0.47 - 4.68 ??IU/mL 02/25/2021 10:41 EST [facility] Blood VENOUS BLOOD / Unknown Venipuncture / Unknown 02/25/2021 8:55 EST 02/25/2021 9:27 EST [facility] - 02/25/2021 10:41 EST NOTE: The results of this assay can be falsely lowered due to the consumption of Biotin. us Sudhakar Fitzgerald MD CHEMISTRY & BLOOD GAS ORDERABL ES Final Result [facility] [address] [place] [address] * (ABNORMAL) COMPREHENSIVE METABOLIC PANEL (CMP) (02/25/2021 8:55 EST) Sodium 142 136 - 145 mmol/L 02/25/2021 10:07 [facility] Potassium 4.0 3.5 - 5.0 mmol/L 02/25/2021 10:07 [facility] Chloride 102 96 - 110 mmol/L 02/25/2021 10:07 [facility] CO2 Total 32 22 - 32 mmol/L 02/25/2021 10:07 [facility] Glucose 109(H) 70 - 100 mg/dL 02/25/2021 10:07 [facility] BUN 19 10 - 26 mg/dL 02/25/2021 10:07 [facility] Creatinine 1.11 0.66 - 1.25 mg/dL 02/25/2021 10:07 [facility] eGFR 68 >60 mL/min/1.7 3m2 02/25/2021 10:07 [facility] Total Protein 7.6 6.3 - 8.2 g/dL 02/25/2021 10:07 [facility] Albumin 4.3 3.4 - 4.9 g/dL 02/25/2021 10:07 [facility] Alkaline Phosphatase 101 38 - 126 U/L 02/25/2021 10:07 [facility] AST 29 15 - 46 U/L 02/25/2021 10:07 [facility] ALT 26 <50 U/L 02/25/2021 10:07 [facility] Bilirubin, Total 0.6 <1.4 mg/dL 02/25/19 10:07 [facility] Calcium 9.3 8.5 - 10.5 mg/dL 02/25/2021 10:07 [facility] Albumin/Globulin Ratio 1.3 1.0 - 2.5 02/25/2021 10:07 [facility] Anion Gap 8 8 - 16 02/25/2021 10:07 [facility] Blood VENOUS BLOOD / Unknown Venipuncture / Unknown 02/25/2021 8:55 EST 02/25/2021 9:27 EST us Sudhakar Fitzgerald MD CHEMISTRY & BLOOD GAS ORDERABL ES Final Result [facility] [address] [place] [address] * (ABNORMAL) COMPLETE BLOOD COUNT AND DIFFERENTIAL (02/25/2021 8:55 EST) WBC 9.28 4.00 - 10.40 K/cmm 02/25/2021 10:00 [facility] RBC 5.40 4.36 - 5.78 M/cmm 02/25/2021 10:00 [facility] Hemoglobin 16.3 13.8 - 17.3 gm/dL 02/25/2021 10:00 [facility] HCT 48.4 39.5 - 50.2 % 02/25/2021 10:00 [facility] MCV 90 81 - 95 fl 02/25/2021 10:00 [facility] MCH 30.2 27.6 - 33.0 pg 02/25/2021 10:00 [facility] MCHC 33.7 32.8 - 36.4 gm/dL 02/25/2021 10:00 [facility] RDW-CV 14.8(H) <14.2 % 02/25/2021 10:00 [facility] RDW-SD 49.2(H) <46.0 fl 02/25/2021 10:00 [facility] PLT 301 141 - 377 K/cmm 02/25/2021 10:00 [facility] MPV 11.1 9.5 - 12.7 fl 02/25/2021 10:00 [facility] % Neutrophils 64.8 % 02/25/2021 10:00 [facility] % Lymphocytes 25.3 % 02/25/2021 10:00 [facility] % Monocytes 7.5 % 02/25/2021 10:00 [facility] % Eosinophils 1.3 % 02/25/2021 10:00 [facility] % Basophils 0.8 % 02/25/2021 10:00 [facility] % Immature Grans 0.3 % 02/25/19 10:00 [facility] Absolute Neutrophils 6.01 2.20 - 8.85 K/cmm 02/25/2021 10:00 [facility] Absolute Lymphocytes 2.35 1.09 - 3.30 K/cmm 02/25/2021 10:00 [facility] Absolute Monocytes 0.70 0.10 - 0.80 K/cmm 02/25/2021 10:00 [facility] Absolute Eosinophils 0.12 0.03 - 0.61 K/cmm 02/25/2021 10:00 [facility] ABS Basophils 0.07 0.01 - 0.11 K/cmm 02/25/2021 10:00 [facility] Absolute Immature Grans 0.03 0.00 - 0.06 K/cmm 02/25/2021 10:00 [facility] Type of Differential: Auto 02/25/2021 10:00 [facility] Blood VENOUS BLOOD / Unknown Venipuncture / Unknown 02/25/2021 8:55 EST 02/25/2021 9:58 EST us Sudhakar Fitzgerald MD PACKAGES & DNA PROBE ORDERABLE S Final Result [facility] [address] [place] [address] * LIPID PROFILE (INCLUDES CHOLESTEROL, TRIGLYCERIDES, HDL, LDL) (02/25/2021 8:55 EST) Cholesterol 165 See Note mg/dL 02/25/2021 10:07 [facility] Comment: Acceptable: ?<200 mg/dL Borderline High: 200-239 mg/dL High: ?> or = 240 mg/dL HDL 38 See Note mg/dL 02/25/2021 10:07 [facility] Comment: Low: ? <40 mg/dL Normal: ??40-60 mg/dL High: ?>60 mg/dL LDL, Calculated 102 See Note mg/dL 02/25/2021 10:07 [facility] Comment: Optimal: ? <100 mg/dL Near Optimal: ?100-129 mg/dL Borderline High: 130-159 mg/dL High: ?160-189 mg/dL Very High: ? > or = 190 mg/dL Triglyceride 125 See Note mg/dL 02/25/2021 10:07 [facility] Comment: Normal: ? <150 mg/dL Borderline High: ??150 - 199 mg/dL High: ? 200 - 499 mg/dL Very High: ?> or = 500 mg/dL Chol/HDL Ratio 4.3 See Note 02/25/2021 10:07 [facility] Comment: NOTE: Desirable Ratio = <4.1 Patient At Risk Ratio = >5.0(Males) ?>6.0(Females) Non HDL Cholesterol 127 See Note mg/dL 02/25/2021 10:07 [facility] Comment: Desirable: ?<130 mg/dL Borderline High: ??130-159 mg/dL High: ? 160-189 mg/dL Very High: ?> or = 190 mg/dL Blood VENOUS BLOOD / Unknown Venipuncture / Unknown 02/25/2021 8:55 EST 02/25/2021 9:27 EST Sudhakar Fitzgerald MD CHEMISTRY & BLOOD GAS ORDERABL ES Final Result [facility] [address] [place] [address] documented in this encounter Visit Diagnoses Diagnosis Dyslipidemia Other and unspecified hyperlipidemia Permanent atrial fibrillation (HCC-CMS) Atrial fibrillation documented in this encounter Care Teams Music Writer Relationship Specialty Start Date End Date Ambrose Luna RPA [address] [place] [address] [place] [address] PCP - General Family Medicine - Primary Care 02/15/20 Sudhakar Fitzgerald MD 130 [facility] [address] [place] [address] Cardiovascular Disease 02/25/21 documented as of this encounter
--- OUTSIDE RECORDS SUMMARY | 2024-02-09 12:38 | XMS_ITS | Encounter Summary ---
Author Organization [facility] Address [address] [place] [address] Care Team Providers Care Balloon Dipper Name Role Phone Sudhakar Fitzgerald MD Unavailable [phone] [facility] Primary Care Provider [phone] Encounter Details Date Type Department Care Team (Late st Contact Info) Description 08/25/2021 Lab Requisition [facility] Pathology & Laboratory Medicine - [address] [id number] Outr Resulting Lab, Provider Social History Tobacco [...] Info) Description 03/14/2024 8:15 EST Office Visit [facility] [address] [place] [address] [place] [address] Sudhakar Fitzgerald MD [address] [facility] [address] [place] [address] documented as of this encounter Procedures Procedure Name Priority Date/Time Associated Diagnosis Comments PSA TOTAL, DIAGNOSTIC Routine 08/25/2021 7:30 EDT documented in this encounter Results * PSA TOTAL, DIAGNOSTIC (08/25/2021 7:30 EDT) PSA 3.2 <=4.5 ng/mL 08/26/2021 18:30 EDT [facility] Blood VENOUS BLOOD / Unknown 08/25/2021 7:30 EDT 08/26/2021 16:48 EDT Narrative [facility] - 08/26/2021 18:30 EDT NOTE: Serum PSA concentration should not be interpreted as absolute evidence for the presence or absence of malignant disease. Assayed on Siemens [employer] XPT using chemiluminescent technology.??Values obtained by using different assay methods cannot be used interchangeably. us Provider Outr Resulting Lab CHEMISTRY & BLOOD GA S ORDERABLES Final Result [facility] [address] [place] [address] documented in this encounter Visit Diagnoses Not on filedocumented in this encounter Care Teams Balloon Dipper Relationship Specialty Start Date End Date Ambrose Luna RPA [address] [place] [address] PCP - General Family Medicine - Primary Care 02/15/20 Sudhakar Fitzgerald MD [address] [facility] [address] [place] [address] Cardiovascular Disease 02/25/21 documented as of this encounter
--- OUTSIDE RECORDS SUMMARY | 2024-02-09 12:38 | XMS_ITS | Encounter Summary ---
Author Organization [facility] Address [address] [place] [address] Care Team Providers Care Pack Press Operator Name Role Phone Sudhakar Fitzgerald MD Unavailable [phone] [facility] Primary Care Provider [phone] Encounter Details Date Type Department Care Team (Late st Contact Info) Description 08/03/2023 Lab Requisition [facility] Pathology & Laboratory Medicine - [address] [id number] Outr Resulting Lab, Provider Social History Tobacco [...] Info) Description 03/14/2024 8:15 EST Office Visit [facility] [address] [place] [address] [place] [address] Sudhakar Fitzgerald MD 130 [facility] [address] [place] [address] documented as of this encounter Procedures Procedure Name Priority Date/Time Associated Diagnosis Comments PSA TOTAL, DIAGNOSTIC Routine 08/02/2023 10:30 EDT documented in this encounter Results * PSA TOTAL, DIAGNOSTIC (08/02/2023 10:30 EDT) PSA 3.4 <=4.5 ng/mL 08/03/2023 18:22 EDT [facility] Blood VENOUS BLOOD / Unknown 08/02/2023 10:30 EDT 08/03/2023 17:08 EDT Narrative [facility] - 08/03/2023 18:22 EDT NOTE: Serum PSA concentration should not be interpreted as absolute evidence for the presence or absence of malignant disease. Assayed on Siemens [employer] XPT using chemiluminescent technology.??Values obtained by using different assay methods cannot be used interchangeably. us Provider Outr Resulting Lab CHEMISTRY & BLOOD GA S ORDERABLES Final Result [facility] [address] [place] [address] documented in this encounter Visit Diagnoses Not on filedocumented in this encounter Care Teams Pack Press Operator Relationship Specialty Start Date End Date Ambrose Luna RPA [address] [place] [id number] PCP - General Family Medicine - Primary Care 02/15/20 Sudhakar Fitzgerald MD [address] [facility] [address] [place] [address] Cardiovascular Disease 02/25/21 documented as of this encounter
--- OUTSIDE RECORDS SUMMARY | 2024-02-09 12:38 | XMS_ITS | Encounter Summary ---
Author Organization [facility] [place] [address] Care Team Providers Care Support Assistant Name Role Phone Unknown Primary Care Provider Unavailabl e Encounter Details Date Type Department Care Team (Late st Contact Info) Description 02/22/2022 [place]phone [place] [id number] Michael Irizarry MD Social History Tobacco Use Types Packs/Day Years Used Date Smoking Tobacco: Never Assessed Sex and Gender Information Value Date Recorded Sex Assigned at Not on file Gender Identity Not on file Sexual Orientation Not on file documented as of this encounter Miscellaneous Notes * Telephone Encounter - Clark Dodd - 02/22/2022 8:49 AM EST Pt scheduled * Telephone Encounter - Makayla Haddad - 02/22/2022 8:29 AM EST LM for pt to schedule next appt with DM: Follow up 1wk for DFE, B-scan OS documented in this encounter Plan of Treatment Not on file documented as of this encounter Visit Diagnoses Not on filedocumented in this encounter Care Teams Support Assistant Relationship Specialty Start Date End Date Unknown None PCP - General 02/14/19 03/11/22 documented as of this encounter
--- OUTSIDE RECORDS SUMMARY | 2024-02-09 12:38 | XMS_ITS | Encounter Summary ---
Author Organization [facility] [place] Address [address] [place] [address] Care Team Providers Care Licensed Psychologist Manager Name Role Phone Emery Goel MD Primary Care Provider [phone] Encounter Details Date Type Department Care Team (Late st Contact Info) Description 07/25/2018 Historical Results Only [facility] Radiology Results [address], [place] [address] Coco Sol MD [address] [place] [id number] Social History Tobacco Use Types Packs/Day Years Used Date Smoking Tobacco: Never Assessed Sex and Gender Information Value Date Recorded Sex Assigned at Not on file Legal Sex Male 18:30 EST Gender Identity Male 01/12/2021 10:53 EST Sexual Orientation Not on file documented as of this encounter Plan of Treatment Upcoming Encounters Date Type Department Care Team (Late st Contact Info) Description 03/14/2024 8:15 EST Office Visit [facility] Cardiology Clinic [address] [place], [place] [id number] Sudhakar Fitzgerald MD [address] [facility] [address] [place] [address] documented as of this encounter Procedures Procedure Name Priority Date/Time Associated Diagnosis Comments NM MYOCARDIAL SPECT 07/25/2018 1 0:09 EDT NM MYOCARDIAL SPECT 07/25/2018 1 0:09 EDT NM CARD SPECT NUCLEAR STRESS 07/25/2018 10:09 EDT NM CARD SPECT NUCLEAR STRESS 07/25/2018 10:09 EDT documented in this encounter Results * NM MYOCARDIAL SPECT (07/25/2018 10:09 EDT) Anatomical Region Laterality Modality Other 07/25/2018 10:0 9 EDT Narrative 07/28/2018 9:07 EDT ? EXAM: NUCLEAR MEDICINE/NUCLEAR STRESS SHONNA EX. D/ (1019) ? CLINICAL INFORMATION: ? I25.10 ATHEROSCLEROTIC HEART DISEASE ? EXAM: NUCLEAR MEDICINE/MYOVIEW DX RN ?EX. D/ (1019) ? CLINICAL INFORMATION: ? EXAM: NUCLEAR MEDICINE/NUCLEAR STRESS SHONNA EX. D/ (1009) ? CLINICAL INFORMATION: ? I25.10 ATHEROSCLEROTIC HEART DISEASE OF [place] ? CORONARY ARTERY WITHOUT ANGINA PECTORIS ? EXAM: NUCLEAR MEDICINE/MYOVIEW DX RN ?EX. D/ (1009) ? CLINICAL INFORMATION: ? I25.10 ATHEROSCLEROTIC HEART DISEASE OF [place] ? CORONARY ARTERY WITHOUT ANGINA PECTORIS ? *[facility]* ? *[facility]* ? [address] ? [place] [address] ? Myocardial Perfusion Imaging - SPECT ? Regadenoson ? Date of study: ??07/24/2018 ? *PATIENT PRESENTATION* ? Height: ? 177.8cm (70in) ? Blood Pressure: ? Weight: ? 151.8kg (334lb) ? BSA: ?2.82m S 2 ? Ordering physician: Coco Sol ? Impressions: ? - Normal perfusion by Tc99m Sestamibi Imaging. ? - Abnormal contraction consistent with cardiomyopathy. ? Summary: ? 1. Myocardial perfusion imaging: No myocardial perfusion defects ?noted. ? 2. The left ventricular end-systolic volume is 73ml. The calculated ?left ventricular ejection fraction after stress: 46%. LV global ?systolic function is mildly reduced. Diffuse left ventricular ?regional motion abnormalities. ? 3. Stress ECG conclusions: The stress ECG is negative. ? 4. Baseline ECG: Atrial fibrillation. ? Indication: ?? MAGALLANES, Appropriate Use Criteria: A (Appropriate). ? History: ? PAGE 1 ? Signed Report ? (CONTINUED) ? PAST 6 MONTHS, SOB WITH EXERTION. ? NO CHEST PAIN ? CHRONIC ATRIAL FIB, S/P STROKE. ? 2010- [place]- STENT X 1( LAD) ? Risk factors: ??Family history of coronary artery disease. ? Hypertension. Obesity. Dyslipidemia. ? MEDS: SEE ECW. ? Imaging Technique: ? Protocol: ??Regadenoson. ? Acquisition: ?? Gated SPECT; 1 day - rest/stress. ?The patient was ? imaged in the supine position. Attenuation correction used. ? Isotope administration: ? - Rest. Tc[99m]-sestamibi. Injection to stress time: 00:45. ? - Stress. Tc[99m]-sestamibi. 1-2 min before end of exercise ? Baseline ECG: ??ATRIAL FIB- 79 BPM. ??Atrial fibrillation. ? Stress protocol: ? +--------+--+ + + ? !Stage ?? !HR!BP (mmHg) ?!Comments ? ! ? +--------+--+ + + ? !Baseline!79!171/101 (124)! ! ? +--------+--+ + + ? !1 min ?? !78! !Inject Regadenoson.! ? +--------+--+ + + ? !2 min ?? !86!140/93 (109) ! ! ? +--------+--+ + + ? !3 min ?? !70! ! ! ? +--------+--+ + + ? !4 min ?? !76!171/101 (124)! ! ? +--------+--+ + + ? !5 min ?? !70! ! ! ? +--------+--+ + + ? !6 min ?? !80!155/96 (116) ! ! ? +--------+--+ + + ? !7 min ?? !76! ! ! ? +--------+--+ + + ? * ? Stress results: ??The rate-pressure product for the peak heart rate and ? blood pressure was 92926ly Hg/min. ? Stress ECG: ? RESTING LEXISCAN STUDY ? NO CHEST PAIN ? NO ECTOPY ? NO ISCHEMIC ECG CHANGES. ??The stress ECG is negative. ? Myocardial perfusion: ?? Imaging information: gated. The left ventricle ? is mildly dilated. No myocardial perfusion defects noted. ? Ventricular Function (Wall Motion): ?? The left ventricular ? end-systolic volume is 73ml. The calculated left ventricular ejection ? PAGE 2 ? Signed Report ? (CONTINUED) ? fraction after stress: 46%. LV global systolic function is mildly ? reduced. ?? Diffuse left ventricular regional motion abnormalities. ? Study data: ??Sudhakar Fitzgerald MD supervised and was readily available ? during the procedure. This study was interpreted by [facility]. ? Study status: ??Routine. ? Consent: ??The risks, benefits, and alternatives to the procedure were ? explained to the patient and informed consent was obtained. ? Procedure: ??Initial setup. A baseline ECG was recorded. ? Surface ECG leads and manual cuff blood pressure measurements were ? monitored. ? Heart sounds: Normal. ? Lung sounds: Normal. ? Regadenoson stress test. Stress testing was performed, with ? regadenoson by intravenous bolus, for a total dose of 0.4mgover ? 10.00sec, followed by a 5ml saline flush. The infusion was terminated ? due to per protocol. ? Study completion: ??All catheters inserted during the procedure were ? removed. The patient tolerated the procedure well and was discharged ? from the lab. ? Discharge: ??The patient left the laboratory in stable condition. ? Birthdate: ??Patient birthdate: 1955. ? Sex: Gender: male. ? Study date: ??Study date: 07/24/2018. ? Study time: 10:00 AM. ? Signature Documentation: ? - The imaging portion of this study was interpreted by Nuclear ? Business Transformation Consultant Sudhakar Fitzgerald MD. ? - The Stress ECG portion of this study was interpreted by Sudhakar ? MD Amilcar. ? Electronically signed by ? Sudhakar Fitzgerald ? 07/25/2018 16:24 ?Reported By: Sudhakar Fitzgerald MD ? CC: ? Transcribed Date/Time: 07/28/2018 (0907) ? Straightedge Worker: [email or web address] ? Printed Date/Time: 11/01/2018 (1723) ? PAGE 3 ? Signed Report ? Procedure Note Sudhakar Fitzgerald MD - 12/19/2018 EXAM: NUCLEAR MEDICINE/NUCLEAR STRESS SHONNA EX. D/ (1019) CLINICAL INFORMATION: I25.10 ATHEROSCLEROTIC HEART DISEASE EXAM: NUCLEAR MEDICINE/MYOVIEW DX RN EX. D/ (1019) CLINICAL INFORMATION: EXAM: NUCLEAR MEDICINE/NUCLEAR STRESS SHONNA EX. D/ (1009) CLINICAL INFORMATION: I25.10 ATHEROSCLEROTIC HEART DISEASE OF [place] CORONARY ARTERY WITHOUT ANGINA PECTORIS EXAM: NUCLEAR MEDICINE/MYOVIEW DX RN EX. D/ (1009) CLINICAL INFORMATION: I25.10 ATHEROSCLEROTIC HEART DISEASE OF [place] CORONARY ARTERY WITHOUT ANGINA PECTORIS *[facility]* *[facility]* [address] [place] [address] Myocardial Perfusion Imaging - SPECT Regadenoson Date of study: 07/24/2018 *PATIENT PRESENTATION* Height: 177.8cm (70in) Blood Pressure: Weight: 151.8kg (334lb) BSA: 2.82m S 2 Ordering physician: Coco Sol Impressions: - Normal perfusion by Tc99m Sestamibi Imaging. - Abnormal contraction consistent with cardiomyopathy. Summary: 1. Myocardial perfusion imaging: No myocardial perfusion defects noted. 2. The left ventricular end-systolic volume is 73ml. The calculated left ventricular ejection fraction after stress: 46%. LV global systolic function is mildly reduced. Diffuse left ventricular regional motion abnormalities. 3. Stress ECG conclusions: The stress ECG is negative. 4. Baseline ECG: Atrial fibrillation. Indication: MAGALLANES, Appropriate Use Criteria: A (Appropriate). History: PAGE 1 Signed Report (CONTINUED) PAST 6 MONTHS, SOB WITH EXERTION. NO CHEST PAIN CHRONIC ATRIAL FIB, S/P STROKE. 2011- [place]- STENT X 1( LAD) Risk factors: Family history of coronary artery disease. Hypertension. Obesity. Dyslipidemia. MEDS: SEE ECW. Imaging Technique: Protocol: Regadenoson. Acquisition: Gated SPECT; 1 day - rest/stress. The patient was imaged in the supine position. Attenuation correction used. Isotope administration: - Rest. Tc[99m]-sestamibi. Injection to stress time: 00:45. - Stress. Tc[99m]-sestamibi. 1-2 min before end of exercise Baseline ECG: ATRIAL FIB- 79 BPM. Atrial fibrillation. Stress protocol: +--------+--+ + + !Stage !HR!BP (mmHg) !Comments ! +--------+--+ + + !Baseline!79!171/101 (124)! ! +--------+--+ + + !1 min !78! !Inject Regadenoson.! +--------+--+ + + !2 min !86!140/93 (109) ! ! +--------+--+ + + !3 min !70! ! ! +--------+--+ + + !4 min !76!171/101 (124)! ! +--------+--+ + + !5 min !70! ! ! +--------+--+ + + !6 min !80!155/96 (116) ! ! +--------+--+ + + !7 min !76! ! ! +--------+--+ + + * Stress results: The rate-pressure product for the peak heart rateand blood pressure was 60026kx Hg/min. Stress ECG: RESTING LEXISCAN STUDY NO CHEST PAIN NO ECTOPY NO ISCHEMIC ECG CHANGES. The stress ECG is negative. Myocardial perfusion: Imaging information: gated. The leftventricle is mildly dilated. No myocardial perfusion defects noted. Ventricular Function (Wall Motion): The left ventricular end-systolic volume is 73ml. The calculated left ventricularejection PAGE 2 Signed Report (CONTINUED) fraction after stress: 46%. LV global systolic function is mildly reduced. Diffuse left ventricular regional motion abnormalities. Study data: Sudhakar Fitzgerald MD supervised and was readilyavailable during the procedure. This study was interpreted by [facility]. Study status: Routine. Consent: The risks, benefits, and alternatives to the procedurewere explained to the patient and informed consent was obtained. Procedure: Initial setup. A baseline ECG was recorded. Surface ECG leads and manual cuff blood pressure measurements were monitored. Heart sounds: Normal. Lung sounds: Normal. Regadenoson stress test. Stress testing was performed, with regadenoson by intravenous bolus, for a total dose of 0.4mgover 10.00sec, followed by a 5ml saline flush. The infusion wasterminated due to per protocol. Study completion: All catheters inserted during the procedure were removed. The patient tolerated the procedure well and wasdischarged from the lab. Discharge: The patient left the laboratory in stable condition. Birthdate: Patient birthdate: 1955. Sex: Gender: male. Study date: Study date: 07/24/2018. Study time: 10:00 AM. Signature Documentation: - The imaging portion of this study was interpreted by Nuclear Business Transformation Consultant Sudhakar Fitzgerald MD. - The Stress ECG portion of this study was interpreted by Sudhakar Fitzgerald MD. Electronically signed by Sudhakar Fitzgerald 07/25/2018 16:24 Reported By: Sudhakar Fitzgerald MD CC: Transcribed Date/Time: 07/28/2018 (0907) Straightedge Worker: [email or web address] Printed Date/Time: 11/01/2018 (4667) PAGE 3 Signed Report Coco Sol MD IMG NM ORDERABLES Final Res ult * NM CARD SPECT NUCLEAR STRESS (07/25/2018 10:09 EDT) Anatomical Region Laterality Modality Chest Nuclear Stress 07/25/2018 10:0 9 EDT Narrative 07/28/2018 9:07 EDT ? EXAM: NUCLEAR MEDICINE/NUCLEAR STRESS SHONNA EX. D/ (1019) ? CLINICAL INFORMATION: ? I25.10 ATHEROSCLEROTIC HEART DISEASE ? EXAM: NUCLEAR MEDICINE/MYOVIEW DX RN ?EX. D/ (1019) ? CLINICAL INFORMATION: ? EXAM: NUCLEAR MEDICINE/NUCLEAR STRESS SHONNA EX. D/ (1009) ? CLINICAL INFORMATION: ? I25.10 ATHEROSCLEROTIC HEART DISEASE OF [place] ? CORONARY ARTERY WITHOUT ANGINA PECTORIS ? EXAM: NUCLEAR MEDICINE/MYOVIEW DX RN ?EX. D/ (1009) ? CLINICAL INFORMATION: ? I25.10 ATHEROSCLEROTIC HEART DISEASE OF [place] ? CORONARY ARTERY WITHOUT ANGINA PECTORIS ? *[facility]* ? *[facility]* ? [address] ? [place] [address] ? Myocardial Perfusion Imaging - SPECT ? Regadenoson ? Date of study: ??07/24/2018 ? *PATIENT PRESENTATION* ? Height: ? 177.8cm (70in) ? Blood Pressure: ? Weight: ? 151.8kg (334lb) ? BSA: ?2.82m S 2 ? Ordering physician: Coco Sol ? Impressions: ? - Normal perfusion by Tc99m Sestamibi Imaging. ? - Abnormal contraction consistent with cardiomyopathy. ? Summary: ? 1. Myocardial perfusion imaging: No myocardial perfusion defects ?noted. ? 2. The left ventricular end-systolic volume is 73ml. The calculated ?left ventricular ejection fraction after stress: 46%. LV global ?systolic function is mildly reduced. Diffuse left ventricular ?regional motion abnormalities. ? 3. Stress ECG conclusions: The stress ECG is negative. ? 4. Baseline ECG: Atrial fibrillation. ? Indication: ?? MAGALLANES, Appropriate Use Criteria: A (Appropriate). ? History: ? PAGE 1 ? Signed Report ? (CONTINUED) ? PAST 6 MONTHS, SOB WITH EXERTION. ? NO CHEST PAIN ? CHRONIC ATRIAL FIB, S/P STROKE. ? 2010- [place]- STENT X 1( LAD) ? Risk factors: ??Family history of coronary artery disease. ? Hypertension. Obesity. Dyslipidemia. ? MEDS: SEE ECW. ? Imaging Technique: ? Protocol: ??Regadenoson. ? Acquisition: ?? Gated SPECT; 1 day - rest/stress. ?The patient was ? imaged in the supine position. Attenuation correction used. ? Isotope administration: ? - Rest. Tc[99m]-sestamibi. Injection to stress time: 00:45. ? - Stress. Tc[99m]-sestamibi. 1-2 min before end of exercise ? Baseline ECG: ??ATRIAL FIB- 79 BPM. ??Atrial fibrillation. ? Stress protocol: ? +--------+--+ + + ? !Stage ?? !HR!BP (mmHg) ?!Comments ? ! ? +--------+--+ + + ? !Baseline!79!171/101 (124)! ! ? +--------+--+ + + ? !1 min ?? !78! !Inject Regadenoson.! ? +--------+--+ + + ? !2 min ?? !86!140/93 (109) ! ! ? +--------+--+ + + ? !3 min ?? !70! ! ! ? +--------+--+ + + ? !4 min ?? !76!171/101 (124)! ! ? +--------+--+ + + ? !5 min ?? !70! ! ! ? +--------+--+ + + ? !6 min ?? !80!155/96 (116) ! ! ? +--------+--+ + + ? !7 min ?? !76! ! ! ? +--------+--+ + + ? * ? Stress results: ??The rate-pressure product for the peak heart rate and ? blood pressure was 55868br Hg/min. ? Stress ECG: ? RESTING LEXISCAN STUDY ? NO CHEST PAIN ? NO ECTOPY ? NO ISCHEMIC ECG CHANGES. ??The stress ECG is negative. ? Myocardial perfusion: ?? Imaging information: gated. The left ventricle ? is mildly dilated. No myocardial perfusion defects noted. ? Ventricular Function (Wall Motion): ?? The left ventricular ? end-systolic volume is 73ml. The calculated left ventricular ejection ? PAGE 2 ? Signed Report ? (CONTINUED) ? fraction after stress: 46%. LV global systolic function is mildly ? reduced. ?? Diffuse left ventricular regional motion abnormalities. ? Study data: ??uSdhakar Fitzgerald MD supervised and was readily available ? during the procedure. This study was interpreted by [facility]. ? Study status: ??Routine. ? Consent: ??The risks, benefits, and alternatives to the procedure were ? explained to the patient and informed consent was obtained. ? Procedure: ??Initial setup. A baseline ECG was recorded. ? Surface ECG leads and manual cuff blood pressure measurements were ? monitored. ? Heart sounds: Normal. ? Lung sounds: Normal. ? Regadenoson stress test. Stress testing was performed, with ? regadenoson by intravenous bolus, for a total dose of 0.4mgover ? 10.00sec, followed by a 5ml saline flush. The infusion was terminated ? due to per protocol. ? Study completion: ??All catheters inserted during the procedure were ? removed. The patient tolerated the procedure well and was discharged ? from the lab. ? Discharge: ??The patient left the laboratory in stable condition. ? Birthdate: ??Patient birthdate: 1955. ? Sex: Gender: male. ? Study date: ??Study date: 07/24/2018. ? Study time: 10:00 AM. ? Signature Documentation: ? - The imaging portion of this study was interpreted by Nuclear ? Business Transformation Consultant Sudhakar Fitzgerald MD. ? - The Stress ECG portion of this study was interpreted by Sudhakar ? MD Amilcar. ? Electronically signed by ? Sudhakar Fitzgerald ? 07/25/2018 16:24 ?Reported By: Sudhakar Fitzgerald MD ? CC: ? Transcribed Date/Time: 07/28/2018 (0907) ? Straightedge Worker: JULIO ? Printed Date/Time: 11/01/2018 (1723) ? PAGE 3 ? Signed Report ? Procedure Note Sudhakar Fitzgerald MD - 12/19/2018 EXAM: NUCLEAR MEDICINE/NUCLEAR STRESS SHONNA EX. D/ (1019) CLINICAL INFORMATION: I25.10 ATHEROSCLEROTIC HEART DISEASE EXAM: NUCLEAR MEDICINE/MYOVIEW DX RN EX. D/ (1019) CLINICAL INFORMATION: EXAM: NUCLEAR MEDICINE/NUCLEAR STRESS SHONNA EX. D/ (1009) CLINICAL INFORMATION: I25.10 ATHEROSCLEROTIC HEART DISEASE OF [place] CORONARY ARTERY WITHOUT ANGINA PECTORIS EXAM: NUCLEAR MEDICINE/MYOVIEW DX RN EX. D/ (1009) CLINICAL INFORMATION: I25.10 ATHEROSCLEROTIC HEART DISEASE OF [place] CORONARY ARTERY WITHOUT ANGINA PECTORIS *[facility]* *[facility]* [address] [place] [address] Myocardial Perfusion Imaging - SPECT Regadenoson Date of study: 07/24/2018 *PATIENT PRESENTATION* Height: 177.8cm (70in) Blood Pressure: Weight: 151.8kg (334lb) BSA: 2.82m S 2 Ordering physician: Coco Sol Impressions: - Normal perfusion by Tc99m Sestamibi Imaging. - Abnormal contraction consistent with cardiomyopathy. Summary: 1. Myocardial perfusion imaging: No myocardial perfusion defects noted. 2. The left ventricular end-systolic volume is 73ml. The calculated left ventricular ejection fraction after stress: 46%. LV global systolic function is mildly reduced. Diffuse left ventricular regional motion abnormalities. 3. Stress ECG conclusions: The stress ECG is negative. 4. Baseline ECG: Atrial fibrillation. Indication: MAGALLANES, Appropriate Use Criteria: A (Appropriate). History: PAGE 1 Signed Report (CONTINUED) PAST 6 MONTHS, SOB WITH EXERTION. NO CHEST PAIN CHRONIC ATRIAL FIB, S/P STROKE. 2011- [place]- STENT X 1( LAD) Risk factors: Family history of coronary artery disease. Hypertension. Obesity. Dyslipidemia. MEDS: SEE ECW. Imaging Technique: Protocol: Regadenoson. Acquisition: Gated SPECT; 1 day - rest/stress. The patient was imaged in the supine position. Attenuation correction used. Isotope administration: - Rest. Tc[99m]-sestamibi. Injection to stress time: 00:45. - Stress. Tc[99m]-sestamibi. 1-2 min before end of exercise Baseline ECG: ATRIAL FIB- 79 BPM. Atrial fibrillation. Stress protocol: +--------+--+ + + !Stage !HR!BP (mmHg) !Comments ! +--------+--+ + + !Baseline!79!171/101 (124)! ! +--------+--+ + + !1 min !78! !Inject Regadenoson.! +--------+--+ + + !2 min !86!140/93 (109) ! ! +--------+--+ + + !3 min !70! ! ! +--------+--+ + + !4 min !76!171/101 (124)! ! +--------+--+ + + !5 min !70! ! ! +--------+--+ + + !6 min !80!155/96 (116) ! ! +--------+--+ + + !7 min !76! ! ! +--------+--+ + + * Stress results: The rate-pressure product for the peak heart rateand blood pressure was 69890km Hg/min. Stress ECG: RESTING LEXISCAN STUDY NO CHEST PAIN NO ECTOPY NO ISCHEMIC ECG CHANGES. The stress ECG is negative. Myocardial perfusion: Imaging information: gated. The leftventricle is mildly dilated. No myocardial perfusion defects noted. Ventricular Function (Wall Motion): The left ventricular end-systolic volume is 73ml. The calculated left ventricularejection PAGE 2 Signed Report (CONTINUED) fraction after stress: 46%. LV global systolic function is mildly reduced. Diffuse left ventricular regional motion abnormalities. Study data: Sudhakar Fitzgerald MD supervised and was readilyavailable during the procedure. This study was interpreted by [facility]. Study status: Routine. Consent: The risks, benefits, and alternatives to the procedurewere explained to the patient and informed consent was obtained. Procedure: Initial setup. A baseline ECG was recorded. Surface ECG leads and manual cuff blood pressure measurements were monitored. Heart sounds: Normal. Lung sounds: Normal. Regadenoson stress test. Stress testing was performed, with regadenoson by intravenous bolus, for a total dose of 0.4mgover 10.00sec, followed by a 5ml saline flush. The infusion wasterminated due to per protocol. Study completion: All catheters inserted during the procedure were removed. The patient tolerated the procedure well and wasdischarged from the lab. Discharge: The patient left the laboratory in stable condition. Birthdate: Patient birthdate: 1955. Sex: Gender: male. Study date: Study date: 07/24/2018. Study time: 10:00 AM. Signature Documentation: - The imaging portion of this study was interpreted by Nuclear Business Transformation Consultant Sudhakar Fitzgerald MD. - The Stress ECG portion of this study was interpreted by Sudhakar Fitzgerald MD. Electronically signed by Sudhakar Fitzgerald 07/25/2018 16:24 Reported By: Sudhakar Fitzgerald MD CC: Transcribed Date/Time: 07/28/2018 (0907) Straightedge Worker: [email or web address] Printed Date/Time: 11/01/2018 (6803) PAGE 3 Signed Report us Coco Sol MD CARDIAC NM ORDERABLES Final Result * NM MYOCARDIAL SPECT (07/25/2018 10:09 EDT) Anatomical Region Laterality Modality Other 07/25/2018 10:0 9 EDT Narrative 07/28/2018 9:07 EDT ? EXAM: NUCLEAR MEDICINE/NUCLEAR STRESS SHONNA EX. D/ (1019) ? CLINICAL INFORMATION: ? I25.10 ATHEROSCLEROTIC HEART DISEASE ? EXAM: NUCLEAR MEDICINE/MYOVIEW DX RN ?EX. D/ (1019) ? CLINICAL INFORMATION: ? EXAM: NUCLEAR MEDICINE/NUCLEAR STRESS SHONNA EX. D/ (1009) ? CLINICAL INFORMATION: ? I25.10 ATHEROSCLEROTIC HEART DISEASE OF [place] ? CORONARY ARTERY WITHOUT ANGINA PECTORIS ? EXAM: NUCLEAR MEDICINE/MYOVIEW DX RN ?EX. D/ (1009) ? CLINICAL INFORMATION: ? I25.10 ATHEROSCLEROTIC HEART DISEASE OF [place] ? CORONARY ARTERY WITHOUT ANGINA PECTORIS ? *[facility]* ? *[facility]* ? [address] ? [place] [address] ? Myocardial Perfusion Imaging - SPECT ? Regadenoson ? Date of study: ??07/24/2018 ? *PATIENT PRESENTATION* ? Height: ? 177.8cm (70in) ? Blood Pressure: ? Weight: ? 151.8kg (334lb) ? BSA: ?2.82m S 2 ? Ordering physician: Coco Sol ? Impressions: ? - Normal perfusion by Tc99m Sestamibi Imaging. ? - Abnormal contraction consistent with cardiomyopathy. ? Summary: ? 1. Myocardial perfusion imaging: No myocardial perfusion defects ?noted. ? 2. The left ventricular end-systolic volume is 73ml. The calculated ?left ventricular ejection fraction after stress: 46%. LV global ?systolic function is mildly reduced. Diffuse left ventricular ?regional motion abnormalities. ? 3. Stress ECG conclusions: The stress ECG is negative. ? 4. Baseline ECG: Atrial fibrillation. ? Indication: ?? MAGALLANES, Appropriate Use Criteria: A (Appropriate). ? History: ? PAGE 1 ? Signed Report ? (CONTINUED) ? PAST 6 MONTHS, SOB WITH EXERTION. ? NO CHEST PAIN ? CHRONIC ATRIAL FIB, S/P STROKE. ? 2010- [place]- STENT X 1( LAD) ? Risk factors: ??Family history of coronary artery disease. ? Hypertension. Obesity. Dyslipidemia. ? MEDS: SEE ECW. ? Imaging Technique: ? Protocol: ??Regadenoson. ? Acquisition: ?? Gated SPECT; 1 day - rest/stress. ?The patient was ? imaged in the supine position. Attenuation correction used. ? Isotope administration: ? - Rest. Tc[99m]-sestamibi. Injection to stress time: 00:45. ? - Stress. Tc[99m]-sestamibi. 1-2 min before end of exercise ? Baseline ECG: ??ATRIAL FIB- 79 BPM. ??Atrial fibrillation. ? Stress protocol: ? +--------+--+ + + ? !Stage ?? !HR!BP (mmHg) ?!Comments ? ! ? +--------+--+ + + ? !Baseline!79!171/101 (124)! ! ? +--------+--+ + + ? !1 min ?? !78! !Inject Regadenoson.! ? +--------+--+ + + ? !2 min ?? !86!140/93 (109) ! ! ? +--------+--+ + + ? !3 min ?? !70! ! ! ? +--------+--+ + + ? !4 min ?? !76!171/101 (124)! ! ? +--------+--+ + + ? !5 min ?? !70! ! ! ? +--------+--+ + + ? !6 min ?? !80!155/96 (116) ! ! ? +--------+--+ + + ? !7 min ?? !76! ! ! ? +--------+--+ + + ? * ? Stress results: ??The rate-pressure product for the peak heart rate and ? blood pressure was 03122fh Hg/min. ? Stress ECG: ? RESTING LEXISCAN STUDY ? NO CHEST PAIN ? NO ECTOPY ? NO ISCHEMIC ECG CHANGES. ??The stress ECG is negative. ? Myocardial perfusion: ?? Imaging information: gated. The left ventricle ? is mildly dilated. No myocardial perfusion defects noted. ? Ventricular Function (Wall Motion): ?? The left ventricular ? end-systolic volume is 73ml. The calculated left ventricular ejection ? PAGE 2 ? Signed Report ? (CONTINUED) ? fraction after stress: 46%. LV global systolic function is mildly ? reduced. ?? Diffuse left ventricular regional motion abnormalities. ? Study data: ??Sudhakar Fitzgerald MD supervised and was readily available ? during the procedure. This study was interpreted by [facility]. ? Study status: ??Routine. ? Consent: ??The risks, benefits, and alternatives to the procedure were ? explained to the patient and informed consent was obtained. ? Procedure: ??Initial setup. A baseline ECG was recorded. ? Surface ECG leads and manual cuff blood pressure measurements were ? monitored. ? Heart sounds: Normal. ? Lung sounds: Normal. ? Regadenoson stress test. Stress testing was performed, with ? regadenoson by intravenous bolus, for a total dose of 0.4mgover ? 10.00sec, followed by a 5ml saline flush. The infusion was terminated ? due to per protocol. ? Study completion: ??All catheters inserted during the procedure were ? removed. The patient tolerated the procedure well and was discharged ? from the lab. ? Discharge: ??The patient left the laboratory in stable condition. ? Birthdate: ??Patient birthdate: 1955. ? Sex: Gender: male. ? Study date: ??Study date: 07/24/2018. ? Study time: 10:00 AM. ? Signature Documentation: ? - The imaging portion of this study was interpreted by Nuclear ? Business Transformation Consultant Sudhakar Fitzgerald MD. ? - The Stress ECG portion of this study was interpreted by Sudhakar ? MD Amilcar. ? Electronically signed by ? Sudhakar Fitzgerald ? 07/25/2018 16:24 ?Reported By: Sudhakar Fitzgerald MD ? CC: ? Transcribed Date/Time: 07/28/2018 (0907) ? Straightedge Worker: [email or web address] ? Printed Date/Time: 11/01/2018 (1723) ? PAGE 3 ? Signed Report ? Procedure Note Sudhakar Fitzgerald MD - 12/19/2018 EXAM: NUCLEAR MEDICINE/NUCLEAR STRESS SHONNA EX. D/ (1019) CLINICAL INFORMATION: I25.10 ATHEROSCLEROTIC HEART DISEASE EXAM: NUCLEAR MEDICINE/MYOVIEW DX RN EX. D/ (1019) CLINICAL INFORMATION: EXAM: NUCLEAR MEDICINE/NUCLEAR STRESS SHONNA EX. D/ (1009) CLINICAL INFORMATION: I25.10 ATHEROSCLEROTIC HEART DISEASE OF [place] CORONARY ARTERY WITHOUT ANGINA PECTORIS EXAM: NUCLEAR MEDICINE/MYOVIEW DX RN EX. D/ (1009) CLINICAL INFORMATION: I25.10 ATHEROSCLEROTIC HEART DISEASE OF [place] CORONARY ARTERY WITHOUT ANGINA PECTORIS *[facility]* *[facility]* [address] [place] [address] Myocardial Perfusion Imaging - SPECT Regadenoson Date of study: 07/24/2018 *PATIENT PRESENTATION* Height: 177.8cm (70in) Blood Pressure: Weight: 151.8kg (334lb) BSA: 2.82m S 2 Ordering physician: Coco Sol Impressions: - Normal perfusion by Tc99m Sestamibi Imaging. - Abnormal contraction consistent with cardiomyopathy. Summary: 1. Myocardial perfusion imaging: No myocardial perfusion defects noted. 2. The left ventricular end-systolic volume is 73ml. The calculated left ventricular ejection fraction after stress: 46%. LV global systolic function is mildly reduced. Diffuse left ventricular regional motion abnormalities. 3. Stress ECG conclusions: The stress ECG is negative. 4. Baseline ECG: Atrial fibrillation. Indication: MAGALLANES, Appropriate Use Criteria: A (Appropriate). History: PAGE 1 Signed Report (CONTINUED) PAST 6 MONTHS, SOB WITH EXERTION. NO CHEST PAIN CHRONIC ATRIAL FIB, S/P STROKE. 2011- [place]- STENT X 1( LAD) Risk factors: Family history of coronary artery disease. Hypertension. Obesity. Dyslipidemia. MEDS: SEE ECW. Imaging Technique: Protocol: Regadenoson. Acquisition: Gated SPECT; 1 day - rest/stress. The patient was imaged in the supine position. Attenuation correction used. Isotope administration: - Rest. Tc[99m]-sestamibi. Injection to stress time: 00:45. - Stress. Tc[99m]-sestamibi. 1-2 min before end of exercise Baseline ECG: ATRIAL FIB- 79 BPM. Atrial fibrillation. Stress protocol: +--------+--+ + + !Stage !HR!BP (mmHg) !Comments ! +--------+--+ + + !Baseline!79!171/101 (124)! ! +--------+--+ + + !1 min !78! !Inject Regadenoson.! +--------+--+ + + !2 min !86!140/93 (109) ! ! +--------+--+ + + !3 min !70! ! ! +--------+--+ + + !4 min !76!171/101 (124)! ! +--------+--+ + + !5 min !70! ! ! +--------+--+ + + !6 min !80!155/96 (116) ! ! +--------+--+ + + !7 min !76! ! ! +--------+--+ + + * Stress results: The rate-pressure product for the peak heart rateand blood pressure was 69838ri Hg/min. Stress ECG: RESTING LEXISCAN STUDY NO CHEST PAIN NO ECTOPY NO ISCHEMIC ECG CHANGES. The stress ECG is negative. Myocardial perfusion: Imaging information: gated. The leftventricle is mildly dilated. No myocardial perfusion defects noted. Ventricular Function (Wall Motion): The left ventricular end-systolic volume is 73ml. The calculated left ventricularejection PAGE 2 Signed Report (CONTINUED) fraction after stress: 46%. LV global systolic function is mildly reduced. Diffuse left ventricular regional motion abnormalities. Study data: Sudhakar Fitzgerald MD supervised and was readilyavailable during the procedure. This study was interpreted by [facility]. Study status: Routine. Consent: The risks, benefits, and alternatives to the procedurewere explained to the patient and informed consent was obtained. Procedure: Initial setup. A baseline ECG was recorded. Surface ECG leads and manual cuff blood pressure measurements were monitored. Heart sounds: Normal. Lung sounds: Normal. Regadenoson stress test. Stress testing was performed, with regadenoson by intravenous bolus, for a total dose of 0.4mgover 10.00sec, followed by a 5ml saline flush. The infusion wasterminated due to per protocol. Study completion: All catheters inserted during the procedure were removed. The patient tolerated the procedure well and wasdischarged from the lab. Discharge: The patient left the laboratory in stable condition. Birthdate: Patient birthdate: 1955. Sex: Gender: male. Study date: Study date: 07/24/2018. Study time: 10:00 AM. Signature Documentation: - The imaging portion of this study was interpreted by Nuclear Business Transformation Consultant Sudhakar Fitzgerald MD. - The Stress ECG portion of this study was interpreted by Sudhakar Fitzgerald MD. Electronically signed by Sudhakar Fitzgerald 07/25/2018 16:24 Reported By: Sudhakar Fitzgerald MD CC: Transcribed Date/Time: 07/28/2018 (0907) Straightedge Worker: [email or web address] Printed Date/Time: 11/01/2018 (1726) PAGE 3 Signed Report us Coco Sol MD IMG NM ORDERABLES Final Res ult * NM CARD SPECT NUCLEAR STRESS (07/25/2018 10:09 EDT) Anatomical Region Laterality Modality Chest Nuclear Stress 07/25/2018 10:0 9 EDT Narrative 07/28/2018 9:07 EDT ? EXAM: NUCLEAR MEDICINE/NUCLEAR STRESS SHONNA EX. D/ (1019) ? CLINICAL INFORMATION: ? I25.10 ATHEROSCLEROTIC HEART DISEASE ? EXAM: NUCLEAR MEDICINE/MYOVIEW DX RN ?EX. D/ (1019) ? CLINICAL INFORMATION: ? EXAM: NUCLEAR MEDICINE/NUCLEAR STRESS SHONNA EX. D/ (1009) ? CLINICAL INFORMATION: ? I25.10 ATHEROSCLEROTIC HEART DISEASE OF [place] ? CORONARY ARTERY WITHOUT ANGINA PECTORIS ? EXAM: NUCLEAR MEDICINE/MYOVIEW DX RN ?EX. D/ (1009) ? CLINICAL INFORMATION: ? I25.10 ATHEROSCLEROTIC HEART DISEASE OF [place] ? CORONARY ARTERY WITHOUT ANGINA PECTORIS ? *[facility]* ? *[facility]* ? [address] ? [place] [address] ? Myocardial Perfusion Imaging - SPECT ? Regadenoson ? Date of study: ??07/24/2018 ? *PATIENT PRESENTATION* ? Height: ? 177.8cm (70in) ? Blood Pressure: ? Weight: ? 151.8kg (334lb) ? BSA: ?2.82m S 2 ? Ordering physician: Coco Sol ? Impressions: ? - Normal perfusion by Tc99m Sestamibi Imaging. ? - Abnormal contraction consistent with cardiomyopathy. ? Summary: ? 1. Myocardial perfusion imaging: No myocardial perfusion defects ?noted. ? 2. The left ventricular end-systolic volume is 73ml. The calculated ?left ventricular ejection fraction after stress: 46%. LV global ?systolic function is mildly reduced. Diffuse left ventricular ?regional motion abnormalities. ? 3. Stress ECG conclusions: The stress ECG is negative. ? 4. Baseline ECG: Atrial fibrillation. ? Indication: ?? SONA, Appropriate Use Criteria: A (Appropriate). ? History: ? PAGE 1 ? Signed Report ? (CONTINUED) ? PAST 6 MONTHS, SOB WITH EXERTION. ? NO CHEST PAIN ? CHRONIC ATRIAL FIB, S/P STROKE. ? 2010- [place]- STENT X 1( LAD) ? Risk factors: ??Family history of coronary artery disease. ? Hypertension. Obesity. Dyslipidemia. ? MEDS: SEE ECW. ? Imaging Technique: ? Protocol: ??Regadenoson. ? Acquisition: ?? Gated SPECT; 1 day - rest/stress. ?The patient was ? imaged in the supine position. Attenuation correction used. ? Isotope administration: ? - Rest. Tc[99m]-sestamibi. Injection to stress time: 00:45. ? - Stress. Tc[99m]-sestamibi. 1-2 min before end of exercise ? Baseline ECG: ??ATRIAL FIB- 79 BPM. ??Atrial fibrillation. ? Stress protocol: ? +--------+--+ + + ? !Stage ?? !HR!BP (mmHg) ?!Comments ? ! ? +--------+--+ + + ? !Baseline!79!171/101 (124)! ! ? +--------+--+ + + ? !1 min ?? !78! !Inject Regadenoson.! ? +--------+--+ + + ? !2 min ?? !86!140/93 (109) ! ! ? +--------+--+ + + ? !3 min ?? !70! ! ! ? +--------+--+ + + ? !4 min ?? !76!171/101 (124)! ! ? +--------+--+ + + ? !5 min ?? !70! ! ! ? +--------+--+ + + ? !6 min ?? !80!155/96 (116) ! ! ? +--------+--+ + + ? !7 min ?? !76! ! ! ? +--------+--+ + + ? * ? Stress results: ??The rate-pressure product for the peak heart rate and ? blood pressure was 45383kw Hg/min. ? Stress ECG: ? RESTING LEXISCAN STUDY ? NO CHEST PAIN ? NO ECTOPY ? NO ISCHEMIC ECG CHANGES. ??The stress ECG is negative. ? Myocardial perfusion: ?? Imaging information: gated. The left ventricle ? is mildly dilated. No myocardial perfusion defects noted. ? Ventricular Function (Wall Motion): ?? The left ventricular ? end-systolic volume is 73ml. The calculated left ventricular ejection ? PAGE 2 ? Signed Report ? (CONTINUED) ? fraction after stress: 46%. LV global systolic function is mildly ? reduced. ?? Diffuse left ventricular regional motion abnormalities. ? Study data: ??Sudhakar Fitzgerald MD supervised and was readily available ? during the procedure. This study was interpreted by [facility]. ? Study status: ??Routine. ? Consent: ??The risks, benefits, and alternatives to the procedure were ? explained to the patient and informed consent was obtained. ? Procedure: ??Initial setup. A baseline ECG was recorded. ? Surface ECG leads and manual cuff blood pressure measurements were ? monitored. ? Heart sounds: Normal. ? Lung sounds: Normal. ? Regadenoson stress test. Stress testing was performed, with ? regadenoson by intravenous bolus, for a total dose of 0.4mgover ? 10.00sec, followed by a 5ml saline flush. The infusion was terminated ? due to per protocol. ? Study completion: ??All catheters inserted during the procedure were ? removed. The patient tolerated the procedure well and was discharged ? from the lab. ? Discharge: ??The patient left the laboratory in stable condition. ? Birthdate: ??Patient birthdate: 1955. ? Sex: Gender: male. ? Study date: ??Study date: 07/24/2018. ? Study time: 10:00 AM. ? Signature Documentation: ? - The imaging portion of this study was interpreted by Nuclear ? Business Transformation Consultant Sudhakar Fitzgerald MD. ? - The Stress ECG portion of this study was interpreted by Sudhakar ? MD Amilcar. ? Electronically signed by ? Sudhakar Fitzgerald ? 07/25/2018 16:24 ?Reported By: Sudhakar Fitzgerald MD ? CC: ? Transcribed Date/Time: 07/28/2018 (0907) ? Straightedge Worker: [email or web address] ? Printed Date/Time: 11/01/2018 (1723) ? PAGE 3 ? Signed Report ? Procedure Note Sudhakar Fitzgerald MD - 12/19/2018 EXAM: NUCLEAR MEDICINE/NUCLEAR STRESS SHONNA EX. D/ (1019) CLINICAL INFORMATION: I25.10 ATHEROSCLEROTIC HEART DISEASE EXAM: NUCLEAR MEDICINE/MYOVIEW DX RN EX. D/ (1019) CLINICAL INFORMATION: EXAM: NUCLEAR MEDICINE/NUCLEAR STRESS SHONNA EX. D/ (1009) CLINICAL INFORMATION: I25.10 ATHEROSCLEROTIC HEART DISEASE OF [place] CORONARY ARTERY WITHOUT ANGINA PECTORIS EXAM: NUCLEAR MEDICINE/MYOVIEW DX RN EX. D/ (1009) CLINICAL INFORMATION: I25.10 ATHEROSCLEROTIC HEART DISEASE OF [place] CORONARY ARTERY WITHOUT ANGINA PECTORIS *[facility]* *[facility]* [address] [place] [address] Myocardial Perfusion Imaging - SPECT Regadenoson Date of study: 07/24/2018 *PATIENT PRESENTATION* Height: 177.8cm (70in) Blood Pressure: Weight: 151.8kg (334lb) BSA: 2.82m S 2 Ordering physician: Sundaran, Preeth Impressions: - Normal perfusion by Tc99m Sestamibi Imaging. - Abnormal contraction consistent with cardiomyopathy. Summary: 1. Myocardial perfusion imaging: No myocardial perfusion defects noted. 2. The left ventricular end-systolic volume is 73ml. The calculated left ventricular ejection fraction after stress: 46%. LV global systolic function is mildly reduced. Diffuse left ventricular regional motion abnormalities. 3. Stress ECG conclusions: The stress ECG is negative. 4. Baseline ECG: Atrial fibrillation. Indication: MAGALLANES, Appropriate Use Criteria: A (Appropriate). History: PAGE 1 Signed Report (CONTINUED) PAST 6 MONTHS, SOB WITH EXERTION. NO CHEST PAIN CHRONIC ATRIAL FIB, S/P STROKE. 2011- [place]- STENT X 1( LAD) Risk factors: Family history of coronary artery disease. Hypertension. Obesity. Dyslipidemia. MEDS: SEE ECW. Imaging Technique: Protocol: Regadenoson. Acquisition: Gated SPECT; 1 day - rest/stress. The patient was imaged in the supine position. Attenuation correction used. Isotope administration: - Rest. Tc[99m]-sestamibi. Injection to stress time: 00:45. - Stress. Tc[99m]-sestamibi. 1-2 min before end of exercise Baseline ECG: ATRIAL FIB- 79 BPM. Atrial fibrillation. Stress protocol: +--------+--+ + + !Stage !HR!BP (mmHg) !Comments ! +--------+--+ + + !Baseline!79!171/101 (124)! ! +--------+--+ + + !1 min !78! !Inject Regadenoson.! +--------+--+ + + !2 min !86!140/93 (109) ! ! +--------+--+ + + !3 min !70! ! ! +--------+--+ + + !4 min !76!171/101 (124)! ! +--------+--+ + + !5 min !70! ! ! +--------+--+ + + !6 min !80!155/96 (116) ! ! +--------+--+ + + !7 min !76! ! ! +--------+--+ + + * Stress results: The rate-pressure product for the peak heart rateand blood pressure was 49090xb Hg/min. Stress ECG: RESTING LEXISCAN STUDY NO CHEST PAIN NO ECTOPY NO ISCHEMIC ECG CHANGES. The stress ECG is negative. Myocardial perfusion: Imaging information: gated. The leftventricle is mildly dilated. No myocardial perfusion defects noted. Ventricular Function (Wall Motion): The left ventricular end-systolic volume is 73ml. The calculated left ventricularejection PAGE 2 Signed Report (CONTINUED) fraction after stress: 46%. LV global systolic function is mildly reduced. Diffuse left ventricular regional motion abnormalities. Study data: Sudhakar Fitzgerald MD supervised and was readilyavailable during the procedure. This study was interpreted by [facility]. Study status: Routine. Consent: The risks, benefits, and alternatives to the procedurewere explained to the patient and informed consent was obtained. Procedure: Initial setup. A baseline ECG was recorded. Surface ECG leads and manual cuff blood pressure measurements were monitored. Heart sounds: Normal. Lung sounds: Normal. Regadenoson stress test. Stress testing was performed, with regadenoson by intravenous bolus, for a total dose of 0.4mgover 10.00sec, followed by a 5ml saline flush. The infusion wasterminated due to per protocol. Study completion: All catheters inserted during the procedure were removed. The patient tolerated the procedure well and wasdischarged from the lab. Discharge: The patient left the laboratory in stable condition. Birthdate: Patient birthdate: 1955. Sex: Gender: male. Study date: Study date: 07/24/2018. Study time: 10:00 AM. Signature Documentation: - The imaging portion of this study was interpreted by Nuclear Business Transformation Consultant Sudhakar Fitzgerald MD. - The Stress ECG portion of this study was interpreted by Sudhakar Fitzgerald MD. Electronically signed by Sudhakar Fitzgerald 07/25/2018 16:24 Reported By: Sudhakar Fitzgerald MD CC: Transcribed Date/Time: 07/28/2018 (0907) Straightedge Worker: [email or web address] Printed Date/Time: 11/01/2018 (7652) PAGE 3 Signed Report us Coco Sol MD CARDIAC NM ORDERABLES Final Result documented in this encounter Visit Diagnoses Not on filedocumented in this encounter Care Teams Licensed Psychologist Manager Relationship Specialty Start Date End Date Emery Goel MD PCP - General 07/23/14 07/15/19 documented as of this encounter
--- OUTSIDE RECORDS SUMMARY | 2024-02-09 12:38 | XMS_ITS | Encounter Summary ---
Author Organization [facility] Address [address] [place] [address] Care Team Providers Care Poultry Offal Icer Name Role Phone Sudhakar Fitzgerald MD Unavailable [phone] Ambrose Luna [facility] Primary Care Provider [phone] Reason for Visit * Reason Comments Follow-up Coronary Artery Disease Encounter Details Date Type Department Care Team (Late st Contact Info) Description 02/25/2021 8:15 EST Office Visit [facility] [address] [place] [address] Sudhakar Fitzgerald MD [address] [facility] [address] [place] [address] S/P coronary artery stent placement (Primary Dx); Permanent atrial fibrillation (HCC-CMS) (HCC); Coronary artery disease involving kashia coronary artery of kashia heart without angina pectoris; Dyslipidemia Social History Tobacco Use Types Packs/Day Years [...] Sign Reading Time Taken Comments Blood Pressure 130/88 02/25/2021 0809 EST Pulse 81 02/25/2021 0809 EST Temperature - - Respiratory Rate - - Oxygen Saturation 98% 02/25/2021 0809 EST Inhaled Oxygen Concentration - - Weight 147 kg (324 lb) 02/25/2021 0809 EST Height 177.8 cm (5' 10) 02/25/2021 0809 EST Body Mass Index 46.49 02/25/2021 0809 EST documented in this encounter Functional Status [...] 07/16/2019 11:13 EDT documented in this encounter Ordered Prescriptions Prescription Sig Dispense Quantity Refills Last Filled Start Date End Date losartan (COZAAR) 50 mg tablet Take 1 Tablet by mouth daily for 90 days. 90 Tablet 3 02/25/2021 05/26/2021 documented in this encounter Progress Notes * Sudhakar Fitzgerald MD - 02/25/2021 0815 EST [facility] FOLLOW-UP Date of Service: 02/25/2021 Reason for Visit: S/P coronary artery stent placement [Z95.5] SUBJECTIVE 65 y.o. year-old man with personal history of DAVEY no tolerating CPAP, CVA, Afib and CAD s/p LAD [id number]. Feeling well. Denies any cardiac s/s. Walks and rows occasionally. Does not feel limited from a cardioplumonary standpoint Sequela from CVA include mild word finding difficulties. No motor deficits. Persistent mild myalgias. Patient denies CP, SOB, PND, edema, palpitations, syncope, focal deficits, bleeding, GI symptoms. Outpatient Medications Marked as Taking for the 02/25/21 encounter (Office Visit) with Sudhakar Fitzgerald MD Medication Sig ??? aspirin chewable 81 mg tablet Take 81 mg by mouth daily. ??? atorvastatin (LIPITOR) 10 mg tablet Take 10 mg by mouth daily. Tuesday, Tuesday, Tuesday - 10mg ??? dilTIAZem (CARDIZEM CD) 120 mg capsule Take 1 Cap by mouth daily. ??? doxazosin (CARDURA) 4 mg tablet TK 1 T PO QD ??? ELIQUIS 5 mg tablet Take 5 mg by mouth 2 times daily. ??? hydroCHLOROthiazide (HYDRODIURIL) 25 mg tablet Take by mouth daily. ??? losartan (COZAAR) 50 mg tablet Take 50 mg by mouth daily. ??? nitroGLYCERIN (NITROSTAT) 0.[address] under the tongue. Allergies: Lansoprazole, Metoprolol, and Simvastatin Social Hx: Nonsmoker. No alcohol. ROS: Pertinent positives and negatives mentioned above. OBJECTIVE Wt Readings from Last 3 Encounters: 02/25/21 (!) 147 kg (324 lb) 01/28/20 (!) 143 kg (315 lb 4.8 oz) 07/16/19 (!) 135.4 kg (298 lb 9.6 oz) BP Readings from Last 3 Encounters: 02/25/21 130/88 01/28/20 (!) 132/94 07/16/19 118/82 Pulse Readings from Last 3 Encounters: 02/25/21 81 01/28/20 57 07/16/19 90 Physical Exam GENERAL: Pleasant, no acute distress. HEENT: Anicteric. NECK: Supple, no obvious neck vein distention but difficult to assess due to body habitus. CHEST: Nontender. LUNGS: Clear to auscultation bilaterally, no rhonchi rales or wheezes. HEART: Regular rate and irregular rhythm, normal S1-S2, no murmurs. EXTREM: No clubbing, cyanosis, edema, equal pulses. SKIN: Warm and dry, no rashes. NEURO: Alert and oriented x3, grossly intact Diagnostic Data Available records including laboratory and cardiac studies reviewed. Pertinent findings as mentioned in HPI and as follows: Lab Results Component Value Date CREATININE 1.12 01/28/2020 BUN 27 (H) 01/28/2020 NA 140 01/28/2020 K 4.3 01/28/2020 MG 1.90 01/28/2020 Lab Results Component Value Date HGB 15.6 01/28/2020 Lab Results Component Value Date CHOL 143 01/28/2020 HDL 37 (L) 01/28/2020 LDL 83 01/28/2020 TRIG 114 01/28/2020 No results found for: HGBA1C, TSH NM stress test 2019: Normal perfusion. Diffuse hypokinesis,EF 46% ASSESSMENT CAD s/p LAD PCI. Normal perfusion but abnormal contraction w/ EF of 46% in 2019 - low risk of cardiac events. No angina or heart failure. HLP. On statin. Reasonable lipid profile last year considering low dose statin HTN. Controlled. Permanent Afib. Rate controlled. Anti-coagulated, no bleeding. PLAN ?? I did not make any medication changes today. ?? Blood work today; if LDL > 100 will add Zetia rather than increasing his Lipitor to avoid worsening myalgias Follow-up 1 year, no testing; patient advised to call for lab results Sudhakar Fitzgerald MD, PhD Other Orders Placed This Visit Procedures ??? Lipid Profile (Includes Cholesterol, Triglycerides, HDL, LDL) ??? Complete Blood Count and Differential ??? Comprehensive Metabolic Panel (CMP) ??? Thyroid [place] ??? Magnesium Medications Discontinued During This Visit Medication Reason ??? lisinopriL (PRINIVIL) 40 mg tablet Side effects ??? losartan (COZAAR) 50 mg tablet Reorder documented in this encounter Plan of Treatment Upcoming Encounters Date Type Department Care Team (Late st Contact Info) Description 03/14/2024 8:15 EST Office Visit [facility] [address] [place] [address] Sudhakar Fitzgerald MD [address] [place] [address] [address] [place] [id number] documented as of this encounter Results * MAGNESIUM (02/25/2021 8:55 EST) Magnesium 1.9 1.7 - 2.8 mg/dL 02/25/2021 10:07 EST [facility] Blood VENOUS BLOOD / Unknown Venipuncture / Unknown 02/25/2021 8:55 EST 02/25/2021 9:27 EST us Sudhakar Fitzgerald MD CHEMISTRY & BLOOD GAS ORDERABL ES Final Result [facility] [address] [place] [address] * THYROID CASCADE (02/25/2021 8:55 EST) TSH 1.56 0.47 - 4.68 ??IU/mL 02/25/2021 10:41 [facility] Blood VENOUS BLOOD / Unknown Venipuncture / Unknown 02/25/2021 8:55 EST 02/25/2021 9:27 EST [facility] - 02/25/2021 10:41 EST NOTE: The results of this assay can be falsely lowered due to the consumption of Biotin. us Sudhakar Fitzgerald MD CHEMISTRY & BLOOD GAS ORDERABL ES Final Result [facility] [address] [place] [address] * (ABNORMAL) COMPREHENSIVE METABOLIC PANEL (CMP) (02/25/2021 8:55 EST) Sodium 142 136 - 145 mmol/L 02/25/2021 10:07 [facility] Potassium 4.0 3.5 - 5.0 mmol/L 02/25/2021 10:07 [facility] Chloride 102 96 - 110 mmol/L 02/25/2021 10:07 [facility] CO2 Total 32 22 - 32 mmol/L 02/25/2021 10:07 [facility] Glucose 109(H) 70 - 100 mg/dL 02/25/2021 10:07 [facility] BUN 19 10 - 26 mg/dL 02/25/2021 10:07 [facility] Creatinine 1.11 0.66 - 1.25 mg/dL 02/25/2021 10:07 [facility] eGFR 68 >60 mL/min/1.7 3m2 02/25/2021 10:07 [facility] Total Protein 7.6 6.3 - 8.2 g/dL 02/25/2021 10:07 [facility] Albumin 4.3 3.4 - 4.9 g/dL 02/25/2021 10:07 [facility] Alkaline Phosphatase 101 38 - 126 U/L 02/25/2021 10:07 [facility] AST 29 15 - 46 U/L 02/25/2021 10:07 [facility] ALT 26 <50 U/L 02/25/2021 10:07 [facility] Bilirubin, Total 0.6 <1.4 mg/dL 02/25/19 10:07 [facility] Calcium 9.3 8.5 - 10.5 mg/dL 02/25/2021 10:07 [facility] Albumin/Globulin Ratio 1.3 1.0 - 2.5 02/25/2021 10:07 [facility] Anion Gap 8 8 - 16 02/25/2021 10:07 [facility] Blood VENOUS BLOOD / Unknown Venipuncture / Unknown 02/25/2021 8:55 EST 02/25/2021 9:27 EST us Sudhakar Fitzgerald MD CHEMISTRY & BLOOD GAS ORDERABL ES Final Result [facility] [address] [place] [address] * (ABNORMAL) COMPLETE BLOOD COUNT AND DIFFERENTIAL (02/25/2021 8:55 EST) WBC 9.28 4.00 - 10.40 K/cmm 02/25/2021 10:00 [facility] RBC 5.40 4.36 - 5.78 M/cmm 02/25/2021 10:00 [facility] Hemoglobin 16.3 13.8 - 17.3 gm/dL 02/25/2021 10:00 [facility] HCT 48.4 39.5 - 50.2 % 02/25/2021 10:00 [facility] MCV 90 81 - 95 fl 02/25/2021 10:00 [facility] MCH 30.2 27.6 - 33.0 pg 02/25/2021 10:00 [facility] MCHC 33.7 32.8 - 36.4 gm/dL 02/25/2021 10:00 [facility] RDW-CV 14.8(H) <14.2 % 02/25/2021 10:00 [facility] RDW-SD 49.2(H) <46.0 fl 02/25/2021 10:00 [facility] PLT 301 141 - 377 K/cmm 02/25/2021 10:00 [facility] MPV 11.1 9.5 - 12.7 fl 02/25/2021 10:00 [facility] % Neutrophils 64.8 % 02/25/2021 10:00 [facility] % Lymphocytes 25.3 % 02/25/2021 10:00 [facility] % Monocytes 7.5 % 02/25/2021 10:00 [facility] % Eosinophils 1.3 % 02/25/2021 10:00 [facility] % Basophils 0.8 % 02/25/2021 10:00 [facility] % Immature Grans 0.3 % 02/25/19 10:00 [facility] Absolute Neutrophils 6.01 2.20 - 8.85 K/cmm 02/25/2021 10:00 [facility] Absolute Lymphocytes 2.35 1.09 - 3.30 K/cmm 02/25/2021 10:00 [facility] Absolute Monocytes 0.70 0.10 - 0.80 K/cmm 02/25/2021 10:00 [facility] Absolute Eosinophils 0.12 0.03 - 0.61 K/cmm 02/25/2021 10:00 [facility] ABS Basophils 0.07 0.01 - 0.11 K/cmm 02/25/2021 10:00 [facility] Absolute Immature Grans 0.03 0.00 - 0.06 K/cmm 02/25/2021 10:00 [facility] Type of Differential: Auto 02/25/2021 10:00 [facility] Blood VENOUS BLOOD / Unknown Venipuncture / Unknown 02/25/2021 8:55 EST 02/25/2021 9:58 EST us Sudhakar Fitzgerald MD PACKAGES & DNA PROBE ORDERABLE S Final Result [facility] [address] [place] [id number] * LIPID PROFILE (INCLUDES CHOLESTEROL, TRIGLYCERIDES, HDL, LDL) (02/25/2021 8:55 EST) Cholesterol 165 See Note mg/dL 02/25/2021 10:07 [facility] Comment: Acceptable: ?<200 mg/dL Borderline High: 200-239 mg/dL High: ?> or = 240 mg/dL HDL 38 See Note mg/dL 02/25/2021 10:07 [facility] Comment: Low: ? <40 mg/dL Normal: ??40-60 mg/dL High: ?>60 mg/dL LDL, Calculated 102 See Note mg/dL 02/25/2021 10:07 [facility] Comment: Optimal: ? <100 mg/dL Near Optimal: ?100-129 mg/dL Borderline High: 130-159 mg/dL High: ?160-189 mg/dL Very High: ? > or = 190 mg/dL Triglyceride 125 See Note mg/dL 02/25/2021 10:07 [facility] Comment: Normal: ? <150 mg/dL Borderline High: ??150 - 199 mg/dL High: ? 200 - 499 mg/dL Very High: ?> or = 500 mg/dL Chol/HDL Ratio 4.3 See Note 02/25/2021 10:07 [facility] Comment: NOTE: Desirable Ratio = <4.1 Patient At Risk Ratio = >5.0(Males) ?>6.0(Females) Non HDL Cholesterol 127 See Note mg/dL 02/25/2021 10:07 EST [facility] Comment: Desirable: ?<130 mg/dL Borderline High: ??130-159 mg/dL High: ? 160-189 mg/dL Very High: ?> or = 190 mg/dL Blood VENOUS BLOOD / Unknown Venipuncture / Unknown 02/25/2021 8:55 EST 02/25/2021 9:27 EST us Sudhakar Fitzgerald MD CHEMISTRY & BLOOD GAS ORDERABL ES Final Result [facility] [address] [place] [address] documented in this encounter Visit Diagnoses Diagnosis S/P coronary artery stent placement- Primary Postsurgical percutaneous transluminal coronary angioplasty status Permanent atrial fibrillation ([facility]-CMS) Atrial fibrillation Coronary artery disease involving kashia coronary artery of kashia heart without angina pectoris Dyslipidemia Other and unspecified hyperlipidemia documented in this encounter Discontinued Medications Medication Sig Discontinue Reason Start Date End Da te lisinopriL (PRINIVIL) 40 mg tablet Take 20 mg by mouth daily. Side effects 06/16/2019 02/25/2021 losartan (COZAAR) 50 mg tablet Take 50 mg by mouth daily. Reorder 02/17/2021 02/25/2021 documented as of this encounter Historical Medications * This list may reflect changes made after this encounter. losartan (COZAAR) 50 mg tablet Take 50 mg by mouth daily. 02/17/2021 02/25/2021 added in this encounter Care Teams Poultry Offal Icer Relationship Specialty Start Date End Date Ambrose Luna RPA [address] [facility] [address] [place] [id number] PCP - General Family Medicine - Primary Care 02/15/20 Sudhakar Fitzgerald MD [address] [facility] [address] [place] [address] Cardiovascular Disease 02/25/21 documented as of this encounter
--- OUTSIDE RECORDS SUMMARY | 2024-02-09 12:38 | XMS_ITS | Encounter Summary ---
Author Organization [facility] [place] [address] Care Team Providers Care Joy Operator Helper Name Role Phone Ambrose Luna Primary Care Provider [phone] Encounter Details Date Type Department Care Team (Latest Contact Info) Description 03/12/2022 Travel Social History Tobacco Use Types Packs/Day Years Used Date Smoking Tobacco: Never Smokeless Tobacco: Never Alcohol Use Standard Drinks/Week Comments Yes 1 [...] on filedocumented in this encounter Care Teams Joy Operator Helper Relationship Specialty Start Date End Date Ambrose Luna PA [address] [place], [place] [id number] PCP - General Internal Medicine 03/12/22 documented as of this encounter
--- OUTSIDE RECORDS SUMMARY | 2024-02-09 12:38 | XMS_ITS | Encounter Summary ---
Author Organization [facility] Address [address] [place] [address] Care Team Providers Care School Lunch Manager Name Role Phone Seng Olsen [facility] Primary Care Provider [phone] Reason for Visit * Reason Comments Coronary Artery Disease 6 mos f/u; frmr Titi Encounter Details Date Type Department Care Team (Late st Contact Info) Description 01/28/2020 8:45 EST Office Visit [facility] Cardiology Clinic [address], [place] [id number] Sudhakar Fitzgerald MD [address] [facility] [address] [place] [address] Coronary artery disease involving bois forte coronary artery of bois forte heart without angina pectoris (Primary Dx); Permanent atrial fibrillation ([facility]) Social History Tobacco Use Types Packs/Day Years [...] Sign Reading Time Taken Comments Blood Pressure 132/94 01/28/2020 0834 EST Pulse 57 01/28/2020 0834 EST Temperature - - Respiratory Rate - - Oxygen Saturation 96% 01/28/2020 0834 EST Inhaled Oxygen Concentration - - Weight 143 kg (315 lb 4.8 oz) 01/28/2020 0834 ES T Height 177.8 cm (5' 10) 01/28/2020 0834 EST Body Mass Index 45.24 01/28/2020 0834 EST documented in this encounter Functional Status [...] Progress Notes * Sudhakar Fitzgerald MD - 01/28/2020 0845 EST [facility] CARDIOLOGY FOLLOW-UP VISIT Date of Service: 01/28/2020 Reason for Visit: Coronary artery disease involving bois forte coronary artery of bois forte heart without angina pectoris [I25.10] Primary Care Provider: Seng Chand SUBJECTIVE Patient ID: Issac [place], 1955 HPI 64 y.o. year-old male with DAVEY no tolerating CPAP, CVA, Afib and CAD s/p LAD PCI 2010. Feeling well. Denies any cardiac s/s. Using the rower for 15 - 30 min 3 times per week. Does not feel limited from a cardioplumonary standpoint Sequela from CVA include mild word finding difficulties. No motor deficits. Patient denies CP, SOB, PND, edema, palpitations, syncope, claudication, focal deficits, bleeding, GI symptoms. PFSH: Reviewed; pertinent history as mentioned above. Medications and allergies: Reviewed. ROS: A 10 point review of systems performed; pertinent positives as mentioned above, all others negative. OBJECTIVE Physical Exam Wt Readings from Last 3 Encounters: 01/28/20 (!) 143 kg (315 lb 4.8 oz) 07/16/19 (!) 135.4 kg (298 lb 9.6 oz) BP Readings from Last 3 Encounters: 01/28/20 (!) 132/94 07/16/19 118/82 Pulse Readings from Last 3 Encounters: 01/28/20 57 07/16/19 90 GENERAL: Pleasant, no acute distress. HEENT: Anicteric. [...] NEURO: Alert and oriented x3, grossly intact Data Available records including laboratory and cardiac studies reviewed. Pertinent findings as mentioned in HPI and as follows: NM stress test 2019: Normal perfusion. Diffuse hypokinesis,EF 46% ASSESSMENT CAD s/p LAD PCI. Normal perfusion but abnormal contraction w/ EF of 46% in 2019 - low risk of cardiac events. No angina or heart failure. HLP. On statin for secondary prevention. No up to date lipid profile. HTN. Controlled. Permanent Afib. Rate controlled. Anti-coagulated, no bleeding. PLAN ?? I did not make any medication changes today. ?? Blood work today Follow-up 1 year, no testing; patient advised to call for lab results Sudhakar Fitzgerald MD, PhD Other Orders Placed This Visit Procedures ??? Complete Blood Count and Differential ??? Lipid Profile (Includes Cholesterol, Triglycerides, HDL, LDL) ??? Magnesium ??? Comprehensive Metabolic Panel (CMP) PAST MEDICAL HISTORY PAST SURGICAL HISTORY Past Medical History: Diagnosis Date ??? CVA (cerebral vascular accident) ([facility]) Past Surgical History: Procedure Laterality Date ??? CORONARY ANGIOPLASTY WITH STENT PLACEMENT 2010 LAD MEDICATIONS ALLERGIES Current Outpatient Medications Medication ??? aspirin chewable 81 mg tablet ??? atorvastatin (LIPITOR) 10 mg tablet ??? doxazosin (CARDURA) 4 mg tablet ??? ELIQUIS 5 mg tablet ??? hydroCHLOROthiazide (HYDRODIURIL) 25 mg tablet ??? lisinopriL (PRINIVIL) 40 mg tablet ??? metoprolol XL (TOPROL-XL) 50 mg tablet ??? nitroGLYCERIN (NITROSTAT) 0.4 mg SL tablet No current facility-administered medications for this visit. Allergies Allergen Reactions ??? Lansoprazole Other reaction(s): hives ??? Simvastatin Muscle Aches FAMILY HISTORY SOCIAL HISTORY No family history on file. Social History Tobacco Use ??? Smoking status: Never Smoker ??? Smokeless tobacco: Never Used Substance Use Topics ??? Alcohol use: Not on file ??? Drug use: Not on file * Jessica Man - 01/28/2020 0845 EST Note faxed to PCP documented in this encounter Plan of Treatment Upcoming Encounters Date Type Department Care Team (Late st Contact Info) Description 03/14/2024 8:[address] [facility] Cardiology Clinic [address] [place] [address] Sudhakar Fitzgerald MD [address] [facility] [address] [place] [address] documented as of this encounter Procedures Procedure Name Priority Date/Time Associated Diagnosis Comments COMPLETE BLOOD COUNT WITH DIFFERENTIAL (AUTO) Routine 01/28/2020 9:20 EST Coronary artery disease involving bois forte coronary artery of bois forte heart without angina pectoris MAGNESIUM Routine 01/28/2020 9:20 EST Coronary artery disease involving bois forte coronary artery of bois forte heart without angina pectoris LIPID PROFILE (INCLUDES CHOLESTEROL, TRIGLYCERIDES, HDL, LDL) Routine 01/28/2020 9:20 EST Coronary artery disease involving bois forte coronary artery of bois forte heart without angina pectoris COMPREHENSIVE METABOLIC PANEL (CMP) Routine 01/28/2020 9:20 EST Coronary artery disease involving bois forte coronary artery of bois forte heart without angina pectoris documented in this encounter Results * MAGNESIUM (01/28/2020 9:20 EST) Magnesium 1.90 1.7 - 2.8 mg/dL 01/28/2020 10:[address] [facility] 01/28/2020 9:20 EST 01/28/2020 9:[address] [facility] - 01/28/2020 10:07 EST Does PT Have a Latex Allergy? NO us Sudhakar Fitzgerald MD CHEMISTRY & BLOOD GAS ORDERABL ES Final Result [facility] [address] [place] [address] * (ABNORMAL) LIPID PROFILE (INCLUDES CHOLESTEROL, TRIGLYCERIDES, HDL, LDL) (01/28/2020 9:20 EST) Triglyceride 114 <150 mg/dL 01/28/2020 10:07 [facility] Comment: Adult: Normal: ?<150 mg/dl ? Borderline High: 150-199 mg/dl ? High: ?200-499 mg/dl ? Very High: >ny=393 Cholesterol 143 <200 mg/dL 01/28/2020 10:07 [facility] Comment: Acceptable: ??<200 Borderline: ??200-239 High: ?> or = 240 Chol/HDL Ratio 3.8 0 - 5.0 01/28/2020 10:07 [facility] Comment: DESIRABLE RATIO IS LESS THAN 4.1 PATIENTS ARE CONSIDERED AT RISK: WOMEN RATIO >5 MEN RATIO >6 FASTING? - [facility] Yes 0 9:20 [facility] HDL 37(L) 40 - 60 mg/dL 01/28/2020 10:07 [facility] Comment: ?? Reference Range Low: ? < 40 ??mg/dL Normal: ??40-60 mg/dL High: ?>= 60 mg/dL LDL CHOLESTEROL - [facility] 83 60 - 100 mg/dL 01/28/2020 10:07 [facility] Non HDL Cholesterol 106 mg/dl 01/28/2020 10:07 [facility] Comment: Desirable: ?Less than 130 Borderline High: ??130-159 High: ? 160-189 Very High: ?Greater than or equal to 190 01/28/2020 9:20 EST 01/28/2020 9:[address] [facility] - 01/28/2020 10:07 EST Does PT Have a Latex Allergy? NO us Sudhakar Fitzgerald MD CHEMISTRY & BLOOD GAS ORDERABL ES Final Result [facility] [address] [place] [address] * (ABNORMAL) COMPREHENSIVE METABOLIC PANEL (CMP) (01/28/2020 9:20 EST) Albumin % 4.1 3.4 - 4.9 g/dL 01/28/2020 10:07 [facility] ALKALINE PHOSPHATASE - [facility] 103 38 - 126 U/L 01/28/2020 10:07 [facility] BILIRUBIN TOTAL 0.8 0.2 - 1.3 mg/dL 01/28/2020 10:07 [facility] BUN - [facility] 27(H) 10 - 26 mg/dL 01/28/2020 10:07 [facility] CALCIUM - [facility] 9.4 8.5 - 10.5 mg/dL 01/28/2020 10:07 [facility] Chloride 105 96 - 110 mmol/L 01/28/2020 10:07 [facility] CO2 Total 26 21 - 32 mEq/L 01/28/2020 10:07 [facility] CREATININE 1.12 0.66 - 1.25 mg/dL 01/28/2020 10:07 [facility] eGFR >60 01/28/2020 10:07 [facility] Comment: Chronic renal impairment is defined as GFR <60 Multiply result by 1.210 for patients. Anion Gap 9 0 - 18 01/28/2020 10:07 [facility] GLUCOSE - [facility] 106(H) 70 - 100 mg/dL 01/28/2020 10:07 [facility] Potassium 4.3 3.5 - 5.0 mEq/L 01/28/2020 10:07 [facility] Sodium 140 136 - 145 mEq/L 01/28/2020 10:07 [facility] TOTAL PROTEIN - [facility] 7.6 6.2 - 8.2 gm/dL 01/28/2020 10:07 [facility] SGOT/AST - [facility] 28 17 - 59 U/L 01/28/2020 10:07 [facility] SGPT/ALT - [facility] 29 0 - 50 U/L 0 10:07 [facility] 01/28/2020 9:20 EST 01/28/2020 9:20 EST [facility] - 01/28/2020 10:07 EST Does PT Have a Latex Allergy? NO us Sudhakar Fitzgerald MD CHEMISTRY & BLOOD GAS ORDERABL ES Final Result [facility] [address] [place] [address] * (ABNORMAL) COMPLETE BLOOD COUNT WITH DIFFERENTIAL (AUTO) (01/28/2020 9:20 EST) ABSOLUTE NEUTROPHIL COUN - [facility] 7.2 2.2 - 8.85 10e3/uL 01/28/2020 10:04 [facility] BASO # - [facility] 0.08 0.01 - 0.11 10e/uL 01/28/2020 10:04 [facility] BASO % - [facility] 1 0 - 2 % 01/28/2020 10:04 [facility] EOS # - [facility] 0.17 0.03 - 0.61 10e3/ul 01/28/2020 10:04 [facility] EOS % - [facility] 2 0 - 5 % 01/28/2020 10:04 [facility] GRAN % - [facility] 66.7 40 - 80 % 01/28/2020 10:04 [facility] HEMATOCRIT - [facility] 47.4 39.5 - 50.2 % 01/28/2020 10:04 [facility] HEMOGLOBIN - [facility] 15.6 13.8 - 17.3 g/dl 01/28/2020 10:04 [facility] IG# - [facility] 0.03 0 - 0.7 10e3/uL 01/28/2020 10:04 [facility] IG% - [facility] 0.3 0 - 0.9 % 01/28/2020 10:04 [facility] LYMPH # - [facility] 2.6 1.09 - 3.3 10e3/ul 01/28/2020 10:04 [facility] LYMPH% - [facility] 24.5 20 - 40 % 01/28/2020 10:04 [facility] MEAN CORPUSCULAR HGB - [facility] 29.6 27.6 - 33.0 pg 01/28/2020 10:04 [facility] MEAN CORPUSCULAR HGB CONC - [facility] 32.9 32.8 - 36.4 g/dL 01/28/2020 10:04 [facility] MEAN CELL VOLUME - [facility] 89.9 81 - 95 fl 01/28/2020 10:04 [facility] MONO # - [facility] 0.7 0.1 - 0.8 10e3/uL 01/28/2020 10:04 [facility] MONO% - [facility] 6.2 0 - 12 % 01/28/2020 10:04 [facility] PLATELET COUNT 246 141 - 377 10e3/ul 01/28/2020 10:04 [facility] RED BLOOD COUNT - [facility] 5.27 4.36 - 5.78 10e3/ul 01/28/2020 10:04 [facility] RED CELL DISTRI WIDTH - [facility] 14.3 <14.2 % 01/28/2020 10:04 [facility] WHITE BLOOD COUNT - [facility] 10.7(H) 4.0 - 10.4 10e3/ul 01/28/2020 10:04 [facility] 01/28/2020 9:20 EST 01/28/2020 9:20 [facility] - 01/28/2020 10:04 EST Does PT Have a Latex Allergy? NO us Sudhakar Fitzgerald MD HEMATOLOGY & PF4 ORDERABLES Fi nal Result [facility] [address] [place] [address] documented in this encounter Visit Diagnoses Diagnosis Coronary artery disease involving bois forte coronary artery of bois forte heart without angina pectoris- Primary Permanent atrial fibrillation (HCC-CMS) Atrial fibrillation documented in this encounter Care Teams School Lunch Manager Relationship Specialty Start Date End Date Seng Olsen, [facility] [address] [place] [address] PCP - General 07/16/19 02/14/20 documented as of this encounter
--- OUTSIDE RECORDS SUMMARY | 2024-02-09 12:38 | XMS_ITS | Encounter Summary ---
Author Organization [facility] [place] [address] Care Team Providers Care Voice Network Administrator Name Role Phone Unknown Primary Care Provider Unavailabl e Reason for Visit * Reason Comments Eye Problem Encounter Details Date Type Department Care Team (Latest Contact Info) Description 02/14/2022 Unscheduled [place] [address] Vivian Staples MD [facility] [place] [address] Vitreous hemorrhage of left eye (Primary Dx) Social History Tobacco Use Types Packs/Day Years Used Date Smoking Tobacco: Never Assessed Sex and Gender Information Value Date Recorded Sex Assigned at Not on file Gender Identity Not on file Sexual Orientation Not on file documented as of this encounter Progress Notes * Vivian Staples MD - 02/14/2022 4:23 PM EST vitAssessment/Plan: Encounter Diagnosis Name Primary? Vitreous hemorrhage of left eye Yes Issac [place] is a 66 y.o. male seen urgently in DOC clinic with the following ophthalmic problems: Vitreous hemorrhage OS In setting of recent new onset flashes of light, so possibly related to PVD. Patient also takes eliquis. View to posterior segment too poor to evaluate for RT, but no overt noted on B-scan. Findings and concerns discussed with Issac and they expressed understanding. Follow up: Tuesday02/19/21 with NNB Vivian Staples MD [facility] Ophthalmology PGY2 [id number] I saw the patient with the following level of supervision from the attending: Oversight from Dr. Cedillo. * Sherwin Cedillo MD - 02/14/2022 4:23 PM EST I discussed the patient and reviewed the tests with the resident and I agree with the assessment and plan as written. documented in this encounter Plan of Treatment Pending Results Name Type Priority Associated Diagnoses Date /Time US B-Scan - OS - Left Eye Ophthalmology Routine Vitreous hemorrhage of left eye 02/14/2022 7:12 PM EST documented as of this encounter Procedures Procedure Name Priority Date/Time Associated Diagnosis Comments US B-SCAN - OS - LEFT EYE Routine 02/14/2022 7:12 PM EST Vitreous hemorrhage of left eye documented in this encounter Visit Diagnoses Diagnosis Vitreous hemorrhage of left eye- Primary Vitreous hemorrhage documented in this encounter Care Teams Voice Network Administrator Relationship Specialty Start Date End Date Unknown None PCP - General 02/14/19 03/11/22 documented as of this encounter
--- OUTSIDE RECORDS SUMMARY | 2024-02-09 12:38 | XMS_ITS | Encounter Summary ---
Author Organization [facility] Address [address] [place] [address] Care Team Providers Care Mri Technologist Name Role Phone Sudhakar Fitzgerald MD Unavailable [phone] Ambrose Luna [facility] Primary Care Provider [phone] Encounter Details Date Type Department Care Team (Late st Contact Info) Description 05/12/2020 Lab Requisition [facility] Pathology & Laboratory Medicine - [address] [id number] Outr Resulting Lab, Provider Social History Tobacco [...] Info) Description 03/14/2024 8:15 EST Office Visit [facility] Cardiology Clinic [address] [place] [address] [place] [address] Sudhakar Fitzgerald MD [address] [facility] [address] [place] [address] documented as of this encounter Procedures Procedure Name Priority Date/Time Associated Diagnosis Comments PSA TOTAL, DIAGNOSTIC Routine 05/12/2020 10:40 EDT documented in this encounter Results * PSA TOTAL, DIAGNOSTIC (05/12/2020 10:40 EDT) PSA 3.2 0.0 - 4.5 ng/mL 05/12/2020 22:07 EDT [facility] Blood VENOUS BLOOD / Unknown 05/12/2020 10:40 EDT 05/12/2020 21:14 EDT Narrative [facility] - 05/12/2020 22:07 EDT NOTE: Serum PSA concentration should not be interpreted as absolute evidence for the presence or absence of malignant disease. Assayed on Siemens [employer] XPT using chemiluminescent technology.??Values obtained by using different assay methods cannot be used interchangeably. us Provider Outr Resulting Lab CHEMISTRY & BLOOD GA S ORDERABLES Final Result [facility] [address] [place] [address] documented in this encounter Visit Diagnoses Not on filedocumented in this encounter Care Teams Mri Technologist Relationship Specialty Start Date End Date Ambrose Luna RPA [address] [place] [id number] PCP - General Family Medicine - Primary Care 02/15/20 Sudhakar Fitzgerald MD [address] [place], [place] [address] [address] [place] [address] Cardiovascular Disease 02/25/21 documented as of this encounter
--- OUTSIDE RECORDS SUMMARY | 2024-02-09 12:38 | XMS_ITS | Encounter Summary ---
Author Organization [facility] [place] [address] Care Team Providers Care Personal Carer Name Role Phone Ambrose Luna Primary Care Provider [phone] Reason for Visit * Auth/Cert (Routine) Specialty Diagnoses / Procedures Referred By Silva vincent Referred To Contact Diagnoses Vitreous hemorrhage, left eye Vitreous hemorrhage, left eye Procedures PRO VITRECTOMY,FOCAL LASER RX RETINA VITRECTOMY, PARS PLANA, LASER (WRVU 13.2) Michael Irizarry MD [facility] Referral ID Status Reason Start Date Expiration Date Visits Re quested Visits Authorized [id number] 1 1 Encounter Details Date Type Department Care Team (Late st Contact Info) Description 03/15/2022 12:55 PM EST Anesthesia Event [place] [address] Michael Martinez MD [facility] [place] [address] Anesthesia Record Procedure Summary Procedure Name Responsible Anesthesiologist Anesthesia Start Time Anesthesia Stop Time VITRECTOMY, PARS PLANA, LASER (WRVU 13.2) (Left: Eye) Michael Martinez MD 03/15/22 1255 03/15/22 1441 Events Date Time Event Comment 03/15/2022 1232 1254 AN Verify 1255 Start 1255 An Start Data 1259 Anesthesia Ready 1431 Break/Relief In I assumed ca re for Break Relief before which we: 1. Identified the patient 2. Identified the responsible provider(s) 3. Reviewed the pertinent medical history 4. Discussed the surgical plan and course 5. Reviewed intra-op anesthesia management and issues during anesthesia 6. Set expectations for the relief (and/or post-procedure) period 7. Allowed opportunity for questions and acknowledgement of understanding LYLA Cartagena 1441 an stop data 1441 Recovery or ICU Handoff Tawana ent care was transferred to the destination unit staff after review of the patient's medical history, current anesthetic/surgical status and plan, according to the Provider Handoff Checklist. 1441 Stop Meds Name Total Propofol 70 mg Propofol INF 88.2 mg Dexmedetomidine 16 mcg lactated ringers infusion 400 mL * Agents Name O2 O2 Auxiliary Flowmeter 1 * Blood No blood administrations on file. Lines, Drains, and Airways Type Details Placement Removal Incision 03/15/22; 1310 03/15/22 1310 by Shanta Castellon, NAVJOT Incision 03/15/22; 1331; Left ; eye; dressing: eye pad, eye shield, paper tape 03/15/22 1331 by Shanta Castellon, NAVJOT (RETIRED) Peripheral IV Line - Single Lumen 03/15/22; 1157; cephalic vein (lateral side of arm), right; atvy-ogy-gsgbme catheter system; Anatomical Landmarks; 22 gauge; jennifer MORFIN; distraction; 03/15/22; 1520 03/15/22 1157 by Jennifer Escamilla RN 03/15/22 1520 by Yee Cheatham RN documented in this encounter Social History Tobacco Use Types Packs/Day Years Used Date Smoking Tobacco: Never Smokeless Tobacco: Never Alcohol Use Standard Drinks/Week Comments Not Currently 0 (1 standard drink = 0.6 oz pur e alcohol) occ Sex and Gender Information Value Date Recorded Sex Assigned at Not on file Gender Identity Not on file Sexual Orientation Not on file documented as of this encounter OR Notes * Anesthesia Postprocedure Evaluation - Michael Martinez MD - 03/15/2022 2:44 PM EST Department of Anesthesiology Post-procedure Note Patient: Issac Espino Procedure Summary Date: 03/15/22 Room / Location: [facility] OR [address] [place] [address] MAIN OR Anesthesia Start: 1255 Anesthesia Stop: 1441 Procedures: VITRECTOMY, PARS PLANA, LASER (WRVU 13.2) (Left: Eye) REMOVAL OF CORNEAL EPITHELIUM, W OR W/O, CHEMOCAUTERIZATION (WRVU 0.92) (Left: Eye) Diagnosis: Vitreous hemorrhage of left eye (Vitreous hemorrhage, left eye) Surgeons: Michael Irizarry MD Responsible Provider: Michael Martinez MD Anesthesia Type: MAC ASA Status: 3 All Anesthesia Providers: Anesthesiologist: Michael Martinez MD VARNISHER PLASTICOATER: Braden Salmeron CRNA Vitals Value Taken Time BP 145/104 03/15/22 1506 Temp 36.5 ??C (97.7 ??F) 03/15/22 1500 Pulse 56 03/15/22 1452 Resp 14 03/15/22 1500 SpO2 94 % 03/15/22 1513 Pain Level 0 03/15/22 1515 Vitals shown include unvalidated device data. Patient Location: PACU/[facility] Level of Consciousness: Conscious but Sleepy Pain Management: Satisfactory Analgesia PONV: None Cardiovascular Status: Hemodynamically Stable Respiratory Status: Stable Respiratory Status and Supplemental O2 (NC or FM) Postoperative Fluid Status: Intravascular EUvolemia Possible Anesthetic Complications: NONE apparent at time of evaluation Final Primary Anesthesia Type: MAC (The anesthetic type performed was the same as planned.) Comments: * Anesthesia Preprocedure Evaluation - Michael Martinez MD - 03/13/2022 8:21 PM EST Pre-Anesthesia Evaluation for: Issac Espino a 66 y.o. male. Procedure(s): VITRECTOMY, PARS PLANA, LASER (WRVU 13.2) Patient Active Problem List Diagnosis Date Noted ??? DAVEY (obstructive sleep apnea) 01/15/2020 ??? Permanent atrial fibrillation 01/15/2020 ??? S/P coronary artery stent placement 01/15/2020 ??? Coronary artery disease involving [place] coronary artery of [place] heart without angina pectoris 07/16/2019 ??? Current use of intermodal owner operator truck driver anticoagulation 07/16/2019 ??? Dyslipidemia 07/16/2019 Past Medical History: Diagnosis Date ??? Allergy ??? Cataract ??? Herpes cold sores ??? Hyperlipidemia ??? Hypertension No past surgical history on file. Social History Tobacco Use ??? Smoking status: Never ??? Smokeless tobacco: Never Substance Use Topics ??? Alcohol use: Yes Alcohol/week: 1.0 standard drink Types: 1 Cans of beer per week Comment: occ Social History Substance and Sexual Activity Drug Use Not on file Allergies Allergen Reactions ??? Prevacid [Lansoprazole] Hives ??? Jzmtnuk-Iog-Gis Reductase Inhibitors Muscle aches Medications: MAR and/or home medications have been reviewed. Physical Exam: Preprocedure Vitals Current as of 03/13/222020 No BP, pulse, respiration, SpO2, or temperature recorded. Height: Weight: BMI: IBW: Airway Assessment: Mallampati: III TM distance: >3 FB Neck ROM: full Cardiovascular Assessment: Rhythm: irregular Rate: normal Pulmonary Assessment: unlabored breathing Dental Assessment: - normal exam Misc Assessment: Patient is wearing No contact(s). IV access: Peripheral line Last Filed Perioperative Cognitive Screening None Anesthesia Plan: ASA 3 MAC, with a(n) intravenous induction Region - Other Informed Consent: Anesthetic plan and risks discussed with patient. Attending NOTE Brief HPI: 66 y.o. with vitreous hemorrhage LEFT [place] to OR for vitrectomy LEFT eye Diagnosis ??? Coronary artery disease involving [place] coronary artery of [place] heart without angina pectoris ??? Current use of fpc anticoagulation ??? Dyslipidemia ??? DAVEY (obstructive sleep apnea) ??? Permanent atrial fibrillation ??? S/P coronary artery stent placement Past Medical History: Diagnosis Date ??? Allergy ??? Cataract ??? Herpes cold sores ??? Hyperlipidemia ??? Hypertension BP Readings from Last 3 Encounters: No data found for BP METS:>4 Cardiac Symptoms: denies ECHO: 2013 EF 76%, mild MR/TR LABS: Lab Results Component Value Date HGB 15.5 03/26/2010 PLATELET 260 03/26/2010 INR 1.1 03/26/2010 NA 139 03/26/2010 K 3.8 03/26/2010 CREATININE 0.90 03/26/2010 Type and Screen: No results found for: ABORH Past anesthetic problems: denies Previous airway notes (on eDH): none NPO status: Reviewed and appropriate Anesthetic Plan: MAC Monitoring: Standard ASA monitors Anesthesia Screening documented in this encounter Plan of Treatment Not on file documented as of this encounter Visit Diagnoses Not on filedocumented in this encounter Administered Medications Inactive Administered Medications - up to 3 most recent administrations Medication Order MAR Action Action Date Dose Rate Site dexmedeTOMIDine (Precedex) (4 mcg/mL) bolus injection (Anesthsia) Intravenous, PRN, Starting on Tue03/15/22 at 1249, Until Tue03/15/22 at 1441, Anesthesia Intra-op, Routine Given 03/15/2022 12:57 PM EST 8 mcg Given 03/15/2022 12:49 PM EST 8 mcg lactated ringers infusion 1,000 mL, at 100 mL/hr, Intravenous, CONTINUOUS, Starting on Tue03/15/22 at 1215, Until Tue03/15/22 at 1519, Day of Surgery (Day of Procedure) Restarted 03/15/2022 12:54 PM EST New Bag 03/15/2022 12:02 PM EST 1,000 mLs 100 mL/hr propofoL (Diprivan) (10 mg/mL) infusion Intravenous, CONTINUOUS PRN, Starting on Tue03/15/22 at 1259, Until Tue03/15/22 at 1441, Anesthesia Intra-op, Routine New Bag 03/15/2022 12:59 PM EST 100 mcg/kg/min 88.2 mL/hr propofoL (Diprivan) 10 mg/mL bolus injection (Anesthesia) Intravenous, PRN, Starting on Tue03/15/22 at 1300, Until Tue03/15/22 at 1441, Anesthesia Intra-op Given 03/15/2022 1:00 PM EST 70 mg documented in this encounter Care Teams Personal Carer Relationship Specialty Start Date End Date Ambrose Luna PA [address] [place] [address] PCP - General Internal Medicine 03/12/22 documented as of this encounter
--- OUTSIDE RECORDS SUMMARY | 2024-02-09 12:38 | XMS_ITS | Referral Summary ---
Author Organization [facility] Address [address] [place] [address] Care Team Providers Care Nutrition Manager Name Role Phone Sudhakar Fitzgerald MD Unavailable [phone] Ambrose Luna RPA Primary Care Provider [phone] Allergies Active Allergy Reactions Criticality Noted Date Comments Lansoprazole 07/11/2018 Other reaction(s): hives Lisinopril Cough 02/25/2021 Metoprolol 02/25/2021 Erectile dysfunction Simvastatin Muscle Aches 07/11/2018 Medications hydroCHLOROthia zide (HYDRODIURIL) 25 mg tablet Take by mouth daily. 03/25/2019 Active doxazosin (CARDURA) 4 mg tablet TK 1 T PO QD 03/19/2019 Active atorvastatin (LIPITOR) 10 mg tablet Take 1 Tablet by mouth daily. Tuesday, Tuesday, Tuesday - 10mg 03/20/2019 Active ELIQUIS 5 mg tablet Take 1 Tablet by mouth 2 times daily. 04/07/2019 Active nitroGLYCERIN (NITROSTAT) 0.[address] under the tongue. 03/26/2010 Active aspirin chewable 81 mg tablet Take 1 Tablet by mouth daily. Active dilTIAZem (CARDIZEM CD) 120 mg capsule TAKE 1 CAPSULE BY MOUTH DAILY 90 capsule 3 03/18/2021 Active ezetimibe (ZETIA) 10 mg tablet Take 1 Tablet by mouth daily. 90 Tablet 3 03/10/2022 Active celecoxib (CELEBREX) 100 mg capsule Take 1 Capsule by mouth daily. Active Active Problems Problem Noted Date Diagnosed Date Essential hypertension 03/10/2023 DAVEY (obstructive sleep apnea) 01/15/2020 Permanent atrial fibrillation (HCC-CMS) 01/15/20 20 S/P coronary artery stent placement 01/15/2020 Coronary artery disease invo lving [place] coronary artery of [place] heart without angina pectoris 07/16/2019 Current use of fci anticoagulation 020 Dyslipidemia 07/16/2019 Social History Tobacco Use Types Packs/Day Years Used Date Smoking Tobacco: Never Smokeless Tobacco: Never Tobacco Cessation:Counseling Given: Not Answered Interpersonal Safety Answer Date Record ed Physically Hurt Never 09/16/2019 Verbally Threaten Not on file 09/16/2019 Sex and Gender Information Value Date Recorded Sex Assigned at Not on file Legal Sex Male 18:30 EST Gender Identity Male 01/12/2021 10:53 EST Sexual Orientation Not on file Last Filed [...] Body Mass Index 43.66 03/10/2023 1011 EST Functional Status * Because of a physical, mental, or emotional condition, does this person have difficulty doing errands alone such as visiting a doctor's office or shopping? Answer Date of Assessment Author No 07/16/2019 11:13 EDT Mental Status * Because of a physical, mental, or emotional condition, does this person have serious difficulty concentrating, remembering, or making decisions? Answer Entry Date Author No 07/16/2019 11:13 EDT Plan of Treatment Upcoming Encounters Date Type Department Care Team (Late st Contact Info) Description 03/14/2024 8:15 EST Office Visit [facility] [address] [place] [address] Sudhakar Fitzgerald MD [address] [place] [address]-[address] [place] [address] Procedures Procedure Name Priority Date/Time Associated Diagnosis Comments HEPATITIS C AB W REFLEX TO HCV RNA BY PCR Routine 05/12/2020 10:40 EDT from Last 3 Months or Most Recently Relevant to Health Maintenance Results * HEPATITIS C AB W REFLEX TO HCV RNA BY PCR (05/12/2020 10:40 EDT) Hep C Antibody Negative Negative 05/13/2020 10:03 EDT [facility] Blood VENOUS BLOOD / Unknown 05/12/2020 10:40 EDT 05/12/2020 21:14 EDT us Provider Outr Resulting Lab CHEMISTRY & BLOOD GA S ORDERABLES Final Result [facility] [address] [place] [address] from Last 3 Months or Most Recently Relevant to Health Maintenance Insurance [facility] [place] [facility] [place] Care Teams Nutrition Manager Relationship Specialty Start Date End Date Ambrose Luna RPA [address] [place] [id number] PCP - General Family Medicine - Primary Care 02/15/20 Sudhakar Fitzgerald MD [address] [place] [id number] Cardiovascular Disease 02/25/21
--- OUTSIDE RECORDS SUMMARY | 2024-02-09 12:38 | XMS_ITS | Encounter Summary ---
Author Organization [facility] Address [address] [place] [address] Care Team Providers Care Air Carrier Inspector Name Role Phone Seng Olsen [facility] Primary Care Provider [phone] Reason for Visit * Reason Comments Follow-up Yearly, ATHEROSCLERO TIC HEART DISEASE Encounter Details Date Type Department Care Team (Late st Contact Info) Description 07/16/2019 11:15 EDT Office Visit [facility] [address] [place] [address] Coco Sol MD [address] [address] Coronary artery disease involving [place] coronary artery of [place] heart without angina pectoris (Primary Dx); Other persistent atrial fibrillation (HCC-CMS); Current use of shelter anticoagulation; Dyslipidemia Social History Tobacco Use Types Packs/Day Years Used Date Smoking Tobacco: Never Smokeless Tobacco: Never Sex and Gender Information Value Date Recorded Sex Assigned at Not on file Legal Sex Male 18:30 EST Gender Identity Male 01/12/2021 10:53 EST Sexual Orientation Not on file documented as of this encounter Last Filed Vital Signs Vital Sign Reading Time Taken Comments Blood Pressure 118/82 07/16/2019 1059 EDT Pulse 90 07/16/2019 1059 EDT Temperature - - Respiratory Rate - - Oxygen Saturation 97% 07/16/2019 1059 EDT Inhaled Oxygen Concentration - - Weight 135.4 kg (298 lb 9.6 oz) 07/16/2019 1059 EDT Height 177.8 cm (5' 10) 07/16/2019 1059 EDT Body Mass Index 42.84 07/16/2019 1059 EDT documented in this encounter Functional Status * [...] documented in this encounter Progress Notes * Coco Sol MD - 07/16/2019 1115 EDT Cardiology Clinic Note 07/16/19 11:34 Presenting complaint: Follow-up (Yearly, ATHEROSCLEROTIC HEART DISEASE) HPI 63-year-old male with a history of known coronary disease with previous PCI to LAD in 2010. Has a history of paroxysmal atrial fibrillation with a previous stroke. Known sleep apnea, intolerant of CPAP therapy. Also with increased body mass index. Continues to do well overall. Reports no exertional chest discomfort. Does get the occasional sharp localized discomfort that lasts a few seconds once or twice a month. His breathing is continuing to improve. This is the starting to lose a significant amount of weight. Has lost 40 pounds since ourprevious visit. Is exercising more. Also has optimized his diet. Reports no significant leg swelling. No PND or orthopnea. ? Reports no palpitations or syncope. Has noticed some intermittent episodes of lightheadedness with rapid postural change. ? Reports no major bleeding issues on Eliquis therapy ? Non-smoker. Systems review A 10 point review of systems was performed and pertinent negatives and positives are mentioned above. Past medical history No past medical history on file. No past surgical history on file. Medications Current Outpatient Medications: aspirin chewable 81 mg tablet atorvastatin (LIPITOR) 10 mg tablet doxazosin (CARDURA) 4 mg tablet ELIQUIS 5 mg tablet hydroCHLOROthiazide (HYDRODIURIL) 25 mg tablet lisinopriL (PRINIVIL) 40 mg tablet metoprolol XL (TOPROL-XL) 50 mg tablet nitroGLYCERIN (NITROSTAT) 0.4 mg SL tablet No current facility-administered medications for this visit. Medication allergies Allergies Allergen Reactions ??? Lansoprazole Other reaction(s): hives ??? Simvastatin Muscle Aches Fhx/ Shx Social History Occupational History ??? Not on file Tobacco Use ??? Smoking status: Never Smoker ??? Smokeless tobacco: Never Used Substance and Sexual Activity ??? Alcohol use: Not on file ??? Drug use: Not on file ??? Sexual activity: Not on file Examination BP 118/82 Pulse 90 Ht 177.8 cm (70) Wt (!) 135.4 kg (298 lb 9.6 oz) SpO2 97% BMI 42.84 kg/m?? General - alert and orientated, no acute distress HEENT - [place] - oropharynx clear NECK - supple - no palpable lymphadenopathy - no carotid bruits Chest - good air entry - no focal crepitations - no wheeze CVS - heart sounds I and II normal, irregular - no added sounds or murmurs - no elevated JVP Abdomen - soft and non-tender - no signs of peritonism - bowel sounds present Extremities - no edema, distal pulses present, no clubbing Skin - intact Peripheral neurology - grossly intact Prior Stress Testing July 2018 Impressions: - Normal perfusion by Tc99m Sestamibi [...] is negative. 4. Baseline ECG: Atrial fibrillation. Assessment and Plan 1. Coronary artery disease involving os[place] coronary artery of os[place] heart without angina pectoris Known coronary artery disease. Drug-eluting stent to LAD in 2010 in the context of an ACS. At her previous visit he had noticed some increasing shortness of breath. However perfusion study revealed no reversible perfusion defects. Since her previous visit lost a significant amount of weight and overall his breathing is better. No exertional chest discomfort. CCS class I. He was advised to restart his aspirin 81 mg daily. Continue current statin therapy. Encouraged to continue to exercise and modify weight. He is under tremendous job so far. We may be able to modulate antihypertensives as he continues to optimize his weight. 2. Other persistent atrial fibrillation Known previous paroxysmal atrial fibrillation. However, in the last number of visits he has been inmore permanent atrial fibrillation. Asymptomatic from his atrial fibrillation overall. Continue metoprolol for rate control. Adequately anticoagulated with Eliquis for stroke risk reduction. 3. Current use of shelter anticoagulation Appropriately anticoagulated with Eliquis. 4. Dyslipidemia Continue statin therapy. Needs to have lipid profile repeated. Coco Sol MD documented in this encounter Plan of Treatment Upcoming Encounters Date Type Department Care Team (Late st Contact Info) Description 03/14/2024 8:15 EST Office Visit [facility] [address] [place], [place] [id number] Sudhakar Fitzgerald MD [address] [facility] [address] [place] [address] documented as of this encounter Visit Diagnoses Diagnosis Coronary artery disease involving [place] coronary artery of [place] heart without angina pectoris- Primary Other persistent atrial fibrillation ([facility]-CMS) Current use of terminal system operator anticoagulation Long-term (current) use of anticoagulants Dyslipidemia Other and unspecified hyperlipidemia documented in this encounter Discontinued Medications Medication Sig Discontinue Reason Start Date End Da te lisinopriL (PRINIVIL) 20 mg tablet Take 1 Tab by mouth daily. 06/15/2019 07/16/2019 documented as of this encounter Historical Medications * This list may reflect changes made after this encounter. aspirin chewable 81 mg tablet Take 1 Tablet by mouth daily. nitroGLYCERIN (NITROSTAT) 0.[address] under the tongue. 03/26/2010 lisinopriL (PRINIVIL) 40 mg tablet Take 20 mg by mouth daily. 06/16/2019 02/25/2021 added in this encounter Care Teams Air Carrier Inspector Relationship Specialty Start Date End Date Seng Olsen, [facility] [place] [place] [address] PCP - General 07/16/19 02/14/20 documented as of this encounter
--- OUTSIDE RECORDS SUMMARY | 2024-02-09 12:38 | XMS_ITS | Encounter Summary ---
Author Organization [facility] Address [address] [place] [address] Care Team Providers Care Digital Research Analyst Name Role Phone Sudhakar Fitzgerald MD Unavailable [phone] Ambrose Luna [facility] Primary Care Provider [phone] Encounter Details Date Type Department Care Team (Late st Contact Info) Description 05/12/2020 Lab Requisition [facility] Pathology & Laboratory Medicine - [address] [id number] Outr Resulting Lab, Provider Social History Tobacco [...] Info) Description 03/14/2024 8:15 EST Office Visit [facility] Clinic [address] [place] [address] [place] [address] [facility]akar Fitzgerald [facility] [address] [facility] [address] [place] [address] documented as of this encounter Procedures Procedure Name Priority Date/Time Associated Diagnosis Comments HIV 1/2 ANTIGEN AND ANTIBODY, 4TH GENERATION Routine 05/12/2020 10:40 EDT documented in this encounter Results * HIV 1/2 ANTIGEN AND ANTIBODY, 4TH GENERATION (05/12/2020 10:40 EDT) HIV 1 and 2 Antibody/p24 Antigen, 4th Generation Negative Negative 05/13/2020 9:38 EDT [facility] Comment: If acute HIV-1 infection is suspected in a high risk ??patient, submit plasma specimen for HIV-1 RNA quantitation test. Fourth Generation assay performed on the Siemens [employer]. Blood VENOUS BLOOD / Unknown 05/12/2020 10:40 EDT 05/12/2020 21:14 EDT us Provider Outr Resulting Lab IMMUNOLOGY AND SEROL OGY ORDERABLES Final Result [facility] [address] [place] [address] documented in this encounter Visit Diagnoses Not on filedocumented in this encounter Care Teams Digital Research Analyst Relationship Specialty Start Date End Date Ambrose Luna RPA [address] [place] [id number] PCP - General Family Medicine - Primary Care 02/15/20 Sud[facility]akar Fitzgerald MD [address] [facility] [address] [place] [address] Cardiovascular Disease 02/25/21 documented as of this encounter
--- OUTSIDE RECORDS SUMMARY | 2024-02-09 12:38 | XMS_ITS | Encounter Summary ---
Author Organization [facility] Address [address] [place] [address] Care Team Providers Care Bituminous Distributor Operator Name Role Phone Sudhakar Fitzgerald MD Unavailable [phone] Ambrose Luna [facility] Primary Care Provider [phone] Reason for Visit * Reason Comments Coronary Artery Disease Encounter Details Date Type Department Care Team (Late st Contact Info) Description 03/10/2022 8:15 EST Office Visit [facility] [address] [place] [address] Sudhakar Fitzgerald MD [address] [facility] [address] [place] [address] S/P coronary artery stent placement (Primary Dx); Coronary artery disease involving greenville coronary artery of green[place] heart without angina pectoris; Permanent atrial fibrillation (HCC-CMS); Dyslipidemia Social History Tobacco Use Types Packs/Day [...] Sign Reading Time Taken Comments Blood Pressure 130/72 03/10/2022 0808 EST Pulse 85 03/10/2022 0808 EST Temperature - - Respiratory Rate - - Oxygen Saturation 96% 03/10/2022 0808 EST Inhaled Oxygen Concentration - - Weight 146.1 kg (322 lb) 03/10/2022 0808 EST Height 177.8 cm (5' 10) 03/10/2022 0808 EST Body Mass Index 46.2 03/10/2022 0808 EST documented in this encounter Functional Status [...] 07/16/2019 11:13 EDT documented in this encounter Patient Instructions * Patient Instructions* Sudhakar Fitzgerald MD - 03/10/2022 8:15 EST In addition to Lipitor we will start Zetia, a non-statin, to lower your cholesterol further, goal LDL < 100, ideally < 70. Last LDL was 102. Send in your next labwork for review. Eliquis can be held for 2 days prior to any procedures if needed. If there is concern for bleeding, it's ok to stop the aspirin and continue Eliquis alone documented in this encounter Ordered Prescriptions Prescription Sig Dispense Quantity Refills Last Filled Start Date End Date ezetimibe (ZETIA) 10 mg tablet Take 1 Tablet by mouth daily. 90 Tablet 3 03/10/2022 documented in this encounter Progress Notes * Sudhakar Fitzgerald MD - 03/10/2022 0815 EST [facility] CARDIOLOGY FOLLOW-UP Date of Service: 03/10/2022 Reason for Visit: S/P coronary artery stent placement [Z95.5] ASSESSMENT CAD s/p LAD PCI 2010. MPI 2018 w / normal perfusion but abnormal contraction, EF 46 %. No angina orheart failure. HLP. On low dose statin b/o intolerance to higher doses. Suboptimal lipid profile (LDL 102). HTN. Controlled. Permanent Afib. Rate controlled. Anti-coagulated, no bleeding. PLAN ?? To achieve LDL < 100, ideally < 70, will add Zetia rather than increasing his Lipitor to avoid worsening myalgias ?? If concern for bleeding, stop ASA and continue Eliquis alone. If longerterm OAC not possible, can consider left atrial appendage occlusion procedure w/ Watchman which would only require ASA snf ?? Annual CBC, Chem7, Mg and fasting lipids - has blood work coming up in the spring. Follow-up 1 year, no testing; patient advised to call in lab results SUBJECTIVE Issac Espino, 1955 66 y.o. man with personal history of DAVEY no tolerating CPAP, CVA, permanent Afib and CAD s/p LAD PCI 2010. Feeling well. Denies any cardiac s/s. Just started a rowing routine, currently at 15 min EOD, goal 30 min 4 - 5 times per week. Does not feel limited from a cardioplumonary standpoint. Sequela from CVA include mild word finding difficulties. No motor deficits. Had some bleeding into his eye. After intervention by ophto no recurrent bleeding. Patient denies CP, SOB, PND, edema, palpitations, syncope, focal deficits, bleeding, GI symptoms. Outpatient Medications Marked as Taking for the 03/10/22 encounter (Office Visit) with Sudhakar Fitzgerald MD Medication Sig ??? aspirin chewable 81 mg tablet Take 81 mg by mouth daily. ??? atorvastatin (LIPITOR) 10 mg tablet Take 10 mg by mouth daily. Tuesday, Tuesday, Tuesday - 10mg ??? dilTIAZem (CARDIZEM CD) 120 mg capsule TAKE 1 CAPSULE BY MOUTH DAILY ??? doxazosin (CARDURA) 4 mg tablet TK 1 T PO QD ??? ELIQUIS 5 mg tablet Take 5 mg by mouth 2 times daily. ??? hydroCHLOROthiazide (HYDRODIURIL) 25 mg tablet Take by mouth daily. ??? nitroGLYCERIN (NITROSTAT) 0.4 [...] Encounters: 02/25/21 81 01/28/20 57 07/16/19 90 Diagnostic Data Available records including laboratory and cardiac studies reviewed. Pertinent findings as follows: Lab Results Component Value Date CREATININE 1.11 02/25/2021 CALCGFR 68 02/25/2021 BUN 19 02/25/2021 NA 142 02/25/2021 CL 102 02/25/2021 K 4.0 02/25/2021 MG 1.9 02/25/2021 LABALBU 4.3 02/25/2021 ALT 26 02/25/2021 AST 29 02/25/2021 ALKPHOS 101 02/25/2021 TBIL 0.6 02/25/2021 Lab Results Component Value Date WBC 9.28 02/25/2021 HGB 16.3 02/25/2021 PLT 301 02/25/2021 No results found for: NTBNP, TROPONINI, CPK, URICACID, CRP Lab Results Component Value Date CHOL 165 02/25/2021 HDL 38 02/25/2021 LDL 83 01/28/2020 LDLBASE 102 02/25/2021 TRIG 125 02/25/2021 Lab Results Component Value Date TSH 1.56 02/25/2021 NM stress test 2019: Normal perfusion. Diffuse hypokinesis, EF 46%. PHYSICAL EXAM GENERAL: Pleasant, no acute distress. HEENT: Anicteric. [...] NEURO: Alert and oriented x3, grossly intact ORDERS/MEDICATION CHANGES No orders of the defined types were placed in this encounter. There are no discontinued medications. Med Orders Placed This Visit and Additions to the Medication List Medications ??? ezetimibe (ZETIA) 10 mg tablet Sig: Take 1 Tablet by mouth daily. Dispense: 90 Tablet Refill: 3 Sudhakar Fitzgerald MD, PhD documented in this encounter Plan of Treatment Upcoming Encounters Date Type Department Care Team (Late st Contact Info) Description 03/14/2024 8:15 EST Office Visit [facility] [address] [place] [address] Sudhakar Fitzgerald MD [address] [place] [address] [place] [address] documented as of this encounter Visit Diagnoses Diagnosis S/P coronary artery stent placement- Primary Postsurgical percutaneous transluminal coronary angioplasty status Coronary artery disease involving greenville coronary artery of greenville heart without angina pectoris Permanent atrial fibrillation ([facility]) Atrial fibrillation Dyslipidemia Other and unspecified hyperlipidemia documented in this encounter Care Teams Bituminous Distributor Operator Relationship Specialty Start Date End Date Ambrose Luna RPA [address] [address] PCP - General Family Medicine - Primary Care 02/15/20 Sudhakar Fitzgerald MD [address] [place] [address] [address] Cardiovascular Disease 02/25/21 documented as of this encounter
--- OUTSIDE RECORDS SUMMARY | 2024-02-09 12:38 | XMS_ITS | Encounter Summary ---
Author Organization [facility] Address [address] [place] [address] Care Team Providers Care Auto Parker Name Role Phone Emery Goel MD Primary Care Provider [phone] Seng Olsen [facility] Primary Care Provider [phone] Sudhakar Fitzgerald MD Unavailable [phone] [facility] Primary Care Provider [phone] Encounter Details Date Type Department Care Team (Late st Contact Info) Description 07/24/2018 Historical Results Only [facility] [address] [place] [address] Unknown, Provider, Social History Tobacco Use Types Packs/Day Years [...] Info) Description 03/14/2024 8:15 EST Office Visit [facility] [address] [place] [address] Sudhakar Fitzgerald MD 130 [facility] [address] [place] [address] documented as of this encounter Procedures Procedure Name Priority Date/Time Associated Diagnosis Comments HISTORICAL STRESS TEST 07/24/2018 10:00 EDT documented in this encounter Results * HISTORICAL STRESS TEST (07/24/2018 10:00 EDT) Anatomical Region Laterality Modality Nuclear Stress 07/24/2018 10:0 0 EDT Narrative 07/24/2018 10:00 EDT ? [facility] ?[facility] ?[facility] [address] [place] [address] ? [id number] ?C A R D I A C ?S T R E S S ?T E S T ?R E P O R T NAME: JACK ESPINO ? : 51 TELEPHONE: [phone] ? MR#: [id number] ? *[facility]* *[facility]* [address] [place] [address] Myocardial Perfusion Imaging - SPECT Regadenoson Date of study: ??07/24/2018 *PATIENT PRESENTATION* Height: ? 177.8cm (70in) Blood Pressure: Weight: ? 151.8kg (334lb) BSA: ?2.82m S 2 Ordering physician: Coco Sol Impressions: - Normal perfusion by Tc99m Sestamibi Imaging. - Abnormal contraction consistent with cardiomyopathy. Summary: 1. Myocardial perfusion imaging: No myocardial perfusion defects noted. 2. The left ventricular end-systolic volume is 73ml. The calculated left ?? ventricular ejection fraction after stress: 46%. LV global systolic ?? function is mildly reduced. Diffuse left ventricular regional motion ?? abnormalities. 3. Stress ECG conclusions: The stress ECG is negative. 4. Baseline ECG: Atrial fibrillation. Indication: ?? MAGALLANES, Appropriate Use Criteria: A (Appropriate). History: PAST 6 MONTHS, SOB WITH EXERTION. NO CHEST PAIN CHRONIC ATRIAL FIB, S/P STROKE. 2010- ME- STENT X 1( LAD) ??Risk factors: ??Family history of coronary artery disease. Hypertension. Obesity. Dyslipidemia. MEDS: SEE ECW. Imaging Technique: Protocol: ??Regadenoson. Acquisition: ?? Gated SPECT; 1 day - rest/stress. ?The patient was ? [facility] ?[facility] ?[facility] [address] [place], [place] [address] ? [id number] ?C A R D I A C ?S T R E S S ?T E S T ?R E P O R T NAME: JACK ESPINO ? : 51 TELEPHONE: [phone] ? MR#: [id number] ? imaged in the supine position. Attenuation correction used. Isotope administration: - Rest. Tc[99m]-sestamibi. Injection to stress time: 00:45. - Stress. Tc[99m]-sestamibi. 1-2 min before end of exercise Baseline ECG: ??ATRIAL FIB- 79 BPM. ??Atrial fibrillation. Stress protocol: +--------+--+ + + !Stage ?? !HR!BP (mmHg) ?!Comments ? ! +--------+--+ + + !Baseline!79!171/101 (124)! ! +--------+--+ + + !1 min ?? !78! !Inject Regadenoson.! +--------+--+ + + !2 min ?? !86!140/93 (109) ! ! +--------+--+ + + !3 min ?? !70! ! ! +--------+--+ + + !4 min ?? !76!171/101 (124)! ! +--------+--+ + + !5 min ?? !70! ! ! +--------+--+ + + !6 min ?? !80!155/96 (116) ! ! +--------+--+ + + !7 min ?? !76! ! ! +--------+--+ + + * Stress results: ??The rate-pressure product for the peak heart rate and blood pressure was 10972ru Hg/min. Stress ECG: RESTING LEXISCAN STUDY NO CHEST PAIN NO ECTOPY NO ISCHEMIC ECG CHANGES. ??The stress ECG is negative. Myocardial perfusion: ?? Imaging information: gated. The left ventricle is mildly dilated. No myocardial perfusion defects noted. Ventricular Function (Wall Motion): ?? The left ventricular end-systolic volume is 73ml. The calculated left ventricular ejection fraction after stress: 46%. LV global systolic function is mildly reduced. ?? Diffuse left ventricular regional motion abnormalities. Study data: ??Sudhakar Fitzgerald MD supervised and was readily available during the procedure. This study was interpreted by [facility] [place] [facility]. ??Study status: ??Routine. ??Consent: ??The risks, benefits, and alternatives to the procedure were explained to the patient and informed consent was ? [facility] ?[facility] ?[address] [place] [address] ? [id number] ?C A R D I A C ?S T R E S S ?T E S T ?R E P O R T NAME: JACK ESPINO ? : 51 TELEPHONE: [phone] ? MR#: [id number] ? obtained. ??Procedure: ??Initial setup. A baseline ECG was recorded. Surface ECG leads and manual cuff blood pressure measurements were monitored. Heart sounds: Normal. Lung sounds: Normal. ??Regadenoson stress test. Stress testing was performed, with regadenoson by intravenous bolus, for a total dose of 0.4mgover 10.00sec, followed by a 5ml saline flush. The infusion was terminated due to per protocol. Study completion: ??All catheters inserted during the procedure were removed. The patient tolerated the procedure well and was discharged from the lab. ??Discharge: ??The patient left the laboratory in stable condition. ? Birthdate: ??Patient birthdate: 1955. ??Sex: ??Gender: male. ??Study date: ??Study date: 07/24/2018. Study time: 10:00 AM. Signature Documentation: - The imaging portion of this study was interpreted by Nuclear ??Blankbook Stitching Machine Operator Sudhakar Fitzgerald MD. - The Stress ECG portion of this study was interpreted by Sudhakar ??MD Amilcar. Electronically signed by Sudhakar Fitzgerald 07/25/2018 16:24 Procedure Note Sudhakar Fitzgerald MD - 12/03/2018 [facility] [address] [place], [place] [address] [id number] C A Cindy D I A C S T R E S S T E S T R E P O R T NAME: JACK ESPINO DDOB: [birth year] TELEPHONE: [phone] MR#: [id number] *[facility]* *[facility]* [address] [place] [address] Myocardial Perfusion Imaging - SPECT Heide Date of study: 07/24/2018 *PATIENT PRESENTATION* Height: [...] MAGALLANES, Appropriate Use Criteria: A (Appropriate). History: PAST 6 MONTHS, SOB WITH EXERTION. NO CHEST PAIN CHRONIC ATRIAL FIB, S/P STROKE. 2010- ME- STENT X 1( LAD) Risk factors: Family history of coronary artery disease. Hypertension. Obesity. Dyslipidemia. MEDS: SEE ECW. Imaging Technique: Protocol: Regadenoson. Acquisition: Gated SPECT; 1 day - rest/stress. The patient was [facility] [address] [place], [place] [address] [id number] C A R D I A C S T R E S S T E S T R E P O R T NAME: JACK ESPION DDOB: [birth year] TELEPHONE: [phone] MR#: [id number] imaged in the supine position. Attenuation correction used. Isotope administration: - Rest. Tc[99m]-sestamibi. Injection to stress time: 00:45. - Stress. Tc[99m]-sestamibi. 1-2 min before end of exercise Baseline ECG: ATRIAL FIB- 79 BPM. Atrial fibrillation. Stress protocol: +--------+--+ + + !Stage !HR!BP (mmHg) !Comments ! +--------+--+ + + !Baseline!79!171/101 (124)! ! +--------+--+ + + !1 min !78! !Inject Robertoson.! +--------+--+ + + !2 min !86!140/93 (109) ! ! +--------+--+ + + !3 min !70! ! ! +--------+--+ + + !4 min !76!171/101 (124)! ! +--------+--+ + + !5 min !70! ! ! +--------+--+ + + !6 min !80!155/96 (116) ! ! +--------+--+ + + !7 min !76! ! ! +--------+--+ + + * Stress results: The rate-pressure product for the peak heart rate and blood pressure was 82845ks Hg/min. Stress ECG: RESTING LEXISCAN STUDY NO CHEST PAIN NO ECTOPY NO ISCHEMIC ECG CHANGES. The stress ECG is negative. Myocardial perfusion: Imaging information: gated. The left ventricle is mildly dilated. No myocardial perfusion defects noted. Ventricular Function (Wall Motion): The left ventricular end-systolic volume is 73ml. The calculated left ventricular ejection fraction after stress: 46%. LV global systolic function is mildly reduced. Diffuse left ventricular regional motion abnormalities. Study data: Sudhakar Fitzgerald MD supervised and was readily available during the procedure. This study was interpreted by [facility] [place] [facility]. Study status: Routine. Consent: The risks, benefits, and alternatives to the procedure were explained to the patient and informed consent was [facility] [address] [place] [address] [id number] C A R D I A C S T R E S S T E S T R E P O R T NAME: JACK ESPINO DDOB: [birth year] TELEPHONE: [phone] MR#: [id number] obtained. Procedure: Initial setup. A baseline ECG was recorded. Surface ECG leads and manual cuff blood pressure measurements were monitored. Heart sounds: Normal. Lung sounds: Normal. Regadenoson stress test. Stress testing was performed, with regadenoson by intravenous bolus, for a total dose of 0.4mgover 10.00sec, followed by a 5ml saline flush. The infusion was terminated due to per protocol. Study completion: All catheters inserted during the procedure were removed. The patient tolerated the procedure well and was discharged from the lab. Discharge: The patient left the laboratory in stable condition. Birthdate: Patient birthdate: 1955. Sex: Gender: male. Study date: Study date: 07/24/2018. Study time: 10:00 AM. Signature Documentation: - The imaging portion of this study was interpreted by Nuclear Blankbook Stitching Machine Operator Sudhakar Fitzgerald MD. - The Stress ECG portion of this study was interpreted by Sudhakar Fitzgerald MD. Electronically signed by Sudhakar Fitzgerald 07/25/2018 16:24 us Provider Unknown CARDIAC NM ORDERABLES Final Result documented in this encounter Visit Diagnoses Not on filedocumented in this encounter Care Teams Auto Parker Relationship Specialty Start Date End Date Emery Goel MD PCP - General 07/23/14 07/15/19 Seng Olsen DNP [address] [place] [address] [place] [id number] PCP - General 07/16/19 02/14/20 Ambrose Luna RPA [address] [place] [address] [place] [address] PCP - General Family Medicine - Primary Care 02/15/20 Sudhakar Fitzgerald MD [address] [place] [address] Cardiovascular Disease 02/25/21 documented as of this encounter
--- OUTSIDE RECORDS SUMMARY | 2024-02-09 12:38 | XMS_ITS | Clinical Summary ---
Author Organization [facility] Address [address] [place] [address] Care Team Providers Care Blower Feeder Dyed Raw Stock Name Role Phone Sudhakar Fitzgerald MD Unavailable [phone] Ambrose Luna RPA Primary Care Provider [phone] Allergies Active Allergy Reactions Criticality Noted Date [...] placement 01/15/2020 Coronary artery disease invo lving [place] coronary artery of [place] heart without angina pectoris 07/16/2019 Current use of longterm anticoagulation 020 Dyslipidemia 07/16/2019 Surgical History Surgery Date Site/Laterality Comments CORONARY ANGIOPLASTY WITH ST ENT PLACEMENT 02/14/2010 - 02/13/2011 LAD Medical History Medical History Date Comments CVA (cerebral vascular accident) ([facility]) Social History Tobacco Use Types Packs/Day Years [...] 10:53 EST Sexual Orientation Not on file Obstetrics History Last Filed Vital Signs Vital Sign Reading [...] Body Mass Index 43.66 03/10/2023 1011 EST Plan of Treatment Upcoming Encounters Date Type Department Care Team (Late st Contact Info) Description 03/14/2024 8:[address] [facility] [address] [place] [address] Sudhakar Fitzgerald MD [address] [facility] [address] [place] [address] Health Maintenance Due Date Last Done Comments RSV Immunization ( o r 60+ Years) (1 - Risk 60-74 years 1-dose series) 2013 COVID-19 Vaccine (2023- season) 2023 Fall Risk Screening 03/10/2024 03/10/2023, 0 Hepatitis C Screen Completed 05/12/2020 Procedures Procedure Name Priority Date/Time Associated Diagnosis Comments HEPATITIS C AB W REFLEX TO HCV RNA BY PCR Routine 05/12/2020 10:40 EDT from Last 3 Months or Most Recently Relevant to Health Maintenance Results * HEPATITIS C AB W REFLEX TO HCV RNA BY PCR (05/12/2020 10:40 EDT) Hep C Antibody Negative Negative 05/13/2020 10:03 EDT [facility] Blood VENOUS BLOOD / Unknown 05/12/2020 10:40 EDT 05/12/2020 21:14 EDT us Provider Outr Resulting Lab CHEMISTRY & BLOOD GA S ORDERABLES Final Result [facility] [address] [place] [address] from Last 3 Months or Most Recently Relevant to Health Maintenance Insurance [facility] MED[facility] [facility] MED[facility] [place] Care Teams Blower Feeder Dyed Raw Stock Relationship Specialty Start Date End Date Ambrose Luna RPA [address] [place] [id number] PCP - General Family Medicine - Primary Care 02/15/20 Sudhakar Fitzgerald MD [address] [place] [address] [address] [place] [phone] Cardiovascular Disease 02/25/21
--- OUTSIDE RECORDS SUMMARY | 2024-02-09 12:38 | XMS_ITS | Encounter Summary ---
Author Organization [facility] Address [address] [place] [address] Care Team Providers Care Reading Assistant Name Role Phone Emery Goel MD Primary Care Provider Reason for Visit * Reason Onset Date Comments Hypotension 06/15/2019 Encounter Details Date Type Department Care Team (Late st Contact Info) Description 06/15/[address] [facility] [address] [place], [place] [address] Coco Sol MD [address] [place] [phone] Hypotension Social History Tobacco Use Types Packs/Day Years Used Date Smoking Tobacco: Never Assessed Sex and Gender Information Value Date Recorded Sex Assigned at Not on file Legal Sex Male 18:30 EST Gender Identity Male 01/12/2021 10:53 EST Sexual Orientation Not on file documented as of this encounter Miscellaneous Notes * Telephone Encounter - Darcy Lujan RN - 06/15/2019 1652 EDT Spoke with patient and notified him agrees with changes and will F/U as scheduled in July. He is instructed to call the office back with any concerns prior to scheduled F/U. * Telephone Encounter - Coco Sol MD - 06/15/2019 1637 EDT That sounds good. Will review as planned in July. * Telephone Encounter - Darcy Lujan, RN - 06/15/2019 1036 EDT Spoke with patient, he reports two changes in medications that were made by his PCP. He had been having some lightheadedness upon standing. He reports having some low BP readings. He reports that his average BP reading is -105/73. His PCP decreased his Lisinopril to 20 mg daily, down from 40 mg, and his metoprolol from 150 mg daily down to 50 mg daily. These changes were made on 06/08/2019. He wanted to let you know, and wondered if you felt these changes were OK, and also if you felt anyother changes should be made. He has F/U scheduled with you on 07/16/2019 * Telephone Encounter - Larissa Meraz - 06/15/2019 1005 EDT Patient called looking to discuss his BP. He stated he has been speaking with his PCP as he has been having low BP with lightheadedness associated with it. His PCP would like to lower some of his medications but he was told to call here first and discuss with Dr. Sol. Pt has lost about 40 lbs and is now down to 292 lbs. He can be reached at [phone] documented in this encounter Plan of Treatment Upcoming Encounters Date Type Department Care Team (Late st Contact Info) Description 03/14/2024 8:15 EST Office Visit [facility] [address] [place] [address] Sudhakar Fitzgerald MD 130 [facility] [address] [place] [address] documented as of this encounter Visit Diagnoses Not on filedocumented in this encounter Discontinued Medications Medication Sig Discontinue Reason Start Date End Da te lisinopriL (PRINIVIL) 40 mg tablet Take 20 mg by mouth daily. Order modification 03/17/2019 06/15/2019 documented as of this encounter Historical Medications * This list may reflect changes made after this encounter. ELIQUIS 5 mg tablet Take 1 Tablet by mouth 2 times daily. 04/07/2019 atorvastatin (LIPITOR) 10 mg tablet Take 1 Tablet by mouth daily. Tuesday, Tuesday, Tuesday - 10mg 03/20/2019 doxazosin (CARDURA) 4 mg tablet TK 1 T PO QD 03/19/2019 hydroCHLOROthiazi de (HYDRODIURIL) 25 mg tablet Take by mouth daily. 03/25/2019 lisinopriL (PRINIVIL) 20 mg tablet Take 1 Tab by mouth daily. 06/15/2019 07/16/2019 lisinopriL (PRINIVIL) 40 mg tablet Take 20 mg by mouth daily. 03/17/2019 06/15/2019 metoprolol XL (TOPROL-XL) 50 mg tablet Take 100 mg by mouth daily. 03/26/2019 05/22/2020 added in this encounter Care Teams Reading Assistant Relationship Specialty Start Date End Date Emery Goel MD PCP - General 07/23/14 07/15/19 documented as of this encounter
--- OUTSIDE RECORDS SUMMARY | 2024-02-09 12:38 | XMS_ITS | Encounter Summary ---
Author Organization [facility] Address [address] [place] [address] Care Team Providers Care Procurement Clerk Name Role Phone Sudhakar Fitzgerald MD Unavailable [phone] Ambrose Luna [facility] Primary Care Provider [phone] Reason for Visit * Reason Comments Other Encounter Details Date Type Department Care Team (Late st Contact Info) Description 03/18/2021 Refill [facility] Cardiology Clinic [address] [place] [address] Sudhakar Fitzgerald MD [address] [facility] [address] [place] [address] Other Social History Tobacco Use Types Packs/Day Years [...] Refills Last Filled Start Date End Date dilTIAZem (CARDIZEM CD) 120 mg capsule TAKE 1 CAPSULE BY MOUTH DAILY 90 capsule 3 03/18/2021 documented in this encounter Plan of Treatment Upcoming Encounters Date Type Department Care Team (Late st Contact Info) Description 03/14/2024 8:15 EST Office Visit [facility] Cardiology Clinic [address] [place] [id number] Sudhakar Fitzgerald MD [address] [place] [phone] documented as of this encounter Visit Diagnoses Not on filedocumented in this encounter Discontinued Medications Medication Sig Discontinue Reason Start Date End Da te dilTIAZem (CARDIZEM CD) 120 mg capsule Take 1 Cap by mouth daily. 05/22/2020 03/18/2021 documented as of this encounter Care Teams Procurement Clerk Relationship Specialty Start Date End Date Ambrose Luna [facility] [address] [place] [address] PCP - General Family Medicine - Primary Care 02/15/20 Sudhakar Fitzgerald MD [address] [place] [address] Cardiovascular Disease 02/25/21 documented as of this encounter
--- OUTSIDE RECORDS SUMMARY | 2024-02-09 12:38 | XMS_ITS | Encounter Summary ---
[facility] Organization [facility] [place] [address] Care Team Providers Care Airplane Flight Attendant Supervisor Name Role Phone Unknown Primary Care Provider Unavailabl e Encounter Details Date Type Department Care Team (Latest Contact Info) Description 02/26/2022 Travel Social History Tobacco Use Types Packs/Day Years Used Date Smoking Tobacco: Never Assessed Sex and Gender Information Value Date Recorded Sex Assigned at Not on file Gender Identity Not on file Sexual Orientation Not on file documented as of this encounter Plan of Treatment Not on file documented as of this encounter Visit Diagnoses Not on filedocumented in this encounter Care Teams Airplane Flight Attendant Supervisor Relationship Specialty Start Date End Date Unknown None PCP - General 02/14/19 03/11/22 documented as of this encounter
--- OUTSIDE RECORDS SUMMARY | 2024-02-09 12:38 | XMS_ITS | Encounter Summary ---
Author Organization [facility] Address [address] [place] [address] Care Team Providers Care Shredding Specialist Name Role Phone Emery Goel MD Primary Care Provider [phone] Encounter Details Date Type Department Care Team (Latest Contact Info) Description 07/24/2018 9:44 EDT - 07/24/2018 23:59 EDT Hospital Encounter [facility] [address] [place] [address] Unknown, Provider, MD Discharge Disposition: Home or Self Care Social History Tobacco Use Types Packs/Day Years Used Date Smoking Tobacco: Never Assessed Sex and Gender Information Value Date Recorded Sex Assigned at Not on file Legal Sex Male 18:30 EST Gender Identity Male 01/12/2021 10:53 EST Sexual Orientation Not on file documented as of this encounter Medications at Time of Discharge nitroGLYCERIN (NITROSTAT) 0.[address] under the tongue. 03/26/2010 documented as of this encounter Discharge Disposition Disposition Code Departure Means Destination Home or Self Usp documented in this encounter Plan of Treatment Upcoming Encounters Date Type Department Care Team (Late st Contact Info) Description 03/14/2024 8:15 EST Office Visit [facility] Cardiology Clinic [address] [place] [address] Sudhakar Fitzgerald MD 130 [facility] [address] [place] [phone] documented as of this encounter Visit Diagnoses Not on filedocumented in this encounter Care Teams Shredding Specialist Relationship Specialty Start Date End Date Emery Goel MD PCP - General 07/23/14 07/15/19 documented as of this encounter
--- OUTSIDE RECORDS SUMMARY | 2024-02-09 12:38 | XMS_ITS | Encounter Summary ---
Author Organization [facility] Address [address] [place] [address] Care Team Providers Care Clinic Scheduler Name Role Phone Sudhakar Fitzgerald MD Unavailable [phone] Ambrose Luna [facility] Primary Care Provider [phone] Reason for Visit * Reason Onset Date Comments Coordination Of Care 03/07/2023 Paperwork request 03/07/2023 Please fax 4 s manuel's ortho pt's OV notes from his upcoming appoint. Encounter Details Date Type Department Care Team (Late st Contact Info) Description 03/07/2023 Telephone [facility] [place] [address] [place] [address] Sudhakar Fitzgerald MD [address] [place] [address] [phone] Coordination Of Care; Paperwork request (Please fax 4 season's ortho pt's OV notes from his upcoming appoint. ) Social History Tobacco Use Types Packs/Day Years [...] 07/16/2019 11:13 EDT documented in this encounter Miscellaneous Notes * Telephone Encounter - Kaity Nunez - 03/11/2023 1020 EST Office visit note from 03/10 appointment with faxed to 4 * Telephone Encounter - Kaity Nunez - 03/07/2023 1319 EST Aleyda from [facility] called and said that Issac is being seen in their office today for a pre-op clearance for a total right knee replacement in March with . is requesting that we please fax them the office visit notes when Issac comes in to see on 03/10/23 Their phone number is [phone] And Their fax # is [phone] documented in this encounter Plan of Treatment Upcoming Encounters Date Type Department Care Team (Late st Contact Info) Description 03/14/2024 8:15 EST [facility] Cardiology Clinic [address] [place] [phone] Sudhakar Fitzgerald MD [address] [place] [phone] documented as of this encounter Visit Diagnoses Not on filedocumented in this encounter Care Teams Clinic Scheduler Relationship Specialty Start Date End Date Ambrose Luna RPA [address] [place] [phone] PCP - General Family Medicine - Primary Care 02/15/20 Sudhakar Fitzgerald MD [address] [place] [address], [place] [address] Cardiovascular Disease 02/25/21 documented as of this encounter
--- OUTSIDE RECORDS SUMMARY | 2024-02-09 12:38 | XMS_ITS | Encounter Summary ---
Author Organization [facility] [place] [address] Care Team Providers Care Expediter Service Order Name Role Phone Ambrose Luna Primary Care Provider [phone] Reason for Visit * Auth/Cert (Routine) Specialty Diagnoses / Procedures Referred By Contac t Referred To Contact Diagnoses Vitreous hemorrhage, left eye Vitreous hemorrhage, left eye Procedures PRO VITRECTOMY,FOCAL LASER RX RETINA VITRECTOMY, PARS PLANA, LASER (WRVU 13.2) Michael Irizarry MD [facility] Referral ID Status Reason Start Date Expiration Date Visits Re quested Visits Authorized [id number] 1 1 Encounter Details Date Type Department Care Team (Latest Contact Info) Description 03/15/2022 11:30 AM EST - 03/15/2022 3:37 PM EST Hospital Encounter [place] [address] Michael Irizarry MD Vitreous hemorrhage of left eye Discharge Disposition: Home Social History Tobacco Use [...] tenderness and/or light sensitivity please call the [facility] telephone center ([phone]) immediately and ask to be connected to the emt i/99 compliance and control analyst. PAIN May use over the counter pain [...] surgery as planned. Michael Irizarry MD, PhD Signal Processing Engineer of Ophthalmology Diseases of the Retina and Vitreous documented in this encounter Miscellaneous Notes * Op Note - Michael Irizarry MD - 03/15/2022 1:31 PM EST [facility] [place] [place] Operative Note Patient Name: Issac Espino : [id number] MR#: [id number] Case Date: 03/15/2022 Surgeon: Surgeon(s) and Role: [...] brought to the operative suite at the [facility] [place] [place] where a time-out was done to confirm [...] the vitreous base was performed while the life enrichment assistant was depressing the sclera. There were no retinal breaks. 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 Panretinal photocoagulation was performed 360 degrees (1362 spots, 200- 300mw, 200ms). Partial fluid -air exchange was performed. Intravitreal injection of Avastin 1.25 mg/0.05ml (Lot [id number] ER, [facility] [id number]) was administered in order to control of [...] left eye Removal Corneal Epithelium W/Wo Chemocauterization (78032) Yes 03/15/2022 12:54 PM EST Vitreous hemorrhage of left eye Vitrectomy, Focal Laser Rx Retina (88130) Yes 03/15/2022 12:54 PM EST Vitreous hemorrhage [...] Given 03/15/2022 12:38 PM EST 1 drop lactated ringers infusion 1,000 mL, at 100 mL/hr, Intravenous, CONTINUOUS, Starting on Tue03/15/22 at 1215, Until Tue03/15/22 at 1519, Day of Surgery (Day of Procedure) Restarted 03/15/2022 12:54 PM EST New Bag 03/15/2022 12:02 PM EST 1,000 mLs 100 mL/hr moxifloxacin (Vigamox) 0.5 % ophthalmic solution 1 drop 1 drop, Left Eye, EVERY 5 MIN, 3 doses, First dose on Tue03/15/22 at 1215, Last dose on Tue03/15/22 at 1225, Day of Surgery (Day of Procedure), Routine Given 03/15/2022 12:49 PM EST 1 drop Given 03/15/2022 12:45 PM EST 1 drop Given 03/15/2022 12:39 PM EST 1 drop PHENYLephrine (Mydfrin) 2.5 % ophthalmic solution 1 drop 1 drop, Left Eye, EVERY 5 MIN, 3 doses, First dose on Tue03/15/22 at 1215, Last dose on Tue03/15/22 at 1225, Day of Surgery (Day of Procedure), Routine Given 03/15/2022 12:45 PM EST 1 drop Given 03/15/2022 12:39 PM EST 1 drop Given 03/15/2022 12:25 PM EST 1 drop prednisoLONE acetate (Pred-Forte) 1 % suspension 1 drop 1 drop, Left Eye, ONCE, 1 dose, On Tue03/15/22 at 1215, Day of Surgery (Day of Procedure), Routine Given 03/15/2022 12:35 PM EST 1 drop documented in this [...] Procedure), Routine 1235 (Given - Provid er: Jennifer Escamilla RN) Continuous Medication Order 03/13/2022 03/14/2022 [...] Shanta Castellon RN - Comment: post op) qlwctibe-qxhfoyqsg-xpxESEGPzelym (Dexacine) 3.5 mg/g-10,000 unit/g-0.1 % ophthalmic ointment [...] RN) documented in this encounter Care Teams Expediter Service Order Relationship Specialty Start Date End Date Ambrose Luna [facility] [address] [place] [address] PCP - General Internal Medicine 03/12/22 documented as of this encounter
--- OUTSIDE RECORDS SUMMARY | 2024-02-09 12:38 | XMS_ITS | Encounter Summary ---
Author Organization [facility] [place] [address] Care Team Providers Care Nail Setter Name Role Phone Emery Goel MD Primary Care Provider [phone] Encounter Details Date Type Department Care Team (Late st Contact Info) Description 06/14/2013 4:45 PM EDT Ancillary Appointment [address] [place] [address] Yfn Nuñez Jr., MD Social History Tobacco Use Types Packs/Day Years Used Date Smoking Tobacco: Never Assessed Sex and Gender Information Value Date Recorded Sex Assigned at Not on file Gender Identity Not on file Sexual Orientation Not on file documented as of this encounter Plan of Treatment Not on file documented as of this encounter Visit Diagnoses Not on filedocumented in this encounter Care Teams Nail Setter Relationship Specialty Start Date End Date Emery Goel MD PCP - General 01/06/10 02/13/19 documented as of this encounter
--- OUTSIDE RECORDS SUMMARY | 2024-02-09 12:38 | XMS_ITS | Encounter Summary ---
Author Organization [facility] Address [address] [place] [address] Care Team Providers Care Blocker Metal Base Name Role Phone Ambrose Luna RPA Primary Care Provider [phone] Reason for Visit * Reason Onset Date Comments Medication Management 05/22/2020 Encounter Details Date Type Department Care Team (Late st Contact Info) Description 05/22/2020 Telephone [facility] [place] [facility] [address] [place], [place] [id number] Emery Lira RN Medication Management Social History Tobacco Use Types Packs/Day Years [...] Date dilTIAZem (CARDIZEM CD) 120 mg capsule Take 1 Cap by mouth daily. 90 Cap 3 05/22/2020 03/18/2021 documented in this encounter Miscellaneous Notes * Telephone Encounter - Emery Lira RN - 05/22/2020 1059 EDT * Spoke with PCP office who will contact patient to inform him of change * Rx sent to [facility] for Diltiazem CD 120mg daily * Metoprolol discontinued from medication list * PCP will have pt f/u with Urology for continued issues * Telephone Encounter - Sudhakar Fitzgerald MD - 05/22/2020 1050 EDT Stop metoprolol b/o erectile dysfunction. Start diltiazem extended release 120 mg daily for rate control of Afib. * Telephone Encounter - Emery Lira RN - 05/22/2020 1013 EDT Pts PCP (Seng Chand DNP) calling regarding patient: * Was in for annual physical today and asked about Erectile Dysfunction * Pt reports he has been on Metoprolol for many years and he noted inability to have an erection assoon as he started the Metoprolol * Has not spoken with anyone about it previously, but is causing significant quality of life issues. PCP has checked usual suspect labs without revealing other sources * Patient has not been evaluated by Urology * PCP and patient asking if Metoprolol could be the source of the E.D. and about possible alternatives Routing to documented in this encounter Plan of Treatment Upcoming Encounters Date Type Department Care Team (Late st Contact Info) Description 03/14/2024 8:15 EST Office Visit [facility] Cardiology Clinic [address] [place] [address] Sudhakar Fitzgerald MD [address] [facility] [address] [place] [phone] documented as of this encounter Visit Diagnoses Not on filedocumented in this encounter Discontinued Medications Medication Sig Discontinue Reason Start Date End Da te metoprolol XL (TOPROL-XL) 50 mg tablet Take 100 mg by mouth daily. Side effects 03/26/2019 05/22/2020 documented as of this encounter Care Teams Blocker Metal Base Relationship Specialty Start Date End Date Ambrose Luna RPA [address] [place] [address] PCP - General Family Medicine - Primary Care 02/15/20 documented as of this encounter
--- OUTSIDE RECORDS SUMMARY | 2024-02-09 12:38 | XMS_ITS | Encounter Summary ---
Author Organization [facility] [place] [address] Care Team Providers Care Lighting Designer Name Role Phone Unknown Primary Care Provider Unavailabl e Reason for Visit * Reason Comments Vitreous Hemorrhage OS Encounter Details Date Type Department Care Team (Late st Contact Info) Description 02/26/2022 2:45 PM EST Office [place] [address] Michael Irizarry MD Vitreous hemorrhage of left eye (02/14/22) Social History Tobacco Use Types Packs/Day Years Used Date Smoking Tobacco: Never Assessed Sex and Gender Information Value Date Recorded Sex Assigned at Not on file Gender Identity Not on file Sexual Orientation Not on file documented as of this encounter Progress Notes * Michael Irizarry MD - 02/26/2022 2:45 PM EST ASSESSMENT/PLAN: 1. Vitreous hemorrhage of left eye (02/14/22) Visual Acuity Visual Acuity (Snellen - Linear) Right Left Dist cc 20/25 -2 HM Near cc 20/20 unable Correction: Glasses 1. Vitreous Hemorrhage OS (02/14/22) Still no RD or tumors. VA still blurry. Discussed the option of PPV vs observation and agreed with the former. The patient is on Eliquis and he will see the travel counselor in 2wk and discuss the optionof stopping it (if safe) Follow up 2wk for DFE OS, B-scan OS documented in this encounter Plan of Treatment Not on file documented as of this encounter Procedures Procedure Name Priority Date/Time Associated Diagnosis Comments US B-SCAN - OS - LEFT EYE Routine 02/26/2022 4:05 PM EST Vitreous hemorrhage of left eye (02/14/22) documented in this encounter Results * US B-Scan - OS - Left Eye (02/26/2022 4:05 PM EST) Anatomical Region Laterality Modality Other Narrative 02/26/2022 4:05 PM EST Reliability was good. Progression has no prior data. Quality was good. Findings included vitreous hemorrhage. Notes Plan: See a/p Michael Irizarry MD OPHTHALMOLOGY SERVICES ORDERABLES documented in this encounter Visit Diagnoses Diagnosis Vitreous hemorrhage of left eye (02/14/22) Vitreous hemorrhage documented in this encounter Care Teams Lighting Designer Relationship Specialty Start Date End Date Unknown None PCP - General 02/14/19 03/11/22 documented as of this encounter
--- OUTSIDE RECORDS SUMMARY | 2024-02-09 12:38 | XMS_ITS | Encounter Summary ---
Author Organization [facility] Address [address] [place] [address] Care Team Providers Care Warehouse Processor Name Role Phone Seng Olsen [facility] Primary Care Provider [phone] Reason for Visit * Reason Onset Date Comments No Show 01/16/2020 Encounter Details Date Type Department Care Team (Late st Contact Info) Description 01/16/2020 Telephone [facility] [place] Cardiology Clinic [address] [place] [address] Sudhakar Fitzgerald MD [address] [place] [address] [address] [place] [address] No Show Social History Tobacco Use Types Packs/Day Years [...] encounter Miscellaneous Notes * Telephone Encounter - Patel Nolasco - 01/16/2020 1008 EST [id number] to resched no show appt from 01/15/20. Recall placed documented in this encounter Plan of Treatment Upcoming Encounters Date Type Department Care Team (Late st Contact Info) Description 03/14/2024 8:15 EST Office Visit [facility] Cardiology Clinic [address] [place] [address] Sudhakar Fitzgerald MD [address] [place] [address]-[address] [place] [phone] documented as of this encounter Visit Diagnoses Not on filedocumented in this encounter Care Teams Warehouse Processor Relationship Specialty Start Date End Date Seng Olsen, DNP [facility] [place] [phone] PCP - General 07/16/19 02/14/20 documented as of this encounter
--- OUTSIDE RECORDS SUMMARY | 2024-02-09 12:39 | XMS_ITS | Encounter Summary ---
Author Organization [facility] Address [address] [place] [address] Care Team Providers Care Mixer Operator Vacuum Pan Salt Name Role Phone Unavailable Primary Care Provider Unavailabl e Encounter Details Date Type Department Care Team (Late st Contact Info) Description 03/06/2007 Results Only [facility] - Maple conversion [address] [place] [address] Sonja Goel MD [address] [place] [address] Social History Tobacco Use Types Packs/Day Years [...] Info) Description 03/14/2024 8:15 EST Office Visit [facility] Cardiology Clinic [address] [place] [address] Sudhakar Fitzgerald MD [address] [facility] [address]OB[address] [place] [phone] documented as of this encounter Procedures Procedure Name Priority Date/Time Associated Diagnosis Comments SURGICAL PATHOLOGY Routine 03/06/2007 0:00 EST documented in this encounter Results * SURGICAL PATHOLOGY (03/06/2007 0:00 EST) Pathology Report: SURGICAL PATHOLOGY REPORT Reports generated via electronic interface contain original data; however they are lacking the format of the original report. Caution should be taken when reading/interpreti ng unformatted reports. Name: ? JACK ESPINO ? Accession #: ? [id number] ? : ? 1955 (Age: 51) ??M ? Collect Date: ? 03/06/2007 ? Location: ? [facility] ? Receive Date: ? 03/07/2007 ? Provider: SONJA GOEL MD Copy to: ? Final Pathologic Diagnosis: ? Skin of jain, left, shave biopsy: - Basal cell carcinoma, superficial and nodular types, extending to the deep tissue edge. Document reviewed and electronically signed by: Amado Driscoll MD Report ??Date: 03/08/2007 17:01 By the signature above, the attending physician certifies that he/she has personally conducted a gross and/or microscopic examination of the described specimens and rendered or confirmed the above diagnosis. Specimen(s) Received: ? Shave biopsy Clinical History: ? Non-healing lesion L jain; ? SSCA Gross Description: ? Received in formalin labelled Kenzie and left jain is an irregular 1.1 x 0.9 x less than 0.1 cm pale fisher skin shave. ??Centrally there is a 0.6 x 0.5 x less than 0.1 cm centrally eroded hemorrhagic crust. ??The specimen is quadrisected and is entirely submitted in one cassette. /[facility] End of Report JAYME MELCHOR 03/06/2007 03/07/2007 15: 06 EST us Sonja Goel MD PATHOLOGY ORDERABLES Final Resu lt [facility] [address] [place] [address] documented in this encounter Visit Diagnoses Not on filedocumented in this encounter
--- OUTSIDE RECORDS SUMMARY | 2024-02-09 12:39 | XMS_ITS | Encounter Summary ---
Author Organization [facility] Address [address] [place] [address] Care Team Providers Care Medical Artist Name Role Phone Unavailable Primary Care Provider Unavailabl e Encounter Details Date Type Department Care Team (Late st Contact Info) Description 02/20/2008 Before PRISM Converted Visit (Maple) [facility] - Maple conversion [address] [place] [address] Sonja Goel MD [address] [place] [address] Social History Tobacco Use Types Packs/Day [...] [facility] [address] [place], [place] [address] Sudhakar Fitzgerald MD [address] [facility] [address] [place] [address] documented as of this encounter Procedures Procedure Name Priority Date/Time Associated Diagnosis Comments SURGICAL PATHOLOGY Routine 02/20/2008 0:00 EST documented in this encounter Results * SURGICAL PATHOLOGY (02/20/2008 0:00 EST) Pathology Report: SURGICAL PATHOLOGY REPORT ? Reports generated via electronic interface contain original data; ? however they are lacking the format of the original report. ? Caution should be taken when reading/interpreti ng unformatted reports. ? Name: ? JACK ESPINO ? Accession #: ? [id number] ? : ? 1955 (Age: 52) ??M ? Collect Date: ? 02/20/2008 ? Location: ? [facility] ? Receive Date: ? 02/21/2008 ? Provider: SONJA S RANDI MD ? Copy to: ? Final Pathologic Diagnosis: ? Skin of sabianism, left, re-excision: ? 1. ?Basal cell carcinoma, superficial and nodular types. See comment. ? - Lesion measures approximately 0.2 mm to the nearest peripheral margin. ?? 2. ?Dermal scar. ? Comment: ? Present is residual basal cell carcinoma. Basal cell carcinoma measures ? approximately 0.2 mm from the nearest peripheral margin, specifically where the deeper aspect of the peripheral margin. ??(Dr. Love)/tmg ? Document reviewed and electronically signed by: ? Serene Love MD ? Report ??Date: 02/22/2008 14:33 ? By the signature above, the attending physician certifies that he/she has ? personally conducted a gross and/or microscopic examination of the described ? specimens and rendered or confirmed the above diagnosis. ? Specimen(s) Received: ? Excisional biopsy L sabianism ? Clinical History: ? Re-excision of BCCA with (+) margins ? Gross Description: ? Received in formalin labelled Kenzie and Kacey padgett is the unoriented ? product of an excision of fisher-white skin and subcutis measuring 2.7 x 1.0 cm and excised to a depth of 0.4 cm. ??Centrally on the skin surface is an irregularly ?? shaped, healing, superficial defect measuring 0.7 x 0.5 cm. ??The area ? surrounding this defect is white and without the usual skin marking. The margins of the specimen are inked black and the specimen is serially sectioned and ? submitted entirely as (A1)-(A4) central sections and (A5) tips reverse en face. (Ayaka Warner)/mpl ? End of Report ? JAYME MELCHOR 02/20/2008 02/21/2008 9:4 3 EST us Sonja Goel MD PATHOLOGY ORDERABLES Final Resu lt [facility] [address] [place] [address] documented in this encounter Visit Diagnoses Not on filedocumented in this encounter
--- OUTSIDE RECORDS SUMMARY | 2024-02-09 12:39 | XMS_ITS | Encounter Summary ---
Author Organization [facility] Address [address] [place] [address] Care Team Providers Care Small Arms Artillery Repairer Name Role Phone Unavailable Primary Care Provider Unavailabl e Encounter Details Date Type Department Care Team (Latest Contact Info) Description 07/16/2014 14:06 EDT - 07/16/2014 23:59 EDT Hospital Encounter [address] [address] Unknown, Provider, Discharge Disposition: Home or Self Care Social [...] Code Departure Means Destination Home or Self Prison documented in this encounter Plan of Treatment Upcoming Encounters Date Type Department Care Team (Late st Contact Info) Description 03/14/2024 8:15 EST Office Visit [facility] [address] [place] [address] Sudhakar Fitzgerald MD 130 [facility] [address] [place] [phone] documented as of this encounter Visit Diagnoses Not on filedocumented in this encounter
--- OUTSIDE RECORDS SUMMARY | 2024-02-09 12:39 | XMS_ITS | Encounter Summary ---
Author Organization [facility] Address [address] [place] [address] Care Team Providers Care Box Inspector Name Role Phone Unavailable Primary Care Provider Unavailabl e Encounter Details Date Type Department Care Team (Late st Contact Info) Description 03/13/2007 Results Only [facility] - Maple conversion [address] [place] [address] Sonja Goel MD [address] [place] [address] Social History Tobacco Use Types Packs/Day [...] Info) Description 03/14/2024 8:15 EST Office Visit [facility] Clinic [address] [place] [address] Sudhakar Fitzgerald MD 130 [facility] [address] [place] [phone] documented as of this encounter Procedures Procedure Name Priority Date/Time Associated Diagnosis Comments SURGICAL PATHOLOGY Routine 03/13/2007 0:00 EST documented in this encounter Results * SURGICAL PATHOLOGY (03/13/2007 0:00 EST) Pathology Report: SURGICAL PATHOLOGY REPORT Reports generated via electronic interface contain original data; however they are lacking the format of the original report. Caution should be taken when reading/interpreti ng unformatted reports. Name: ? JACK ESPINO ? Accession #: ? [id number] ? : ? 1955 (Age: 51) ??M ? Collect Date: ? 03/13/2007 ? Location: ? [facility] ? Receive Date: ? 03/14/2007 ? Provider: SONJA GOEL MD Copy to: ? Final Pathologic Diagnosis: ? Skin of lower extremity, right, excisional biopsy: 1. ?Dermatofibroma. ? - Dermatofibroma extends to peripheral and deep margins of excisional biopsy specimen. Microscopic Description: ? There is irregular epidermal hyperplasia with basal hyperpigmentation. Within the dermis, there is a spindle cell proliferation accompanied by histiocytes. ??The spindle cells have plump nuclei that vary to a mild degree in size and shape. ??The proliferation is associated with thick bundles of collagen (collagen trapping) and areas of sclerosis. ??(Dr. Mccarthy)/[facility] Document reviewed and electronically signed by: ERICKA MCCARTHY MD Report ??Date: 03/15/2007 13:43 By the signature above, the attending physician certifies that he/she has personally conducted a gross and/or microscopic examination of the described specimens and rendered or confirmed the above diagnosis. Specimen(s) Received: ? Excisional biopsy RLE Clinical History: ? BCCa Gross Description: ? Received in formalin labelled Kenzie butt Davis RLE is an unoriented elliptical shaped excision of skin which measures 1.5 x 1.0 cm and is excised to a depth of 0.3 cm. ??There is a fisher nodule which measures 1.0 x 0.7 x 0.2 cm. The margins are inked blue. ??The specimen is serially sectioned and entirely submitted as (A1) tips, reverse en face and (A2) and (A3) central sections. (Dr. Rodarte)/flor End of Report JAYME MELCHOR 03/13/2007 03/14/2007 13: 17 EST us Sonja Goel MD PATHOLOGY ORDERABLES Final Resu lt [facility] [address] [place] [address] documented in this encounter Visit Diagnoses Not on filedocumented in this encounter
--- OUTSIDE RECORDS SUMMARY | 2024-02-09 12:39 | XMS_ITS | Encounter Summary ---
Author Organization [facility] Address [address] [place] [address] Care Team Providers Care Liquid Fertilizer Servicer Name Role Phone Unavailable Primary Care Provider Unavailabl e Encounter Details Date Type Department Care Team (Late st Contact Info) Description 07/16/2014 Results Only [facility]- PRISM [phone] Travis Nguyen MD [address] [place] [phone] Social History Tobacco Use Types Packs/Day Years [...] Info) Description 03/14/2024 8:15 EST Office Visit [facility] [address] [place] [address] Sudhakar Fitzgerald MD 130 [facility] [place] [address] documented as of this encounter Procedures Procedure Name Priority Date/Time Associated Diagnosis Comments CYTOPATHOLOGY Routine 07/16/2014 0:00 EDT documented in this encounter Results * CYTOPATHOLOGY (07/16/2014 0:00 EDT) Pathology Report: CYTOPATHOLOGY REPORT Reports generated via electronic interface contain original data; however they are lacking the format of the original report. Caution should be taken when reading/interpret ing unformatted reports. Name: ? JACK ESPINO ? Accession #: ? [id number] : ? 1955 (Age: 58) ??M ?Collect Date: ? 07/16/2014 Location: ? [facility] ? Receive Date: ? 07/18/2014 Provider: ? TRAVIS NGUYEN MD Copy to: ?SONJA BRYAN MD ? CYTOLOGIC DIAGNOSIS: URINE, VOIDED, CYTOLOGIC EVALUATION: - ??Negative for malignant cells. Document reviewed and electronically signed by: ? SISSY CASTRO MD Report Date: ??07/18/2014 16:57 By the signature above, the attending physician certifies that he/she has personally conducted a gross and/or microscopic examination of the described specimens and rendered or confirmed the above diagnosis. Specimen Type: ? Urine, Voided Clinical History: ? Gross hematuria. clinical diagnosis code: ??599.71 ? Gross Description: ? 80ccs of clear yellow fluid (Cytolyt added) were received and processed by selective cellular enhancement technique. ? End of Report [facility] 07/16/2014 07/18/2014 7:5 4 EDT us Travis Nguyen MD PATHOLOGY ORDERABLES Final Result [facility] [address] [place] [address] documented in this encounter Visit Diagnoses Not on filedocumented in this encounter
--- OUTSIDE RECORDS SUMMARY | 2024-02-09 12:39 | XMS_ITS | Encounter Summary ---
Author Organization [facility] Address [address] [place] [address] Care Team Providers Care Table Lever Operator Name Role Phone Emery Goel MD Primary Care Provider [phone] Encounter Details Date Type Department Care Team (Latest Contact Info) Description 09/30/2017 10:01 EDT - 09/30/2017 23:59 EDT Hospital Encounter [facility] - [address] [address] Unknown, Provider, MD Discharge Disposition: Home or [...] Code Departure Means Destination Home or Self Group Home documented in this encounter Plan of Treatment Upcoming Encounters Date Type Department Care Team (Late st Contact Info) Description 03/14/2024 8:15 EST Office Visit [facility]iology [facility] [address] [place] [address] Sudhakar Fitzgerald MD 130 [facility] [place] [address] documented as of this encounter Visit Diagnoses Not on filedocumented in this encounter Care Teams Table Lever Operator Relationship Specialty Start Date End Date Emery Goel MD PCP - General 07/23/14 07/15/19 documented as of this encounter
--- OUTSIDE RECORDS SUMMARY | 2024-02-09 12:39 | XMS_ITS | Encounter Summary ---
Author Organization [facility] Address [address] [place] [address] Care Team Providers Care Population Geneticist Name Role Phone Unavailable Primary Care Provider Unavailabl e Encounter Details Date Type Department Care Team (Late st Contact Info) Description 04/11/2007 Results Only [facility] - Maple conversion [address] [place] [address] Sonja Goel MD [address] [place] [address] Social History Tobacco Use Types Packs/Day [...] Info) Description 03/14/2024 8:15 EST Office Visit [facility] Clinic [address] [place] [address] Sudhakar Fitzgerald MD 130 [facility] [address] [place] [phone] documented as of this encounter Procedures Procedure Name Priority Date/Time Associated Diagnosis Comments SURGICAL PATHOLOGY Routine 04/11/2007 0:00 EST documented in this encounter Results * SURGICAL PATHOLOGY (04/11/2007 0:00 EST) Pathology Report: SURGICAL PATHOLOGY REPORT Reports generated via electronic interface contain original data; however they are lacking the format of the original report. Caution should be taken when reading/interpreti ng unformatted reports. Name: ? JACK ESPINO ? Accession #: ? [id number] ? : ? 1955 (Age: 51) ??M ? Collect Date: ? 04/11/2007 ? Location: ? [facility] ? Receive Date: ? 04/12/2007 ? Provider: SONJA GOEL MD Copy to: ? Final Pathologic Diagnosis: ? Skin of lower extremity, left, shave biopsy: - Dermatofibroma. Microscopic Description: ? There is irregular epidermal hyperplasia with basal hyperpigmentation. Within the dermis, there is a spindle cell proliferation accompanied by histiocytes. ??The spindle cells have plump nuclei that vary to a mild degree in size and shape. ??The proliferation is associated with thick bundles of collagen (collagen trapping) and areas of sclerosis. ??(Dr. Mccarthy)/[facility] Document reviewed and electronically signed by: Ericka Mccarthy MD Report ??Date: 04/13/2007 14:58 By the signature above, the attending physician certifies that he/she has personally conducted a gross and/or microscopic examination of the described specimens and rendered or confirmed the above diagnosis. Specimen(s) Received: ? Shave biopsy LLE Clinical History: ? Non-healing lesion; ? BCCa Gross Description: ? Received in formalin labelled Kenzie and PRIYANKAE is a 1.0 x 0.9 x 0.2 cm shave biopsy of fisher-white skin with a nodular surface. ??Trisected and submitted in one cassette. ??(Dr. Cadena)/ljn End of Report [facility] 04/11/2007 04/12/2007 14: 50 EST us Sonja Goel MD PATHOLOGY ORDERABLES Final Resu lt [facility] [address] [place] [address] documented in this encounter Visit Diagnoses Not on filedocumented in this encounter
--- OUTSIDE RECORDS SUMMARY | 2024-02-09 12:39 | XMS_ITS | Encounter Summary ---
Author Organization [facility] Address [address] [place] [address] Care Team Providers Care Branch Or Department Chief Librarian Name Role Phone Unavailable Primary Care Provider Unavailabl e Encounter Details Date Type Department Care Team (Late st Contact Info) Description 12/27/2001 Results Only [facility] - Map conversion [address] [place] [address] Travis Magana, DO [address] [facility] [address] [address] [place] [address] Social History Tobacco Use Types Packs/Day [...] Description 03/14/2024 8:[address] [facility] [address] [place], [place] [phone] Sudhakar Fitzgerald MD 130 [facility] [address] [place] [address] documented as of this encounter Procedures Procedure Name Priority Date/Time Associated Diagnosis Comments SURGICAL PATHOLOGY Routine 12/27/2001 0:00 EST documented in this encounter Results * SURGICAL PATHOLOGY (12/27/2001 0:00 EST) Pathology Report: SURGICAL PATHOLOGY REPORT Reports generated via electronic interface contain original data; however they are lacking the format of the original report. Caution should be taken when reading/interpreti ng unformatted reports. Name: ? JACK ESPINO ? Accession #: ? [id number] ? : ? 1955 (Age: 46) ??M ? Collect Date: ? 12/27/2001 ? Location: ? [facility] ? Receive Date: ? 12/27/2001 ? Provider: TRAVIS MAGANA DO Copy to: TALAT BRYAN MD ? Final Pathologic Diagnosis: ? Gallbladder, cholecystectomy: - Focally active, chronic cholecystitis. Document reviewed and electronically signed by: John Tidwell MD Report ??Date: 12/29/2001 15:34 By the signature above, the attending physician certifies that he/she has personally conducted a gross and/or microscopic examination of the described specimens and rendered or confirmed the above diagnosis. Specimen(s) Received: ? Gallbladder Clinical History: ? Biliary colic Gross Description: ? Received in formalin labelled Kenzie and 1 ??gallbladder is a partially opened product of a cholecystectomy which measures 7.0 cm in length, 3.5 cm in diameter and is surfaced by a fisher glistening serosa. ??Upon sectioning, the mucosa is fisher-green, smooth to velvety and the underlying wall averages 0.2 cm in thickness. ??The lumen contains a scant amount of green mucoid bile with no choleliths grossly identified. ??The cystic duct measures 0.3 cm in length, 0.3 cm in diameter and is not grossly patent. The cystic duct node is not grossly identified. ??Three outside energy sales representatives sections, including two sections of gallbladder and the cystic duct margin are submitted in one cassette. ?? (Krystal Billings)/[facility] End of Report JAYME MELCHOR 12/27/2001 12/27/2001 15: 15 EST us Travis Magana DO PATHOLOGY ORDERABLES Fi nal Result [facility] [address] [place] [address] documented in this encounter Visit Diagnoses Not on filedocumented in this encounter
--- OUTSIDE RECORDS SUMMARY | 2024-02-09 12:39 | XMS_ITS | Encounter Summary ---
Author Organization [facility] Address [address] [place] [address] Care Team Providers Care Moisture Tester Name Role Phone Sonja Goel MD Primary Care Provider [phone] Encounter Details Date Type Department Care Team (Late st Contact Info) Description 09/30/2017 Results Only [facility] [phone] Dale Cano, DO [address] [place] [address] Social History Tobacco Use Types Packs/Day Years [...] EST Office Visit [facility] [address] [place] [address] Sudhakar Fitzgerald MD 130 [facility] [place] [address] documented as of this encounter Procedures Procedure Name Priority Date/Time Associated Diagnosis Comments SURGICAL PATHOLOGY Routine 09/30/2017 16 :34 EDT documented in this encounter Results * SURGICAL PATHOLOGY (09/30/2017 16:34 EDT) Pathology Report: SURGICAL PATHOLOGY REPORT Reports generated via electronic interface contain original data; however they are lacking the format of the original report. Caution should be taken when reading/interpreting unformatted reports. Name: ? JACK ESPINO ? Accession #: ? [id number] ? : ? 1955 (Age: 61) ??M ? Collect Date: ? 09/30/2017 ? Location: ? [facility] ? Receive Date: ? 09/30/2017 ? Provider: DALE CANO DO Copy to: SONJA GOEL MD ? Final Pathologic Diagnosis: A. POLYP, CECUM, COLON, BIOPSY: - ??Fragments of polypoid benign colonic mucosa. - ??Negative for dysplasia or malignancy. See comment. B. POLYP, RECTUM, COLON, BIOPSY: - ??Benign colonic mucosa with surface hyperplastic changes. - ??Negative for dysplasia or malignancy. See comment. Comment: The clinical history has been noted and deeper resections are reviewed. Part A is remarkable for fragments of benign polypoid colonic mucosa with no evidence of hyperplasia, dysplasia or malignancy in sections examined. Part B is remarkable for fragments of benign colonic mucosa with hyperplastic changes along the surface. No dysplasia or malignancy is seen in sections examined. This case was reviewed in intradepartmental consensus conference on 10/04/2017. Dr. Heck 10/05/2017 11:19 AM Document reviewed and electronically signed by: DANIELE HECK MD Report ??Date: 10/05/2017 11:21 By the signature above, the attending physician certifies that he/she has personally conducted a gross and/or microscopic examination of the described specimens and rendered or confirmed the above diagnosis. Specimen(s) Received: A. ??Cecal polyp B. ??Bx rectum Clinical History: Rectal mass Gross Description: A. ?Received in formalin labelled with proper patient identification (initials S, S) and cecal polyp are two pink-fisher tissues (0.8 x 0.2 x 0.2 cm and 0.2 x 0.2 x 0.2 cm). Entirely submitted in A1. B. ?Received in formalin labelled with proper patient identification (initials S, S) and rectum bx are four pink-fisher tissues (0.2 x 0.2 x 0.1 cm to 0.3 x 0.3 x 0.3 cm). Entirely submitted in B1 and B2. Dr. Elliott 10/01/2017 10:38 AM End of Report [facility] 09/30/2017 16:3 4 EDT 09/30/2017 16:34 EDT us Dale Cano DO PATHOLOGY ORDERABLES Final Res ult [facility] [address] [place] [address] documented in this encounter Visit Diagnoses Not on filedocumented in this encounter Care Teams Moisture Tester Relationship Specialty Start Date End Date Sonja Goel MD PCP - General 07/23/14 07/15/19 documented as of this encounter
[2024-02-09 21:22] LABS: PSA, Screening 3.1 ng/mL (<=6.5)
== END 2024-02-09 12:34 | disposition home or self-care (01) ==
LOC: NCHCN 12:33
PROVIDERS: PCP Physician Assistant; Visit Provider Physician Assistant
DX: Z12.5 Encounter for screening for malignant neoplasm of prostate (principal)
CPT/HCPCS: 84153

== ENCOUNTER 2024-03-26 15:24 | Outpatient (CLI) | payer MEDICARE, BC, SELFPAY ==
--- NOTE | 2024-03-26 07:45 | DI.RAD_ITS ---
Exam(s) XR KNEE RT 2V AP,LAT EXAM: XR KNEE RT 2V AP,LAT CLINICAL HISTORY: ANNUAL F/U R TKA. TECHNIQUE: 2D digital imaging was performed. COMPARISON: CR XR KNEE RT 1V from 04/04/2023 FINDINGS: Two views Stable position and alignment components of the knee prosthesis. No acute fracture or loosening evid ent. Again noted is a triangular osteophytic density in the anterior the in the anterior intra-articular H offa fat pad region, unchanged from previous. IMPRESSION: Stable satisfactory appearance. Anterior intra-articular calcification again noted. This measures a pproximately 1.9 x 1.3 cm, as measured on the lateral view. DATA REPOSITORY: RADIATION DOSE DELIVERED:
== END 2024-03-26 15:25 | disposition home or self-care (01) ==
LOC: DIORS 15:25
PROVIDERS: PCP Physician Assistant; Visit Provider Student in an Organized Health Care Education/Training Program
DX: Z96.651 Presence of right artificial knee joint (principal); Z47.1 Aftercare following joint replacement surgery
CPT/HCPCS: 99213; 73560

== ENCOUNTER 2024-07-16 15:59 | Outpatient (REF) | payer MEDICARE, BC, SELFPAY ==
[2024-07-16 15:34] LABS: HCT 48.6 % (40.0-50.0); HGB 16.2 g/dL (13.5-17.5); MCH 29.7 pg (27.0-33.0); MCHC 33.3 % (32.0-36.0); MCV 89 fL (80-95); MPV 11.1 fL (8.0-11.0); Platelet Count 251 10^3/uL (130-400); RBC 5.46 10^6/uL (4.36-5.78); RDW 14.6 % (11.8-14.1); RDW-SD 47.8 fL; WBC 7.12 10^3/uL (4.4-10.8)
[2024-07-16 15:49] LABS: ALT 30 U/L (16-63); AST 19 U/L (15-37); Albumin 3.6 g/dL (3.4-5.0); Alkaline Phosphatase 151 U/L (46-116); Anion Gap 6.4 mmol/L (3-11); BUN 19 mg/dL (7-18); Bilirubin, Total 0.8 mg/dL (0.2-1.0); CO2 29.6 mmol/L (21.0-32.0); Calcium 8.8 mg/dL (8.5-10.1); Calculated LDL 62 mg/dL (<100); Chloride 104 mmol/L (98-107); Cholesterol 123 mg/dL (<200); Estimated GFR 80.97 (mL/min/1.73m2); Glucose 93 mg/dL (74-106); HDL Cholesterol 50 mg/dL (>or=40); Potassium 4.4 mmol/L (3.5-5.1); Sodium 140 mmol/L (136-145); Total Protein 7.1 g/dL (6.4-8.2); Triglyceride 59 mg/dL (<150)
[2024-07-16 15:50] LABS: Hemoglobin A1C 5.4 % (<5.7)
== END 2024-07-16 16:00 | disposition home or self-care (01) ==
LOC: NCHCN 15:59
PROVIDERS: PCP Physician Assistant; Visit Provider Physician Assistant
DX: E78.5 Hyperlipidemia, unspecified (principal); R73.03 Prediabetes; I48.0 Paroxysmal atrial fibrillation
CPT/HCPCS: 80053; 80061; 85027; 83036

== ENCOUNTER 2024-10-25 03:15 | Outpatient (CLI) | payer MEDICARE, BC, SELFPAY ==
--- NOTE | 2024-10-25 07:59 | DI.RAD_ITS ---
Exam(s) XR SHOULDER RT COMPLETE 2+V EXAM: XR SHOULDER RT COMPLETE 2+V CLINICAL HISTORY: RT SHOULDER PAIN,M25.511, NO INJURY. TECHNIQUE: 2D digital imaging was performed. COMPARISON: No exams were available for comparison FINDINGS: Five views No evidence of fracture or dislocation or abnormal soft tissue calcifications. The subacromial space is not diminished. There are mild-moderate degenerative changes in the glenohumeral joint. There is also degenerative cyst in the greater tuberosity on the lateral aspect of the humeral head noted. There are no degenerative subarticular cysts evident in the osseous glenoid. There are small opposing osteophytes on the inferior articular surface of the humeral head and osseous glenoid. There are also significant degenerative changes in the acromioclavicular joint. There is sclerotic density in the coracoid process consistent with a benign bone island. IMPRESSION: Degenerative changes in the glenohumeral and AC joints. Subacromial space is not diminished. DATA REPOSITORY: RADIATION DOSE DELIVERED:
== END 2024-10-25 03:35 ==
LOC: DI 03:16
PROVIDERS: PCP Physician Assistant; Visit Provider Physician Assistant
DX: M25.511 Pain in right shoulder (principal)
CPT/HCPCS: 73030